=== PATIENT | male | born 1960 | race Caucasian/White ===

== ENCOUNTER 2018-07-06 06:25 | Day surgery (SDC) | payer OTHER ==
--- NOTE | 2018-07-04 09:01 | RAD REPORT ---
EXAM DESCRIPTION: RAD - Chest Pa And Lat (2 Views) - 07/04/2018 8:46 am CLINICAL HISTORY: Preop chest, pending cardiac catheterization COMPARISON: May 2014 TECHNIQUE: PA and lateral views of the chest were obtained. FINDINGS: The lungs are clear of a focal process. Interstitial pattern is prominent but stable. Ster notomy wires are in place. Heart size is normal and central vasculature is within normal limits. N o pleural effusion or pneumothorax seen. No acute bony finding noted. No aortic abnormality. IMPRESSION: No acute cardiopulmonary process. Prominent interstitial pattern matches 2015.
[2018-07-04 09:08] LABS: Absolute Lymphocytes (CBC) 2.3 K/uL (0.7-4.9); Basophils % 0.3 % (0-1.3); Eosinophils % 3.2 % (0-4.4); Lymphocytes % 23.2 % (15.3-44.8); MPV 9.5 fL (7.6-11.3); Monocytes % 10.5 % (3.3-12.3); RBC Red Blood Cell Count 5.48 M/uL (4.33-5.43)
[2018-07-04 09:12] LABS: Protime INR 1.11
[2018-07-04 09:20] LABS: Potassium 4.7 mmol/L (3.5-5.1)
[2018-07-06] MEDS ORDERED: LIDOCAINE 1% MPF 30 ML VIAL ONE (06:53)
[2018-07-06] MEDS ORDERED: HEPA 1000U/500MLS 1,000 UNIT/500 ML BAG IV ONE ×2 (06:53→06:59)
[2018-07-06] MEDS ORDERED: NA CHLORIDE 0.9% 500 ML ONE (06:54)
[2018-07-06] MEDS ORDERED: MIDAZOLAM HCL 2 MG/2 ML INJ ONE (07:40)
[2018-07-06] MEDS ORDERED: FENTANYL CITR 100 MCG/2 ML ONE (07:40)
[2018-07-06] MEDS ORDERED: HEPARIN 5000 UNIT/ML 1 ML VIAL ONE (08:03)
[2018-07-06] MEDS ORDERED: ACETYLCYST 20% 4 ML VIAL IH ONE (08:37)
[2018-07-06] MEDS ORDERED: CLOPIDOGREL 75 MG TABLET ONE (08:45)
[2018-07-06 11:36] VITALS: TEMP 97.8; O2SAT 97
[2018-07-06 12:39] VITALS: BP 142/82
--- NOTE | 2018-07-07 01:30 | OP ---
Date of Procedure: 07/06/2018 Surgeon: Garfield Adam MD Schedule Planning Manager: Rei Rutledge and Ms. Martinez. The patient received 300 mg of Plavix after the procedure. He will have a 4-hour bedrest and go home today. He will see me in the office in 2 weeks. No change in his medical regimen. He will be give n Mucomyst because of renal insufficiency with a creatinine 1.4. He was told to hold his metformin f or 48 hours after he goes home. Procedure: Abdominal angiogram with runoff with an angioplasty and stent of the proximal left superf icial femoral artery. Indications: Peripheral arterial disease and claudication. The patient is a 57-year-old white male with history of CAD, CHF, recent claudication documented, art erial Doppler that was positive bilaterally, admitted to the labeling specialist as an outpatient on 07/06/2018. Description Of Procedure: The patient was prepped and draped in the routine sterile fashion, given 4 mg of Versed for sedation. A 6-Yakut sheath introduced in the right common femoral artery. A pigt ail catheter was used to do the abdominal angiography. This was advanced above the renals. Abdomina l angiogram with runoff revealed normal aorta, normal iliacs, normal renals, had multiple stenoses on the right SFA of 50% to 70% with diffuse disease [id number]. On the left side, he had a complet madhuri occluded left SFA proximally with diffuse disease [id number] as well. A 6-Yakut up-and-over sheath was used and exchanged to the first short 6-Yakut sheath. A Glidewire was used to cross the lesion successfully. This was done using a PARNELL catheter. An Damascus balloon was used, 6 x 40, to p re-dilated the lesion successfully. Following that, a Protege stent 6 x 80 was used with 0% residual and excellent flow distally. Complications: There were no complications. Blood Loss: 5 cc. Total Conscious Sedation: 45 minutes. Final Diagnoses: Peripheral arterial disease, status post successful angioplasty and stent of the le ft superficial femoral artery. His right leg does not bother him and, if he starts having claudicati on, they will bring him back to do the right superficial femoral artery. CRISTINA/LUISA Voice ID: [id number] Report ID: [id number]
== END 2018-07-06 12:41 | disposition home or self-care (01) ==
LOC: CCL 06:25
DX: I70.213 Atherosclerosis of native arteries of extremities with intermittent claudication, bilateral legs (principal); I70.92 Chronic total occlusion of artery of the extremities; I25.10 Atherosclerotic heart disease of native coronary artery without angina pectoris; I25.5 Ischemic cardiomyopathy; I10 Essential (primary) hypertension; E78.6 Lipoprotein deficiency; G47.30 Sleep apnea, unspecified; E11.9 Type 2 diabetes mellitus without complications; Z95.1 Presence of aortocoronary bypass graft; Z87.891 Personal history of nicotine dependence; Z88.1 Allergy status to other antibiotic agents; Z82.49 Family history of ischemic heart disease and other diseases of the circulatory system
CPT/HCPCS: 85025; 80048; 36415; 85610; 82962 ×3; 85730; 71046; 75630; 37226; C1893; C1760; C1887; C1769; C1725; J1644; J2250; J3010; 36200

== ENCOUNTER 2020-04-18 17:47 | Emergency (ER) | payer OTHER ==
--- OUTSIDE RECORDS SUMMARY | 2020-04-18 17:49 | XMS REPORT | Continuity of Care Document ---
:1960 Author Organization [facility] t Address [address] [place] [address] [address] [place] [address] Care Team Providers Name Role Phone Provider, Urgent Care Attending Clinician Unavailable Problems This patient has no known problems. Allergies, Adverse Reactions, Alerts This patient has no known allergies or adverse reactions. Medications This patient has no known medications. Procedures This patient has no known procedures. Encounters Start End Encounter Admission Attending Care Care Encounter Source Date/Time Date/Time Type Type Clinicians Facility Department ID 2020-03-06 2020-03-06 Urgent Provider, [facility] [id number] 12:59:17 13:19:17 [facility] [id number] [facility] [id number] [place] [phone] [address] Results This patient has no known results.
[2020-04-18 20:05] LABS: Absolute Lymphocytes (CBC) 3.6 K/uL (0.7-4.9); Basophils % 0.9 % (0-1.3); Hematocrit 42.3 % (39.6-49.0); Lymphocytes % 26.2 % (15.3-44.8); MPV 8.9 fL (7.6-11.3); RBC Red Blood Cell Count 5.37 M/uL (4.33-5.43)
[2020-04-18 20:16] LABS: Protime INR 1.33
--- NOTE | 2020-04-18 20:21 | RAD REPORT ---
EXAM DESCRIPTION: Yaniv Single View04/18/2020 8:08 pm CLINICAL HISTORY: Chest pain COMPARISON: 2019 FINDINGS: The lungs appear clear of acute infiltrate. The heart is mildly enlarged. Postsurgical changes involve the chest. IMPRESSION: No acute abnormalities displayed
[2020-04-18 20:22] LABS: Potassium 3.8 mmol/L (3.5-5.1)
[2020-04-18] MEDS ORDERED: FUROSEMIDE 100 MG/10 ML VIAL IV ONE (20:46)
[2020-04-18 21:35] LABS: Urine Bacteria 20-50 /HPF (NONE SEEN); Urine RBC <5 /HPF (NONE SEEN)
[2020-04-18 21:52] LABS: Urine Blood NEGATIVE (NEG); Urine Glucose NEGATIVE (NEG); Urine Protein 2+ (NEG); Urine Specific Gravity 1.025 (1.005-1.030); Urine pH 6.5 (5.0-7.0)
[2020-04-18] MEDS ORDERED: CIPROFLOXACIN HCL 500 MG TAB ONE (22:12)
--- NOTE | 2020-04-18 22:38 | ER ---
Nurse's Notes [facility] Name: Enma Ribeiro Age: 59 yrs Sex: Male : 1960 Arrival Date: 04/18/2020 Time: 17:52 Bed 5 Private MD: Diagnosis: Unspecified atrial fibrillation;Unspecified combined systolic (congestive) and diastolic (congestive) heart failure;Urinary tract infection, site not specified Presentation: 04/18 18:04 Chief complaint: Chief complaint: Patient states: congestion, chest pain, SOB, and HR aa5 around 105bpm at home for the past 2-3 days ago. Pt currently denies any complaints. Coronavirus screen: congestion. Ebola Screen: Patient negative for fever greater than or equal to 101.5 degrees Fahrenheit, and additional compatible Ebola Virus Disease symptoms. Initial Sepsis Screen: Does the patient meet any 2 criteria? HR > 90 bpm. Does the patient have a suspected source of infection? No. Patient's initial sepsis screen is negative. Risk Assessment: Do you want to hurt yourself or someone else? Unable to obtain. Onset of symptoms was April 2020. 18:04 Acuity: SIERRA 3 aa5 18:04 Method Of Arrival: Ambulatory aa5 Historical: - Allergies: 18:04 Keflex; aa5 - PMHx: 18:04 Diabetes - IDDM; CVA; Hypertension; aa5 18:04 Aphasia; aa5 - PSHx: 18:04 heart bypass; Hernia repair; aa5 - Immunization history:: Adult Immunizations unknown. - Social history:: Smoking status: Patient denies any tobacco usage or history of. - Family history:: not pertinent. - Hospitalizations: : No recent hospitalization is reported. Screenin:56 Abuse screen: Denies threats or abuse. Denies injuries from another. Nutritional rr5 screening: No deficits noted. Tuberculosis screening: No symptoms or risk factors identified. Fall Risk IV access (20 points). Total Mcfarlane Fall Scale indicates No Risk (0-24 pts). Assessment: 19:56 General: Appears in no apparent distress. comfortable, Behavior is calm, cooperative, rr5 appropriate for age. Pain: Denies pain. Neuro: Level of Consciousness is awake, alert, obeys commands, Oriented to person, place, time. Cardiovascular: Reports palpitations, Capillary refill < 3 seconds Patient's skin is warm and dry. Respiratory: Reports shortness of breath congestion Airway is patent Respiratory effort is even, unlabored, Respiratory pattern is regular, symmetrical. GI: No signs and/or symptoms were reported involving the gastrointestinal system. : No signs and/or symptoms were reported regarding the genitourinary system. EENT: No signs and/or symptoms were reported regarding the EENT system. Derm: Skin is intact, is healthy with good turgor, Skin temperature is warm. Musculoskeletal: Circulation, motion, and sensation intact. Capillary refill < 3 seconds. 21:15 Reassessment: Patient appears in no apparent distress at this time. Patient is alert, rr5 oriented x 3, equal unlabored respirations, skin warm/dry/pink. 22:45 Reassessment: Patient and/or family updated on plan of care and expected duration. Pain ea level reassessed. Patient is alert, oriented x 3, equal unlabored respirations, skin warm/dry/pink. Discharge instruction given to patient, verbalized the understanding of instruction. Pt left ED ambulatory accompanied by Patient states feeling better. Vital Signs: 18:05 BP 129 / 88; Pulse 105; Resp 18 S; Temp 98.0(O); Pulse Ox 96% on R/A; Weight 99.79 kg aa5 (R); Height 6 ft. 0 in. (182.88 cm) (R); Pain 0/10; 19:59 BP 126 / 81; Pulse 100; Resp 20; Pulse Ox 95% ; ea 21:30 BP 109 / 76; Pulse 98; Resp 19; Pulse Ox 98% ; rr5 22:33 BP 129 / 82; Pulse 92; Resp 20; Pulse Ox 95% ; ea 18:05 Body Mass Index 29.84 (99.79 kg, 182.88 cm) aa5 ED Course: 17:52 Patient arrived in ED. mr 18:04 Arm band placed on. aa5 18:06 Triage completed. aa5 19:39 Kushal Jolly MD is Attending Physician. rn 19:50 Yonas Gilbert, COLE is Primary Nurse. rr5 19:56 Inserted saline lock: 20 gauge in left forearm, using aseptic technique. ,using aseptic rr5 technique. inserted by betsy GALVAN Blood collected. 19:57 Patient has correct armband on for positive identification. Placed in gown. Bed in low rr5 position. Call light in reach. monitor and storage bin tender on. Pulse ox on. NIBP on. 20:18 XRAY Chest (1 view) In Process Unspecified. EDMS 22:37 Garfield Adam MD is Referral Physician. rn 22:44 IV discontinued, intact, bleeding controlled, No redness/swelling at site. Pressure ea dressing applied. 22:46 No provider procedures requiring assistance completed. ea Administered Medications: 20:34 Drug: Lasix 60 mg Route: IVP; Site: left antecubital; ea 21:00 Follow up: Response: No adverse reaction ea 22:01 Drug: Cipro (ciprofloxacin) 500 mg Route: PO; rr5 22:47 Follow up: Response: No adverse reaction ea Outcome: 22:37 Discharge ordered by MD. rn 22:46 Discharged to home ambulatory, with family. ea 22:46 Condition: stable 22:46 Discharge instructions given to patient, Instructed on discharge instructions, follow up and referral plans. medication usage, Demonstrated understanding of instructions, follow-up care, medications, Prescriptions given X 1. 22:47 Patient left the ED. ea Signatures: Dispatcher [employer] [facility] Jazmine TerrazasKushal MD MD rn Calderon, Audri RN RN aa5 Betsy Wiggins RN Yonas Alvarenga ea, RN RN rr5 Corrections: (The following items were deleted from the chart) 19:58 19:56 Respiratory: Reports congestion Airway is patent Respiratory effort is even, rr5 unlabored, Respiratory pattern is regular, symmetrical, rr5
--- NOTE | 2020-04-18 22:38 | EDPHYS ---
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 19:52 The patient has shortness of breath with light activity. rn 19:53 Onset: The symptoms/episode began/occurred 3 day(s) ago. Duration: The symptoms are rn intermittent. The patient's shortness of breath is aggravated by light activity, is alleviated by rest. Associated signs and symptoms: Pertinent positives: non-productive cough, Pertinent negatives: fever, hemoptysis, vomiting. Severity of symptoms: At their worst the symptoms were mild in the emergency department the symptoms are unchanged. The patient has experienced a previous episode. The patient has not recently seen a physician. Reports 2-3 days of sob, with exertion, better with rest, no fever, + non-productive cough. Denies blood in stool, reports urine a bit darker recently. No chest pain/abd pain. No hx of kidney stones. . Historical: - Allergies: 18:04 Keflex; aa5 - PMHx: 18:04 Diabetes - IDDM; CVA; Hypertension; aa5 18:04 Aphasia; aa5 - PSHx: 18:04 heart bypass; Hernia repair; aa5 - Immunization history:: Adult Immunizations unknown. - Social history:: Smoking status: Patient denies any tobacco usage or history of. - Family history:: not pertinent. - Hospitalizations: : No recent hospitalization is reported. ROS: 19:53 Constitutional: Negative for fever, chills, and weight loss, Eyes: Negative for injury, rn pain, redness, and discharge, ENT: Negative for injury, pain, and discharge, Neck: Negative for injury, pain, and swelling, Cardiovascular: Negative for chest pain, palpitations Respiratory: Negative for wheezing, and pleuritic chest pain, Abdomen/GI: Negative for abdominal pain, nausea, vomiting, diarrhea, and constipation, Back: Negative for injury and pain, : Negative for injury, discharge, and swelling, MS/Extremity: Negative for injury and deformity, Skin: Negative for injury, rash, and discoloration, Neuro: Negative for headache, weakness, numbness, tingling, and seizure. 19:53 All other systems are negative. Exam: 19:53 Constitutional: This is a well developed, well nourished patient who is awake, alert, rn and in no acute distress. Head/Face: Normocephalic, atraumatic. Eyes: Conjunctiva and sclera are non-icteric and not injected. Cardiovascular: Tachycardic, irregular Respiratory: Dysphasia, No increased work of breathing, no retractions or nasal flaring. Abdomen/GI: soft, non-tender Skin: Warm, dry MS/ Extremity: Pulses equal, no cyanosis. + 1+ pitting edema bilateral lower ext, R>L circumference (states baseline since bypass grafts taken) Neuro: Awake and alert, GCS 15 20:55 ECG was reviewed by the Attending Physician. rn Vital Signs: 18:05 BP 129 / 88; Pulse 105; Resp 18 S; Temp 98.0(O); Pulse Ox 96% on R/A; Weight 99.79 kg aa5 (R); Height 6 ft. 0 in. (182.88 cm) (R); Pain 0/10; 19:59 BP 126 / 81; Pulse 100; Resp 20; Pulse Ox 95% ; ea 21:30 BP 109 / 76; Pulse 98; Resp 19; Pulse Ox 98% ; rr5 22:33 BP 129 / 82; Pulse 92; Resp 20; Pulse Ox 95% ; ea 18:05 Body Mass Index 29.84 (99.79 kg, 182.88 cm) aa5 MDM: 19:39 Patient medically screened. rn 22:33 Differential diagnosis: Anemia CHF exacerbation, pneumonia, Pneumothorax pulmonary rn edema. Data reviewed: vital signs, nurses notes, lab test result(s), EKG, radiologic studies, plain films, and as a result, I will discharge patient. Counseling: I had a detailed discussion with the patient and/or guardian regarding: the historical points, exam findings, and any diagnostic results supporting the discharge/admit diagnosis, lab results, radiology results, the need for outpatient follow up, to return to the emergency department if symptoms worsen or persist or if there are any questions or concerns that arise at home. Response to treatment: the patient's symptoms have markedly improved after treatment, and as a result, I will discharge patient. Special discussion: I discussed with the patient/guardian in detail that at this point there is no indication for admission to the hospital. It is understood, however, that if the symptoms persist or worsen the patient needs to return immediately for re-evaluation. Based on the history and exam findings, there is no indication for further emergent testing or inpatient evaluation. I discussed with the patient/guardian the need to see the assistive technology specialist for further evaluation of the symptoms. ED course: Pt improved, ambulates without hypoxia, HR down to 90, stable vitals, ecg shows afib, pt already on eliquis. CXR clear, BNP 1500, given orthopnea edema, likely chf exacerbation. Spoke about options of admit vs dc home, patient prefers dc home, told him to double his lasix for 3 days and f/u with Dr. Adam. Pt feels better. . 04/18 19:51 Order name: CBC with Diff 04/18 19:51 Order name: Basic Metabolic Panel; Complete Time: 20:24 04/18 19:51 Order name: Protime (+inr) 04/18 19:51 Order name: Ptt, Activated 04/18 19:51 Order name: BNP; Complete Time: 20:24 04/18 19:51 Order name: Urine Culture 04/18 19:51 Order name: XRAY Chest (1 view); Complete Time: 20:24 04/18 19:51 Order name: Urine Microscopic Only; Complete Time: 21:41 04/18 20:14 Order name: CBC with Automated Diff; Complete Time: 20:24 EDAL 04/18 20:18 Order name: Protime (+INR) [facility] 04/18 20:18 Order name: PTT, Activated Partial Thromb [facility] 04/18 21:02 Order name: Urine Dipstick--Ancillary (enter results); Complete Time: 22:06 mw2 04/18 19:51 Order name: IV Start; Complete Time: 19:56 rn 04/18 19:51 Order name: Urine Dipstick-Ancillary (obtain specimen); Complete Time: 21:31 rn 04/18 19:51 Order name: EKG; Complete Time: 19:52 rn 04/18 19:51 Order name: EKG - Nurse/Tech; Complete Time: 19:55 rn EC:55 Rate is 101 beats/min. Rhythm is irregularly irregular. QRS [place] is Normal. NC interval rn is normal. QRS interval is normal. QT interval is normal. No Q waves. T waves are Normal. No ST changes noted. Clinical impression: Atrial Fibrillation. Interpreted by me. Reviewed by me. Administered Medications: 20:34 Drug: Lasix 60 mg Route: IVP; Site: left antecubital; ea 21:00 Follow up: Response: No adverse reaction ea 22:01 Drug: Cipro (ciprofloxacin) 500 mg Route: PO; rr5 22:47 Follow up: Response: No adverse reaction ea Disposition: 04/18/20 22:37 Discharged to Home. Impression: Unspecified atrial fibrillation, Unspecified combined systolic (congestive) and diastolic (congestive) heart failure, Urinary tract infection, site not specified. - Condition is Stable. - Discharge Instructions: Atrial Fibrillation, Heart Failure, Urinary Tract Infection, Adult. - Prescriptions for Cipro 500 mg Oral Tablet - take 1 tablet by ORAL route every 12 hours for 10 days; 20 tablet. - Medication Reconciliation Form, Thank You Letter, Antibiotic Education, Prescription Opioid Use form. - Follow up: Garfield Adam MD; When: 2 - 3 days; Reason: Recheck today's complaints, Re-evaluation by your physician. - Problem is an acute exacerbation. - Symptoms have improved. Signatures: Dispatcher [employer] EDMS Kushal Jolly MD MD rn Calderon, Audri, RN RN aa5 Betsy Wiggins RN RN Yonas Priest RN RN rr5 Corrections: (The following items were deleted from the chart) 20:55 19:53 Constitutional: This is a well developed, well nourished patient who is awake, rn alert, and in no acute distress. Head/Face: Normocephalic, atraumatic. Eyes: Conjunctiva and sclera are non-icteric and not injected. Cardiovascular: Tachycardic, regular Respiratory: Dysphasia, No increased work of breathing, no retractions or nasal flaring. Abdomen/GI: soft, non-tender Skin: Warm, dry MS/ Extremity: Pulses equal, no cyanosis. + 1+ pitting edema bilateral lower ext, R>L circumference (states baseline since bypass grafts taken) Neuro: Awake and alert, GCS 15 rn 22:47 22:37 04/18/2020 22:37 Discharged to Home. Impression: Unspecified atrial fibrillation; ea Unspecified combined systolic (congestive) and diastolic (congestive) heart failure; Urinary tract infection, site not specified. Condition is Stable. Forms are Medication Reconciliation Form, Thank You Letter, Antibiotic Education, Prescription Opioid Use. Follow up: Garfield Adam; When: 2 - 3 days; Reason: Recheck today's complaints, Re-evaluation by your physician. Problem is an acute exacerbation. Symptoms have improved. rn
[2020-04-18 22:56] VITALS: TEMP 98
[2020-04-18 23:01] VITALS: BP 129/82; O2SAT 95
--- NOTE | 2020-04-19 08:30 | EKG ---
Test Date: 2020-04-18 Test Time: 18:08:49 Inspector Barrel: SHEELA MEASUREMENT RESULTS: Intervals: Rate: 101 VT: QRSD: 96 QT: 372 QTc: 482 [place]: P: VT: QRS: 70 T: 125 INTERPRETIVE STATEMENTS: Atrial fibrillation with rapid ventricular response Nonspecific ST abnormality Abnormal ECG Compared to ECG 05/17/2014 10:11:16 ST (T wave) deviation now present Sinus rhythm no longer present T-wave abnormality no longer present Prolonged QT interval no longer present Electronically Signed On 04-19-20 08:28:52 GRADUATE STUDENT INSTRUCTOR by Garfield Adam
== END 2020-04-18 22:47 | disposition home or self-care (01) ==
LOC: ER 17:47
DX: I11.0 Hypertensive heart disease with heart failure (principal); I50.40 Unspecified combined systolic (congestive) and diastolic (congestive) heart failure; I48.91 Unspecified atrial fibrillation; N39.0 Urinary tract infection, site not specified; E11.9 Type 2 diabetes mellitus without complications; Z79.4 Long term (current) use of insulin; I69.320 Aphasia following cerebral infarction; Z95.1 Presence of aortocoronary bypass graft
CPT/HCPCS: 36415; 71045; 80048; 81003; 81015; 83880; 85025; 85610; 85730; 87086; 87088; 93005; 96374; 99284

== ENCOUNTER 2020-05-07 08:04 | Day surgery (SDC) | payer OTHER ==
[2020-05-06 13:18] VITALS: BMI 4218.0
[2020-05-06 14:09] LABS: Absolute Lymphocytes (CBC) 2.8 K/uL (0.7-4.9); Basophils % 0.6 % (0-1.3); Hematocrit 43.5 % (39.6-49.0); MPV 9.8 fL (7.6-11.3); RBC Red Blood Cell Count 5.59 M/uL (4.33-5.43)
[2020-05-06 14:11] LABS: Protime INR 1.34
[2020-05-06 14:22] LABS: Potassium 4.3 mmol/L (3.5-5.1)
[2020-05-07] MEDS ORDERED: NA CHLORIDE 0.9% 500 ML ONE (08:54)
[2020-05-07] MEDS ORDERED: MIDAZOLAM HCL 10 ML ONE (09:27)
[2020-05-07] MEDS ORDERED: ATROPINE SULF 1 MG/10 ML SYR IV ONE (09:27)
[2020-05-07] MEDS ORDERED: FLUMAZENIL 0.1 MG/ML (5 mL VIAL) IV ONE (09:27)
[2020-05-07] MEDS ORDERED: MIDAZOLAM HCL 2 MG/2 ML INJ ONE (10:04)
[2020-05-07 11:11] VITALS: TEMP 96.7
[2020-05-07 11:51] VITALS: BP 127/75; O2SAT 97
--- NOTE | 2020-05-07 13:05 | OP ---
Date of Procedure: 05/07/2020 Surgeon: Garfield Adam MD Procedure: Direct current cardioversion. Indication: Atrial fibrillation. Procedure In Detail: Mr. Ribeiro is a 59-year-old male who has a history of pacemaker, coronary arter y disease status post CABG, congestive heart failure. New onset atrial fibrillation with symptoms. Has been taking beta-blockers and Xarelto for a few weeks, brought to the lab manager today as an outpat ient. He received a total of 30 mg of Versed IV push for total sedation, 1 shock of 100 joules conve rted him from atrial fibrillation to sinus rhythm. There were no complications. There was no blood loss Final Diagnosis: Atrial fibrillation, status post successful cardioversion to sinus rhythm. He will continue his beta tomas and Xarelto. He can go home when he wakes up. I will see him in the offi ce in next 2 weeks. If he goes back into atrial fibrillation, we will consider amiodarone or an abla tion. CRISTINA/LUISA Voice ID: [id number] Report ID: [id number]
--- NOTE | 2020-05-07 17:00 | EKG ---
Test Date: 2020-05-07 Test Time: 09:01:15 Application Programmer Analyst: UMER MEASUREMENT RESULTS: Intervals: Rate: 85 KS: 172 QRSD: 90 QT: 418 QTc: 497 [place]: P: 87 [place]: 172 QRS: 60 T: 119 INTERPRETIVE STATEMENTS: Normal sinus rhythm T wave abnormality, consider lateral ischemia Prolonged QT Abnormal ECG Compared to ECG 04/18/2020 18:08:49 T-wave abnormality now present Possible ischemia now present Prolonged QT interval now present Atrial fibrillation no longer present ST (T wave) deviation no longer present Electronically Signed On 05-07-20 17:00:26 CDT by Garfield Adam
== END 2020-05-07 12:27 | disposition home or self-care (01) ==
LOC: CCL 08:04
DX: I48.0 Paroxysmal atrial fibrillation (principal); I25.10 Atherosclerotic heart disease of native coronary artery without angina pectoris; I65.23 Occlusion and stenosis of bilateral carotid arteries; I11.0 Hypertensive heart disease with heart failure; I50.9 Heart failure, unspecified; I25.5 Ischemic cardiomyopathy; I70.213 Atherosclerosis of native arteries of extremities with intermittent claudication, bilateral legs; E78.2 Mixed hyperlipidemia; E11.9 Type 2 diabetes mellitus without complications; G47.33 Obstructive sleep apnea (adult) (pediatric); Z95.1 Presence of aortocoronary bypass graft; Z95.0 Presence of cardiac pacemaker; Z79.01 Long term (current) use of anticoagulants; Z88.1 Allergy status to other antibiotic agents; Z87.891 Personal history of nicotine dependence; Z82.49 Family history of ischemic heart disease and other diseases of the circulatory system
CPT/HCPCS: 93005; 85025; 80048; 36415; 85610; 82947 ×2; 85730; 92960; U0003; J2250 ×2; J7040

== ENCOUNTER 2021-01-29 09:18 | Emergency (ER) | payer OTHER ==
--- OUTSIDE RECORDS SUMMARY | 2021-01-29 09:23 | XMS REPORT | Continuity of Care Document ---
:1960 Author Organization [facility] t Address [address] [place] [address] Care Team Providers Name Role Phone Tor Primary Care Physician SHA JOHNSON Attending Clinician Unavailable Leslie LIU Attending Clinician Unavailable Dyan GALVAN Attending Clinician Unavailable RASHEEDA, Manuel Attending Clinician Unavailable Nurse, Urgent Care Attending Clinician Unavailable Rasheeda MARK, J Attending Clinician Mateo [employer] Attending Clinician Provider, Urgent Care Attending Clinician Unavailable Unknown Attending Clinician Unavailable Radha Tipton Attending Clinician Radha AYALA Attending Clinician Unavailable Payers Payer Name Policy Type Policy Number Effective Date Expiration Date S oursummer MEDICARE PART A [id number] 2016 AND B 00:00:00 MEDICARE PART A [id number] 2016 \\T\\ B 00:00:00 [employer] INDEMNITY [id number] 2016 00:00:00 Problems Condition Condition Condition Status Onset Resolution Last Treating Co mments Source Name Details Category Date Date Treatment Clinician Date Type 2 Type 2 Disease Active 2020- [facility] diabetes diabetes 3-29 Health mellitus mellitus 00:00: with with 00 hypoglycem hypoglycem ia ia Diabetes Diabetes Disease Active 2019-02 UT type 2, type 2, 02-23 Health uncontroll uncontroll 00:00: ed ed 00 Essential Essential Disease Active 2019-02 UT hypertensi hypertensi 02-23 He alth on on 00:00: 00 Hyperlipid Hyperlipid Disease Active 2019-02 U T emia emia 02-23 Health 00:00: 00 Obesity Obesity Disease Active 2019-02 UT 117 Health 00:00: 00 GARRETT GARRETT Disease Active 2019-02 UT (obstructi (obstructi 02-23 He alth ve sleep ve sleep 00:00: apnea) apnea) 00 Uncontroll Uncontroll Disease Active U T ed ed 8-21 Health diabetes diabetes 00:00: mellitus mellitus 00 Cardioembo Cardioembo Disease Active U T lic stroke lic stroke 2-01 He alth 00:00: 00 Cerebral Cerebral Disease Active UT embolism embolism 6-15 Health with with 00:00: cerebral cerebral 00 infarction infarction Vitamin D Vitamin D Disease Active UT insufficie insufficie 9-06 He alth ncy ncy 00:00: 00 Acute Acute Disease Active UT ischemic ischemic 3-10 Health stroke stroke 00:00: 00 Coronary Coronary Disease Active UT artery artery 6-16 Health disease disease 00:00: 00 Palpitatio Palpitatio Disease Active U T n n 6-12 Health 00:00: 00 No known No known Disease Unive rs active active ity of problems problems [facility] Allergies, Adverse Reactions, Alerts Allergy Allergy Status Severity Reaction(s) Onset Inactive Treating Comm ents Source Name Type Date Date Clinician Cephalex Allergy Active [facility] in to 723 Health substanc 00:00: e 00 CEPHALEX DRUG Active Hives Univers IN INGREDI 03-06 ity of 00:00: [place] 00 [facility] Branch Cephalex Propensi Active Hives Univer s in ty to 03-06 ity of adverse 00:00: [place] reaction 00 Medical s Branch NO KNOWN Drug Active Univers ALLERGIE Class ity of S [facility] Social History Social Habit Start Date Stop Date Quantity Comments Source History [facility] Health Alcohol Frequency History [facility] Alcohol Std Drinks History [facility] Alcohol Binge Exposure to Not sure [facility] SARS-CoV-2 (event) Alcohol Comment 2020-09-01 2020-09-01 [facility]ional [facility] 00:00:00 00:00:00 Drinker. Tobacco use and 2020-04-18 2020-04-18 Never used Universit y of exposure 00:00:00 00:00:00 [facility] Alcohol intake 2020-04-182020-04-18 Lifetime University of 00:00:00 00:00:00 non-drinker [facility] (finding) Branch Sex [birth year] At [birth year] Universit y of 00:00:00 00:00:00 [facility] Smoking Status Start Date Stop Date Source Unknown if ever smoked [facility] Never smoker [facility] Medications Ordered Filled Start Stop Current Ordering Indication Dosage Frequency Signature Comments Components Source Medication Medication Date Date Medication? Clinician (SIG) Name Name Dulaglutide 2020-02- Yes [id number] 3mg Inject 3 UT (Trulicity) 0-18 01-17 mg under Hea lth 3 MG/0.5ML 00:00: 05:59 the skin 1 solution 00 :00 (one) time pen-injecto per week. r Dulaglutide 2020-02- Yes [id number] 3mg Inject 3 UT (Trulicity) 0-18 01-17 mg under Hea lth 3 MG/0.5ML 00:00: 05:59 the skin 1 solution 00 :00 (one) time pen-injecto per week. r Dulaglutide 2020-02- No [id number] 3mg Inject 3 UT (Trulicity) 0-18 10-18 mg under Hea lth 3 MG/0.5ML 00:00: 00:00 the skin 1 solution 00 :00 (one) time pen-injecto per week. r Dulaglutide 2020-02- No [id number] 3mg Inject 3 UT (Trulicity) 0-18 10-18 mg under Hea lth 3 MG/0.5ML 00:00: 00:00 the skin 1 solution 00 :00 (one) time pen-injecto per week. r metFORMIN Yes [id number] TAKE 2 UT XR 9-13 9109 TABLETS BY Health (Glucophage 00:00: MOUTH -XR) 500 MG 00 TWICE A 24 hr DAY tablet metFORMIN Yes [id number] TAKE 2 UT XR 9-13 9109 TABLETS BY Health (Glucophage 00:00: MOUTH -XR) 500 MG 00 TWICE A 24 hr DAY tablet metFORMIN Yes [id number] TAKE 2 UT XR 9-13 9109 TABLETS BY Health (Glucophage 00:00: MOUTH -XR) 500 MG 00 TWICE A 24 hr DAY tablet metFORMIN Yes [id number] TAKE 2 UT XR 9-13 9109 TABLETS BY Health (Glucophage 00:00: MOUTH -XR) 500 MG 00 TWICE A 24 hr DAY tablet metFORMIN Yes [id number] TAKE 2 UT XR 9-13 9109 TABLETS BY Health (Glucophage 00:00: MOUTH -XR) 500 MG 00 TWICE A 24 hr DAY tablet BD Pen 2020- No [id number] USE 5 UT Needle Ashley 8-26 11-25 TIMES Health U/F 32G X 4 00:00: 05:59 DAILY WITH MM misc 00 :00 LEVEMIR AND NOVOLOG BD Pen 2020- No [id number] USE 5 UT Needle [place] 8-26 11-25 TIMES Health U/F 32G X 4 00:00: 05:59 DAILY WITH MM misc 00 :00 LEVEMIR AND NOVOLOG BD Pen 2020- No [id number] USE 5 UT Needle [place] 8-26 11-25 TIMES Health U/F 32G X 4 00:00: 05:59 DAILY WITH MM misc 00 :00 LEVEMIR AND NOVOLOG BD Pen 2020- No [id number] USE 5 UT Needle [place] 8-26 11-25 TIMES Health U/F 32G X 4 00:00: 05:59 DAILY WITH MM misc 00 :00 LEVEMIR AND NOVOLOG BD Pen 2020- No [id number] USE 5 UT Needle [place] 8-26 11-25 TIMES Health U/F 32G X 4 00:00: 05:59 DAILY WITH MM misc 00 :00 LEVEMIR AND NOVOLOG BD Pen 2020- No [id number] USE 5 UT Needle [place] 8-26 11-25 TIMES Health U/F 32G X 4 00:00: 05:59 DAILY WITH MM misc 00 :00 LEVEMIR AND NOVOLOG BD Pen 2020- No [id number] USE 5 UT Needle [place] 8-26 11-25 TIMES Health U/F 32G X 4 00:00: 05:59 DAILY WITH MM misc 00 :00 LEVEMIR AND NOVOLOG BD Pen 2020- No [id number] USE 5 UT Needle [place] 8-26 11-25 TIMES Health U/F 32G X 4 00:00: 05:59 DAILY WITH MM misc 00 :00 LEVEMIR AND NOVOLOG spironolact 2021-0 Yes 25mg QD Take 25 mg UT one 7-21 by mouth 1 Health (Aldactone) 00:00: (one) time 25 MG 00 each day. tablet spironolact 2021-0 Yes 25mg QD Take 25 mg UT one 7-21 by mouth 1 Health (Aldactone) 00:00: (one) time 25 MG 00 each day. tablet spironolact 2021-0 Yes 25mg QD Take 25 mg UT one 7-21 by mouth 1 Health (Aldactone) 00:00: (one) time 25 MG 00 each day. tablet spironolact 2021-0 Yes 25mg QD Take 25 mg UT one 7-21 by mouth 1 Health (Aldactone) 00:00: (one) time 25 MG 00 each day. tablet spironolact 2021-0 Yes 25mg QD Take 25 mg UT one 7-21 by mouth 1 Health (Aldactone) 00:00: (one) time 25 MG 00 each day. tablet spironolact 2021-0 Yes 25mg QD Take 25 mg UT one 7-21 by mouth 1 Health (Aldactone) 00:00: (one) time 25 MG 00 each day. tablet spironolact 2021-0 Yes 25mg QD Take 25 mg UT one 7-21 by mouth 1 Health (Aldactone) 00:00: (one) time 25 MG 00 each day. tablet spironolact 2021-0 Yes 25mg QD Take 25 mg UT one 7-21 by mouth 1 Health (Aldactone) 00:00: (one) time 25 MG 00 each day. tablet spironolact 2021-0 Yes 25mg QD Take 25 mg UT one 7-21 by mouth 1 Health (Aldactone) 00:00: (one) time 25 MG 00 each day. tablet Trulicity 2021-0 Yes [id number] INJECT UT 1.5 7-19 9109 UNDER THE Health MG/0.5ML 00:00: SKIN 1.5MG solution 00 ONCE A pen-injecto WEEK r Trulicity 2021-0 Yes [id number] INJECT UT 1.5 7-19 9109 UNDER THE Health MG/0.5ML 00:00: SKIN 1.5MG solution 00 ONCE A pen-injecto WEEK r Trulicity Yes [id number] INJECT UT 1.5 7-19 9109 UNDER THE Health MG/0.5ML 00:00: SKIN 1.5MG solution 00 ONCE A pen-injecto WEEK r Trulicity Yes [id number] INJECT UT 1.5 7-19 9109 UNDER THE Health MG/0.5ML 00:00: SKIN 1.5MG solution 00 ONCE A pen-injecto WEEK r Trulicity Yes [id number] INJECT UT 1.5 7-19 9109 UNDER THE Health MG/0.5ML 00:00: SKIN 1.5MG solution 00 ONCE A pen-injecto WEEK r Trulicity Yes [id number] INJECT UT 1.5 7-19 9109 UNDER THE Health MG/0.5ML 00:00: SKIN 1.5MG solution 00 ONCE A pen-injecto WEEK r Trulicity Yes [id number] INJECT UT 1.5 7-19 9109 UNDER THE Health MG/0.5ML 00:00: SKIN 1.5MG solution 00 ONCE A pen-injecto WEEK r Trulicity Yes [id number] INJECT UT 1.5 7-19 9109 UNDER THE Health MG/0.5ML 00:00: SKIN 1.5MG solution 00 ONCE A pen-injecto WEEK r Trulicity Yes [id number] INJECT UT 1.5 7-19 9109 UNDER THE Health MG/0.5ML 00:00: SKIN 1.5MG solution 00 ONCE A pen-injecto WEEK r Trulicity Yes [id number] INJECT UT 1.5 7-19 9109 UNDER THE Health MG/0.5ML 00:00: SKIN 1.5MG solution 00 ONCE A pen-injecto WEEK r amiodarone Yes 200mg Q.5D Take 200 UT (Pacerone) 7-06 mg by Health 200 MG 00:00: mouth 2 tablet 00 (two) times a day. amiodarone Yes 200mg Q.5D Take 200 UT (Pacerone) 7-06 mg by Health 200 MG 00:00: mouth 2 tablet 00 (two) times a day. amiodarone 2020-0 Yes 200mg Q.5D Take 200 UT (Pacerone) 7-06 mg by Health 200 MG 00:00: mouth 2 tablet 00 (two) times a day. amiodarone 2020-0 Yes 200mg Q.5D Take 200 UT (Pacerone) 7-06 mg by Health 200 MG 00:00: mouth 2 tablet 00 (two) times a day. amiodarone 2020-0 Yes 200mg Q.5D Take 200 UT (Pacerone) 7-06 mg by Health 200 MG 00:00: mouth 2 tablet 00 (two) times a day. amiodarone 2020-0 Yes 200mg Q.5D Take 200 UT (Pacerone) 7-06 mg by Health 200 MG 00:00: mouth 2 tablet 00 (two) times a day. amiodarone 2020-0 Yes 200mg Q.5D Take 200 UT (Pacerone) 7-06 mg by Health 200 MG 00:00: mouth 2 tablet 00 (two) times a day. amiodarone 2020-0 Yes 200mg Q.5D Take 200 UT (Pacerone) 7-06 mg by Health 200 MG 00:00: mouth 2 tablet 00 (two) times a day. amiodarone 2020-0 Yes 200mg Q.5D Take 200 UT (Pacerone) 7-06 mg by Health 200 MG 00:00: mouth 2 tablet 00 (two) times a day. Eliquis 5 2020-0 Yes UT MG tablet 6-30 Health 00:00: 00 Eliquis 5 2020-0 Yes UT MG tablet 6-30 Health 00:00: 00 Eliquis 5 2020-0 Yes UT MG tablet 6-30 Health 00:00: 00 Eliquis 5 2020-0 Yes UT MG tablet 6-30 Health 00:00: 00 Eliquis 5 2020-0 Yes UT MG tablet 6-30 Health 00:00: 00 Eliquis 5 2020-0 Yes UT MG tablet 6-30 Health 00:00: 00 Eliquis 5 2020-0 Yes UT MG tablet 6-30 Health 00:00: 00 Eliquis 5 2020-0 Yes UT MG tablet 6-30 Health 00:00: 00 Eliquis 5 2021-0 Yes UT MG tablet 6-30 Health 00:00: 00 furosemide 2021-0 Yes 80mg Q.5D Take 80 mg U T (Lasix) 40 6-27 by mouth 2 Hea lth MG tablet 00:00: (two) 00 times a day. furosemide 2021-0 Yes 80mg Q.5D Take 80 mg U T (Lasix) 40 6-27 by mouth 2 Hea lth MG tablet 00:00: (two) 00 times a day. furosemide 2021-0 Yes 80mg Q.5D Take 80 mg U T (Lasix) 40 6-27 by mouth 2 Hea lth MG tablet 00:00: (two) 00 times a day. furosemide 2021-0 Yes 80mg Q.5D Take 80 mg U T (Lasix) 40 6-27 by mouth 2 Hea lth MG tablet 00:00: (two) 00 times a day. furosemide 2021-0 Yes 80mg Q.5D Take 80 mg U T (Lasix) 40 6-27 by mouth 2 Hea lth MG tablet 00:00: (two) 00 times a day. furosemide 2021-0 Yes 80mg Q.5D Take 80 mg U T (Lasix) 40 6-27 by mouth 2 Hea lth MG tablet 00:00: (two) 00 times a day. furosemide 2021-0 Yes 80mg Q.5D Take 80 mg U T (Lasix) 40 6-27 by mouth 2 Hea lth MG tablet 00:00: (two) 00 times a day. furosemide 2021-0 Yes 80mg Q.5D Take 80 mg U T (Lasix) 40 6-27 by mouth 2 Hea lth MG tablet 00:00: (two) 00 times a day. furosemide 2021-0 Yes 80mg Q.5D Take 80 mg U T (Lasix) 40 6-27 by mouth 2 Hea lth MG tablet 00:00: (two) 00 times a day. metFORMIN 2021-0 Yes [id number] TAKE 2 UT XR 6-18 9109 TABLETS BY Health (Glucophage 00:00: MOUTH -XR) 500 MG 00 TWICE A 24 hr DAY tablet NovoLOG 2021-0 Yes INJECT UT FLEXPEN 100 6-18 UNDER THE Hea lth UNIT/ML 00:00: SKIN 10 injection 00 UNITS BEFORE BREAKFAST, 12 UNITS BEFORE LUNCH, & 14 UNITS BEFORE DINNER metFORMIN 2020-0 Yes [id number] TAKE 2 UT XR 6-18 9109 TABLETS BY Health (Glucophage 00:00: MOUTH -XR) 500 MG 00 TWICE A 24 hr DAY tablet NovoLOG 0 Yes INJECT UT FLEXPEN 100 6-18 UNDER THE Hea lth UNIT/ML 00:00: SKIN 10 injection 00 UNITS BEFORE BREAKFAST, 12 UNITS BEFORE LUNCH, & 14 UNITS BEFORE DINNER NovoLOG 0 Yes INJECT UT FLEXPEN 100 6-18 UNDER THE Hea lth UNIT/ML 00:00: SKIN 10 injection 00 UNITS BEFORE BREAKFAST, 12 UNITS BEFORE LUNCH, & 14 UNITS BEFORE DINNER NovoLOG 0 Yes INJECT UT FLEXPEN 100 6-18 UNDER THE Hea lth UNIT/ML 00:00: SKIN 10 injection 00 UNITS BEFORE BREAKFAST, 12 UNITS BEFORE LUNCH, & 14 UNITS BEFORE DINNER NovoLOG 0 Yes INJECT UT FLEXPEN 100 6-18 UNDER THE Hea lth UNIT/ML 00:00: SKIN 10 injection 00 UNITS BEFORE BREAKFAST, 12 UNITS BEFORE LUNCH, & 14 UNITS BEFORE DINNER NovoLOG 0 Yes INJECT UT FLEXPEN 100 6-18 UNDER THE Hea lth UNIT/ML 00:00: SKIN 10 injection 00 UNITS BEFORE BREAKFAST, 12 UNITS BEFORE LUNCH, & 14 UNITS BEFORE DINNER metFORMIN 2020-0 Yes [id number] TAKE 2 UT XR 6-18 9109 TABLETS BY [employer] (Glucophage 00:00: MOUTH -XR) 500 MG 00 TWICE A 24 hr DAY tablet NovoLOG Yes INJECT UT FLEXPEN 100 6-18 UNDER THE Hea lth UNIT/ML 00:00: SKIN 10 injection 00 UNITS BEFORE BREAKFAST, 12 UNITS BEFORE LUNCH, & 14 UNITS BEFORE DINNER NovoLOG 2020-0 Yes INJECT UT FLEXPEN 100 6-18 UNDER THE Hea lth UNIT/ML 00:00: SKIN 10 injection 00 UNITS BEFORE BREAKFAST, 12 UNITS BEFORE LUNCH, & 14 UNITS BEFORE DINNER metFORMIN 2020-0 Yes [id number] TAKE 2 UT XR 6-18 9109 TABLETS BY [employer] [facility] (Glucophage 00:00: MOUTH -XR) 500 MG 00 TWICE A 24 hr DAY tablet metFORMIN 2020-0 Yes [id number] TAKE 2 UT XR 6-18 9109 TABLETS BY [employer] (Glucophage 00:00: MOUTH -XR) 500 MG 00 TWICE A 24 hr DAY tablet metFORMIN 2020-0 Yes [id number] TAKE 2 UT XR 07-25 9109 TABLETS BY Health (Glucophage 00:00: MOUTH -XR) 500 MG 00 TWICE A 24 hr DAY tablet NovoLOG 2020-0 Yes INJECT UT FLEXPEN 100 18 UNDER THE Hea lth UNIT/ML 00:00: SKIN 10 injection 00 UNITS BEFORE BREAKFAST, 12 UNITS BEFORE LUNCH, & 14 UNITS BEFORE DINNER metFORMIN 2020-0 1- No [id number] TAKE 2 UT XR 07-25 9109 TABLETS BY Health (Glucophage 00:00: 00:00 MOUTH -XR) 500 MG 00 :00 TWICE A 24 hr DAY tablet metFORMIN 2020-0 2020- No [id number] TAKE 2 UT XR 07-25 9109 TABLETS BY Health (Glucophage 00:00: 00:00 MOUTH -XR) 500 MG 00 :00 TWICE A 24 hr DAY tablet fenofibrate 2020-0 Yes UT (Tricor) 508 Health 145 MG 00:00: tablet 00 lisinopril 1-0 Yes UT 5 MG tablet 08 Health 00:00: 00 fenofibrate 2021-0 Yes UT (Tricor) 508 Health 145 MG 00:00: tablet 00 lisinopril 1-0 Yes UT 5 MG tablet 508 Health 00:00: 00 fenofibrate 2021-0 Yes UT (Tricor) 5-08 Health 145 MG 00:00: tablet 00 lisinopril 2021-0 Yes UT 5 MG tablet 508 Health 00:00: 00 fenofibrate 2021-0 Yes UT (Tricor) 5-08 Health 145 MG 00:00: tablet 00 lisinopril 2021-0 Yes UT 5 MG tablet 508 Health 00:00: 00 fenofibrate 2021-0 Yes UT (Tricor) 5-08 Health 145 MG 00:00: tablet 00 lisinopril 2021-0 Yes UT 5 MG tablet 508 Health 00:00: 00 fenofibrate 2021-0 Yes UT (Tricor) 5-08 Health 145 MG 00:00: tablet 00 lisinopril 2021-0 Yes UT 5 MG tablet 508 Health 00:00: 00 fenofibrate 2021-0 Yes UT (Tricor) 5-08 Health 145 MG 00:00: tablet 00 lisinopril 2020-0 Yes UT 5 MG tablet -08 Health 00:00: 00 fenofibrate 2020-0 Yes UT (Tricor) 5-08 Health 145 MG 00:00: tablet 00 lisinopril 2020-0 Yes UT 5 MG tablet 08 Health 00:00: 00 fenofibrate 2020-0 Yes UT (Tricor) 5-08 Health 145 MG 00:00: tablet 00 lisinopril 2020-0 Yes UT 5 MG tablet 08 Health 00:00: 00 carvedilol 2020-0 Yes UT (Coreg) 2-25 Health 12.5 MG 00:00: tablet 00 carvedilol 2020-0 Yes UT (Coreg) 2-25 Health 12.5 MG 00:00: tablet 00 carvedilol 2020-0 Yes UT (Coreg) 2-25 Health 12.5 MG 00:00: tablet 00 carvedilol 2020-0 Yes UT (Coreg) 2-25 Health 12.5 MG 00:00: tablet 00 carvedilol 2020-0 Yes UT (Coreg) 2-25 Health 12.5 MG 00:00: tablet 00 carvedilol 2020-0 Yes UT (Coreg) 2-25 Health 12.5 MG 00:00: tablet 00 carvedilol 2020-0 Yes UT (Coreg) 2-25 Health 12.5 MG 00:00: tablet 00 carvedilol 2020-0 Yes UT (Coreg) 2-25 Health 12.5 MG 00:00: tablet 00 carvedilol 2020-0 Yes UT (Coreg) 2-25 Health 12.5 MG 00:00: tablet 00 atorvastati 2020-0 Yes UT n (Lipitor) 2-04 Health 40 MG 00:00: tablet 00 atorvastati 2020-0 Yes UT n (Lipitor) 2-04 Health 40 MG 00:00: tablet 00 atorvastati 2020-0 Yes UT n (Lipitor) 2-04 Health 40 MG 00:00: tablet 00 atorvastati 2020-0 Yes UT n (Lipitor) 2-04 Health 40 MG 00:00: tablet 00 atorvastati 2020-0 Yes UT n (Lipitor) 2-04 Health 40 MG 00:00: tablet 00 atorvastati 0 Yes UT n (Lipitor) 2-04 Health 40 MG 00:00: tablet 00 atorvastati 2020-0 Yes UT n (Lipitor) 2-04 Health 40 MG 00:00: tablet 00 atorvastati 2020-0 Yes UT n (Lipitor) 2-04 Health 40 MG 00:00: tablet 00 atorvastati 2020-0 Yes UT n (Lipitor) 2-04 Health 40 MG 00:00: tablet 00 benzonatate 2020-0 Yes [id number] 100mg Take 1 Univers (TESSALON 1-28 capsule by itjohn of [employer]oSnap) 100 00:00: mouth 3 Ameya as mg capsule 00 (three) Medica l times Branch daily. benzonatate 0 Yes [id number] 100mg Take 1 Univers (TESSALON 1-28 capsule by itjohn of YAN) 100 00:00: mouth 3 Ameya as mg capsule 00 (three) Medica l times Branch daily. benzonatate 0 Yes [id number] 100mg Take 1 Univers (TESSALON 1-28 capsule by itjohn of YAN) 100 00:00: mouth 3 Ameya as mg capsule 00 (three) Medica l times Branch daily. lisinopriL Yes Univers 5 mg tablet 1-20 ity of 00:00: [facility] lisinopriL 0 Yes Univers 5 mg tablet 1-20 ity of 00:00: [facility] lisinopriL 0 Yes Univers 5 mg tablet 1-20 ity of 00:00: [facility] ASHLEY PEN 2020-0 Yes Univers NEEDLE 32 1-06 ity of gauge x 00:00: " [facility] ASHLEY PEN 2020-0 Yes Univers NEEDLE 32 1-06 ity of gauge x 00:00: " [facility] ASHLEY PEN 2020-0 Yes Univers NEEDLE 32 1-06 ity of gauge x 00:00: " [facility] furosemide 2019-02 Yes Univers 40 mg 2-21 ity of tablet 00:00: [facility] furosemide 2019-02 Yes Univers 40 mg 2-21 ity of tablet 00:00: [facility] furosemide 2019-02 Yes Univers 40 mg 2-21 ity of tablet 00:00: [address] gabapentin 2020- Yes UT (Neurontin) 2-15 Health 300 MG 00:00: capsule 00 pantoprazol 2020- Yes UT e 2-15 Health (ProtoNix) 00:00: 40 MG EC 00 tablet gabapentin 2020- Yes UT (Neurontin) 2-15 Health 300 MG 00:00: capsule 00 pantoprazol 2019- Yes UT e 2-15 Health (ProtoNix) 00:00: 40 MG EC 00 tablet gabapentin 2020- Yes UT (Neurontin) 2-15 Health 300 MG 00:00: capsule 00 pantoprazol 2019- Yes UT e 2-15 Health (ProtoNix) 00:00: 40 MG EC 00 tablet gabapentin 2020- Yes UT (Neurontin) 2-15 Health 300 MG 00:00: capsule 00 pantoprazol 2019- Yes UT e 2-15 Health (ProtoNix) 00:00: 40 MG EC 00 tablet gabapentin 2020- Yes UT (Neurontin) 2-15 Health 300 MG 00:00: capsule 00 pantoprazol 2020- Yes UT e 2-15 Health (ProtoNix) 00:00: 40 MG EC 00 tablet gabapentin 2020- Yes UT (Neurontin) 2-15 Health 300 MG 00:00: capsule 00 pantoprazol 2020- Yes UT e 2-15 Health (ProtoNix) 00:00: 40 MG EC 00 tablet gabapentin 2020-1 Yes UT (Neurontin) 2-15 Health 300 MG 00:00: capsule 00 pantoprazol 2020- Yes UT e 2-15 Health (ProtoNix) 00:00: 40 MG EC 00 tablet gabapentin 2020- Yes UT (Neurontin) 2-15 Health 300 MG 00:00: capsule 00 pantoprazol 2020- Yes UT e 2-15 Health (ProtoNix) 00:00: 40 MG EC 00 tablet gabapentin 2020-1 Yes UT (Neurontin) 2-15 Health 300 MG 00:00: capsule 00 pantoprazol 2020- Yes UT e 2-15 Health (ProtoNix) 00:00: 40 MG EC 00 tablet carvediloL 2019- Yes Univers 12.5 mg 2-15 ity of tablet 00:00: [address] NOVOLOG 2019- Yes INJECT Univers FLEXPEN 2-15 UNDER THE ity of U-100 00:00: SKIN 14 [place] INSULIN 100 00 UNITS Medical unit/mL (3 BEFORE Branch mL) BREAKFAST, injection 16 UNITS BEFORE LUNCH, & 18 UNITS BEFORE DINNER TRESIBA 2019-02 Yes INJECT 90 Unive rs FLEXTOUCH 2-15 UNITS ity of U-200 200 00:00: [place]ANEO [place] unit/mL (3 00 USLY DAILY Med ical mL) InPn Branch metformin 2019-02 Yes 1000mg Take 1,000 Univers ER 500 mg 2-15 mg by ity of 24 hr 00:00: mouth 2 [place] tablet 00 (two) Medical times Branch daily. pantoprazol 2019-02 Yes Univer s e 40 mg EC 2-15 ity of tablet 00:00: Medical Branch gabapentin 2019-02 Yes Univers 300 mg 2-15 ity of capsule 00:00: Medical Branch carvediloL 2019-02 Yes Univers 12.5 mg 2-15 ity of tablet 00:00: Medical Branch NOVOLOG 2019-02 Yes INJECT Univers FLEXPEN 2-15 UNDER THE ity of U-100 00:00: SKIN 14 [place] INSULIN 100 00 UNITS Medical unit/mL (3 BEFORE Branch mL) BREAKFAST, injection 16 UNITS BEFORE LUNCH, & 18 UNITS BEFORE DINNER TRESIBA 2019-02 Yes INJECT 90 Unive rs FLEXTOUCH 2-15 UNITS ity of U-200 200 00:00: [place]ANEO [place] unit/mL (3 00 USLY DAILY Med ical mL) InPn Branch metformin 2019-02 Yes 1000mg Take 1,000 Univers ER 500 mg 2-15 mg by ity of 24 hr 00:00: mouth 2 [place] tablet 00 (two) Medical times Branch daily. pantoprazol 2019-02 Yes Univer s e 40 mg EC 2-15 ity of tablet 00:00: Medical Branch gabapentin 2019-02 Yes Univers 300 mg 2-15 ity of capsule 00:00: [facility] Branch carvediloL 2019-02 Yes Univers 12.5 mg 2-15 ity of tablet 00:00: Medical Branch NOVOLOG 2019-02 Yes INJECT Univers FLEXPEN 2-15 UNDER THE ity of U-100 00:00: SKIN 14 [place] INSULIN 100 00 UNITS Medical unit/mL (3 BEFORE Branch mL) BREAKFAST, injection 16 UNITS BEFORE LUNCH, & 18 UNITS BEFORE DINNER TRESIBA 2019-02 Yes INJECT 90 Unive rs FLEXTOUCH 2-15 UNITS ity of U-200 200 00:00: [place]O [place] unit/mL (3 00 USLY DAILY Med ical mL) InPn Branch metformin 2019-02 Yes 1000mg Take 1,000 Univers ER 500 mg 2-15 mg by ity of 24 hr 00:00: mouth 2 [place] tablet 00 (two) Medical times Branch daily. pantoprazol 2019-02 Yes Univer s e 40 mg EC 2-15 ity of tablet 00:00: Medical Branch gabapentin 2019-02 Yes Univers 300 mg 2-15 ity of capsule 00:00: [place] [facility] atorvastati 2019-02 Yes Univer s n 40 mg 1-24 ity of tablet 00:00: [place] [facility] atorvastati 2019-02 Yes Univer s n 40 mg 1-24 ity of tablet 00:00: [place] [facility] atorvastati 2019-02 Yes Univer s n 40 mg 1-24 ity of tablet 00:00: Medical Branch TRULICITY 2019-02 Yes INJECT Univer s 1.5 mg/0.5 1-10 UNDER THE ity of mL PnIj 00:00: SKIN 1.5MG [place] 00 ONCE A Medical WEEK Branch TRULICITY 2019-02 Yes INJECT Univer s 1.5 mg/0.5 1-10 UNDER THE ity of mL PnIj 00:00: SKIN 1.5MG [place] 00 ONCE A Medical WEEK Branch TRULICITY 2019-02 Yes INJECT Univer s 1.5 mg/0.5 1-10 UNDER THE ity of mL PnIj 00:00: SKIN 1.5MG [place] 00 ONCE A Medical WEEK Branch fenofibrate 2019-02 Yes Univer s 145 mg 1-09 ity of tablet 00:00: Medical Branch fenofibrate 2019-02 Yes Univer s 145 mg 1-09 ity of tablet 00:00: Medical Branch fenofibrate 2019-02 Yes Univer s 145 mg 1-09 ity of tablet 00:00: [place] [facility] ELIQUIS 5 2019-02 Yes Univers mg tablet 1-03 ity of 00:00: Medical Branch ELIQUIS 5 2019-02 Yes Univers mg tablet 1-03 ity of 00:00: [place] 00 Medical Branch ELIQUIS 5 2020-1 Yes Univers mg tablet 1-03 ity of 00:00: [place] [facility] Branch insulin 2020-0 Yes INJECT 70 UT degludec 1-31 UNITS Health (Tresiba 00:00: SUBCUTANEO FlexTouch) 00 USLY DAILY 200 UNIT/ML injection insulin 2020-0 Yes INJECT 70 UT degludec 1-31 UNITS Health (Tresiba 00:00: SUBCUTANEO FlexTouch) 00 USLY DAILY 200 UNIT/ML injection insulin 2020-0 Yes INJECT 70 UT degludec 1-31 UNITS Health (Tresiba 00:00: SUBCUTANEO FlexTouch) 00 USLY DAILY 200 UNIT/ML injection insulin 2020-0 Yes INJECT 70 UT degludec 1-31 UNITS Health (Tresiba 00:00: SUBCUTANEO FlexTouch) 00 USLY DAILY 200 UNIT/ML injection insulin 2020-0 Yes INJECT 70 UT degludec 1-31 UNITS Health (Tresiba 00:00: SUBCUTANEO FlexTouch) 00 USLY DAILY 200 UNIT/ML injection insulin 2020-0 Yes 45U 45 Units. UT degludec 1-31 Health (Tresiba 00:00: FlexTouch) 00 200 UNIT/ML injection insulin 2020-0 Yes INJECT 70 UT degludec 1-31 UNITS Health (Tresiba 00:00: SUBCUTANEO FlexTouch) 00 USLY DAILY 200 UNIT/ML injection insulin 2020-0 Yes INJECT 70 UT degludec 1-31 UNITS Health (Tresiba 00:00: SUBCUTANEO FlexTouch) 00 USLY DAILY 200 UNIT/ML injection insulin 2020-0 Yes INJECT 70 UT degludec 1-31 UNITS Health (Tresiba 00:00: SUBCUTANEO FlexTouch) 00 USLY DAILY 200 UNIT/ML injection insulin 2020-0 Yes INJECT 70 UT degludec 1-31 UNITS Health (Tresiba 00:00: SUBCUTANEO FlexTouch) 00 USLY DAILY 200 UNIT/ML injection Immunizations Ordered Immunization Filled Immunization Date Status Commen ts Source Name Name Pneumococcal Conjugate 2020-12-08 Completed [facility] PCV 13 00:00:00 Influenza, injectable, 2020-11-26 Completed [facility] quadrivalent, 00:00:00 preservative free Vital Signs Vital Name Observation Time Observation Value Comments Source Systolic blood 2020-12-22 16:43:00 120 mm[Hg] [facility] Diastolic blood 2020-12-22 16:43:00 78 mm[Hg] [facility] Heart rate 2020-12-22 16:43:00 103 /min [facility] height 2020-12-22 16:43:00 182.9 [facility] weight 2020-12-22 16:43:00 91[facility]808 [facility] BMI 2020-12-22 16:43:00 27.45 kg[facility]m2 [facility] Systolic blood 2020-09-01 16:24:00 126 mm[Hg] [facility] Diastolic blood 2020-09-01 16:24:00 78 mm[Hg] [facility] Heart rate 2020-09-01 16:24:00 91 /min [facility] Respiratory rate 2020-09-01 16:24:00 16 /min [facility] Body height 2020-09-01 16:24:00 182.9 [facility] weight 2020-09-01 16:24:00 97.977 [facility] BMI 2020-09-01 16:24:00 29.29 kg[facility]m2 [facility] Systolic blood 2020-04-18 22:30:00 128 mm[Hg] [facility] Diastolic blood 2020-04-18 22:30:00 75 mm[Hg] Unive rsity of [facility] Heart rate 2020-04-18 22:30:00 108 /min [facility] Body temperature 2020-04-18 22:30:00 37 [facility] 2020-04-18 22:30:00 20 /[facility] Body height 2020-04-18 22:30:00 182.9 cm [facility] Body weight 2020-04-18 22:30:00 99.791 kg [facility] BMI 2020-04-18 22:30:00 29.84 [facility] 2020-04-18 22:30:00 97 /min [facility] by [place] [facility] Respiratory rate 2020-04-18 22:30:00 20 /min [facility] Body height 2020-04-18 22:30:00 182.9 cm [facility] Body weight 2020-04-18 22:30:00 99.791 kg [facility] BMI 2020-04-18 22:30:00 29.84 kg/m2 [facility] Oxygen saturation in 2020-04-18 22:30:00 97 /min [facility] [place] [facility] Systolic blood 2020-04-18 22:30:00 128 mm[Hg] Univer sity of pressure [facility] Diastolic blood 2020-04-18 22:30:00 75 mm[Hg] Unive rsity of pressure [facility] Heart rate 2020-04-18 22:30:00 108 /min [facility] Body temperature 2020-04-18 22:30:00 37 Johanna [facility] Systolic blood 2020-03-06 19:07:00 132 mm[Hg] Univer sity of [facility] Diastolic blood 2020-03-06 19:07:00 81 mm[Hg] Unive rsity of [facility] Heart rate 2020-03-06 19:07:00 78 /min [facility] Body temperature 2020-03-06 19:07:00 36.5 Johanna [facility] Body height 2020-03-06 19:07:00 182.9 cm [facility] Body weight 2020-03-06 19:07:00 97.523 kg [facility] BMI 2020-03-06 19:07:00 29.16 kg/m2 [facility] Oxygen saturation in 2020-03-06 19:07:00 96 /min [facility] [place] [facility] Systolic blood 2020-03-06 19:07:00 132 mm[Hg] Univer [facility]ity [facility] Diastolic blood 2020-03-06 19:07:00 81 mm[Hg] Unive rsity of [facility] Heart rate 2020-03-06 19:07:00 78 /min [facility] Body temperature 2020-03-06 19:07:00 36.5 Johanna [facility] Body height 2020-03-06 19:07:00 182.9 cm [facility] Body weight 2020-03-06 19:07:00 97.523 kg [facility] BMI 2020-03-06 19:07:00 29.16 kg/m2 [facility] Oxygen saturation in 2020-03-06 19:07:00 96 /min [facility] blood by [facility] Pulse oximetry Branch Procedures Procedure Date / Time Performing Clinician Source Performed POCT GLYCOSYLATED 2020-12-22 17:02:00 [facility]SE 2020-12-22 16:58:00 [facility] 2020-09-01 16:25:00 [facility] POCT GLYCOSYLATED 2020-09-01 [facility]:25[facility] (HGB A1C) POCT FLU A AND B 2020-03-06 19:33:00 Estela Ayala [facility]) [facility] POCT GRP A STREP 2020-03-06 19:27:00 Estela Ayala [facility]) [facility] Encounters Start End Encounter Admission Attending Care Care Encounter Source Date/Time Date/Time Type Type Clinicians Facility Department ID 2020-12-22 Outpatient LUNAFORMERLY [facility] [id number] [place] 11:40:54 [facility] 2020-12-22 2020-12-22 Office Lynne [facility] 6410 [id number] [id number] NE 10:30:57 11:40:58 Visit Reina HAMILTON [id number] [facility] [id number] 2020-11-24 2020-11-24 Orders Luann Nelson [facility] 6410 1.2.840.114 [id number] NE 00:00:00 00:00:[address] [id number] Health [id number] 2020-11-24 2020-11-24 Orders Luann Nelson [facility] 6410 1.2.840.114 [id number] [place] 00:00:00 00:00:[address] [id number] Health [id number] 2020-10-17 2020-10-17 Refill Udom, [facility] 1.2.840.114 [id number] UT 00:00:00 00:00:00 Reina BELLAIRE [id number] [facility] MEDICAL [id number] BUILDING [id number] 2020-10-14 2020-10-14 Telephone Bárbara Zaidi [facility] 6410 1.2.840 .114 [id number] [place] 00:00:00 00:00:[address] [id number] Health [id number] 2020-10-01 2020-10-01 Refill Udom, [facility] 6410 1.2.840.114 [id number] [place] 00:00:00 00:00:[address] [id number] Health [place] 9.2.7.2.686 [id number] 2020-09-01 2020-09-01 Office Patricia, [facility] 6410 [id number] UT 11:06:36 12:11:[address] [id number] Health [id number] [id number] 2020-08-25 2020-08-25 Refill Okjorisa, [facility]TP 1.2.840.114 [id number] [place] 00:00:00 00:00:00 Reina JDAIRE [id number] Health MEDICAL 9.2.7.2.686 BUILDING [id number] 2020-07-25 2020-07-25 JIMY Patel 1.2.840.114 [id number] NE 00:00:00 00:00:00 Reina ALDEN [id number] [facility] 9.2.7.2.686 [facility] [id number] 2020-04-18 2020-04-18 [facility] [id number] Univers 19:45:00 19:45:00 JULIANO kylie o f [facility] 2020-04-18 2020-04-18 Nurse Nurse, [facility] 1.2 .840.114 [id number] Univers 18:25:50 18:40:50 Visit Candelaria Vanessaly [facility] [id number] ity of [place] 4.2.7.2.686 Ameya as Professio [id number] [address] Office [address] One 2020-04-18 2020-04-18 Urgent Juliano Vanessa [facility] 1.2.840 .114 [id number] Univers 16:20:00 16:40:00 Care Vernell Galindo [facility] [id number] [facility]y [place] [id number] Ameya as Professio [id number] [address] Office [address] One 2020-04-18 2020-04-18 Outpatient [facility] [id number] Univers 16:20:00 16:20:00 [id number] ity of [facility] 2020-04-18 2020-04-18 Outpatient R [facility] [id number] Univers 16:20:00 16:20:00 ity [facility] 2020-03-06 2020-03-06 Urgent Provider, [facility] [id number] 12:59:17 13:19:17 Care [facility] [id number] Care [place] [id number] Professio [id number] [place] [address] Office [address] One 2020-03-06 2020-03-06 Urgent Provider, [facility] 1.2.840.114 [id number] Univers 12:59:17 13:19:17 Care [facility], [facility] [id number] Estela Silvestre [id number] [facility] [phone] Vt dical [address] Office [address] One 2020-03-06 2020-03-06 Outpatient R OSMAR [facility] [id number] Univers 13:00:00 13:00:00 ESTELA espinal [facility] Results Test Description Test Time Test Comments Results Result Comments Source POCT glycosylated hemoglobin (Hb A1C) docked device 17:02:00 Test Item Value Reference Range Interpretation Comme nts Hemoglobin A1C (test code = 4548-4) [facility] manually [id number] 16:58:00 Test Item Value Reference Range Interpretation Comments Glucose Blood, POC (test code = 118 mg/dL 70-884 [id number]) [facility] glucose manually [id number] 16:25:00 Test Item Value Reference Range Interpretation Comments Glucose Blood, POC (test code = 100 mg/dL 70-091 [id number]) [facility] glycosylated hemoglobin (Hb A1C) docked [id number] 16:25:00 Test Item Value Reference Range Interpretation Comments Hemoglobin A1C (test code = 4548-4) [facility]2020-03-06 19:33:00 Test Item Value Reference Range Interpretation Comments POCT INFLUENZA A (test code = NEG Negative - Negative 3840) POCT INFLUENZA B (test code = NEG Negative - Negative 3841) Lab Interpretation (test code = Normal 87004-8) [facility])2020-03-06 19:27:00 Test Item Value Reference Range Interpretation Comments POCT GP A STREP (test code = neg Negative - Negative 23631-7) Lab Interpretation (test code = Normal 39322-1) [facility]
[2021-01-29] MEDS ORDERED: D50W 50 ML IV ONE (09:47)
[2021-01-29 10:37] LABS: Absolute Lymphocytes (CBC) 0.7 K/uL (0.7-4.9); Basophils % 0.1 % (0-1.3); Hematocrit 42.8 % (39.6-49.0); Lymphocytes % 7.2 % (15.3-44.8); MPV 9.3 fL (7.6-11.3); RBC Red Blood Cell Count 5.14 M/uL (4.33-5.43)
[2021-01-29 10:43] LABS: Protime INR 3.57
[2021-01-29] MEDS ORDERED: FUROSEMIDE 20 MG/ 2ML VIAL ONE (10:53)
[2021-01-29 10:55] LABS: Anisocytosis 1+; Blood Morphology Comment NOTED (NOT SEEN); Platelet Estimate ADEQ
[2021-01-29 11:10] LABS: Albumin 2.8 g/dL (3.4-5.0); Alkaline Phosphatase 109 U/L (45-117); Amylase 94 U/L (25-115); BUN Blood Urea Nitrogen 49 mg/dL (7-18); Bicarbonate 23 mmol/L (21-32); Bilirubin Direct 2.6 mg/dL (0-0.2); Bilirubin Total 3.4 mg/dL (0.2-1.0); CKMB Creatine Kinase MB 2.6 ng/mL (1.0-3.6); Creatine Phosphokinase 56 U/L (39-308); Glucose Level 180 mg/dL (74-106); Lipase 409 U/L (73-393); Potassium 3.8 mmol/L (3.5-5.1); Sodium Level 137 mmol/L (136-145); Troponin (Emerg Dept Use Only) < 0.02 ng/mL (0.0-0.045)
--- NOTE | 2021-01-29 11:10 | RAD REPORT ---
EXAM DESCRIPTION: RAD - Chest Single View - 01/29/2021 11:04 am CLINICAL HISTORY: Weakness COMPARISON: Chest Single View dated 04/18/2020; Chest Pa And Lat (2 Views) dated 07/04/2018; CHEST PA AND LAT 2 VIEW dated 05/17/2014; CHEST PA AND LAT 2 VIEW dated 04/01/2014 FINDINGS: Lines: None. Lungs: Diffuse prominence of the pulmonary interstitium, left greater than right. Pleural: No significant pleural effusions or pneumothorax. Cardiac: Cardiomegaly. Bones: No acute fractures. Sternotomy. Other: IMPRESSION: Widespread pulmonary opacities likely representing pulmonary edema.
[2021-01-29 11:15] LABS: ALT/SGPT 752 U/L (12-78); AST/SGOT 693 U/L (15-37)
--- NOTE | 2021-01-29 12:38 | RAD REPORT ---
EXAM DESCRIPTION: US - Abdomen Exam Limited - 01/29/2021 12:25 pm CLINICAL HISTORY: ABD PAIN COMPARISON: MRI-ABDOMEN W/WO CONTRAST dated 04/24/2015 FINDINGS: The gallbladder wall is thickened. Sonographic Nunn sign is positive. Small stones versu s sludge noted. The common bile duct is upper limits of normal measuring 6 millimeters. IMPRESSION: Gallbladder wall thickening, positive sonographic Nunn's sign, and sludge/small stones in the gallbladder could represent acute cholecystitis in the appropriate clinical setting.
[2021-01-29 12:57] LABS: Urine Bacteria <20 /HPF (NONE SEEN); Urine RBC NONE SEEN /HPF (NONE SEEN)
--- NOTE | 2021-01-29 13:24 | RAD REPORT ---
EXAM DESCRIPTION: CT - Chest Abd Pelvis Wo Con - 01/29/2021 12:57 pm CLINICAL HISTORY: Chest and abdominal pain. Weakness. Cough COMPARISON: Abdominal ultrasound January 29, 2021 TECHNIQUE: Computed axial tomography of the chest, abdomen and pelvis was obtained. Oral contrast wa s given. IV contrast was not requested. All CT scans are performed using dose optimization technique as appropriate and may include automated exposure control or mA/KV adjustment according to patient size. FINDINGS: The evaluation of mediastinum, juli, vessels and solid organs is limited secondary to the lack of IV contrast administration Clear lungs. Cardiomegaly. Coronary arterial calcifications No mediastinal or hilar lymphadenopathy is seen. Small to moderate right and small left pleural effusions. A pericardial effusion is not seen. The liver, spleen, pancreas, adrenals and kidneys appear grossly normal There is no evidence of diverticulitis. Normal appendix Probable gallstones. IMPRESSION: Small to moderate right and small left pleural effusions Probable cholelithiasis
[2021-01-29] MEDS ORDERED: NA CHLORIDE 0.9% 1,000 ML ONE (15:54)
--- NOTE | 2021-01-29 17:12 | EDPHYS ---
Physician Documentation [facility] Name: Enma Ribeiro Age: 60 yrs Sex: Male : 1960 Arrival Date: 01/29/2021 Time: 09:20 Bed 13 Private MD: Landon Lentz ED Physician Dwight Capone HPI: 01/29 10:25 This 60 yrs old Male presents to ER via Wheelchair with complaints of Cough, Weakness, kdr Feet Swelling. 10:25 Patient presents with generalized weakness and lethargy that has been developing over kdr the last 1 to 2 weeks. states that she went out of town for a few days and when she returned her has been more or less bedbound and sleeping most of the time. He denies fever and has only minor cough that is nonproductive. His fingerstick was noted to be 50.. 10:26 As noted elsewhere, the patient's had general weakness and lethargy for the past 7 to kdr 10 days. was out of town for a few days when she returned his condition had worsened. Over the past few days since she has been home he continues to be sleeping most of the day.. Severity of symptoms: At their worst the symptoms were moderate incapacitating in the emergency department the symptoms are unchanged. The patient has not experienced similar symptoms in the past. The patient has not recently seen a physician. Historical: - Allergies: 09:40 Keflex; jl7 - Home Meds: 09:40 Novolog Sub-Q [Active]; Tresiba FlexTouch U-100 subcutaneous [Active]; Trulicity jl7 subcutaneous [Active]; Eliquis 5 mg oral tab 1 tab 2 times per day [Active]; carvedilol 12.5 mg oral tab 1 tab 2 times per day [Active]; atorvastatin 40 mg oral tab 1 tab once daily [Active]; fenofibrate oral [Active]; furosemide Oral [Active]; - PMHx: 09:40 Aphasia; CVA; Diabetes - IDDM; Hypertension; Atrial fibrillation; jl7 - Immunization history:: Client reports receiving the 2nd dose of the Covid vaccine. - Social history:: Smoking status: Patient denies any tobacco usage or history of. ROS: 10:26 Constitutional: Negative for fever, chills, and weight loss, Eyes: Negative for injury, kdr pain, redness, and discharge, Neck: Negative for injury, pain, and swelling, Respiratory: Negative for shortness of breath, cough, wheezing, and pleuritic chest pain, Abdomen/GI: Negative for abdominal pain, nausea, vomiting, diarrhea, and constipation, Back: Negative for injury and pain, : Negative for injury, bleeding, discharge, and swelling, Psych: Negative for depression, anxiety, suicide ideation, homicidal ideation, and hallucinations, Allergy/Immunology: Negative for hives, rash, and allergies, Endocrine: Negative for neck swelling, polydipsia, polyuria, polyphagia, and marked weight changes. 10:26 Cardiovascular: Positive for edema, Negative for chest pain, orthopnea, palpitations, paroxysmal nocturnal dyspnea. 10:26 Respiratory: Positive for dyspnea on exertion, Negative for hemoptysis, orthopnea. 10:26 MS/extremity: Positive for swelling, tenderness, Bilateral 4+ pitting edema up to his upper thigh. Exam: 10:26 Constitutional: This is a well developed, well nourished patient who is awake, kdr somewhat alert, and in no acute distress. Head/Face: Normocephalic, atraumatic. Eyes: Pupils equal round and reactive to light, extra-ocular motions intact. Lids and lashes normal. Conjunctiva and sclera are non-icteric and not injected. Cornea within normal limits. Periorbital areas with no swelling, redness, or edema. Neck: Trachea midline, no thyromegaly or masses palpated, and no cervical lymphadenopathy. Supple, full range of motion without nuchal rigidity, or vertebral point tenderness. No Meningismus. Chest/axilla: Normal chest wall appearance and motion. Nontender with no deformity. No lesions are appreciated. Respiratory: Lungs have equal breath sounds bilaterally, clear to auscultation and percussion. No rales, rhonchi or wheezes noted. No increased work of breathing, no retractions or nasal flaring. Abdomen/GI: Soft, non-tender, with normal bowel sounds. No distension or tympany. No guarding or rebound. No evidence of tenderness throughout. Back: No spinal tenderness. No costovertebral tenderness. Full range of motion. 10:26 Cardiovascular: Heart sounds: murmur, systolic, grade 2 over 6, Edema: 4+ edema to level of left lower thigh, left knee, left midcalf, left ankle, left foot, left toes, right lower thigh, right knee, right midcalf, right ankle, right foot and right toes, pedal edema, that is moderate, ankle edema, that is marked. 12:38 ECG was reviewed by the Attending Physician. kdr Vital Signs: 09:37 BP 134 / 89; Pulse 99; Resp 19; Temp 97.2; Pulse Ox 99% on R/A; Weight 95.25 kg; Height jl7 6 ft. (182.88 cm); 10:15 BP 127 / 89; Pulse 98; Resp 22; Pulse Ox 99% ; eo2 10:30 BP 132 / 88; Pulse 98; Resp 19; Pulse Ox 99% ; eo2 11:00 BP 137 / 93; Pulse 95; Resp 22; Pulse Ox 100% ; Pain 0/10; eo2 12:00 BP 123 / 89; Pulse 99; Resp 21; Pulse Ox 100% ; Pain 0/10; eo2 13:00 BP 136 / 97; Pulse 97; Resp 21; Pulse Ox 100% ; Pain 0/10; eo2 13:30 BP 114 / 84; Pulse 98; Resp 21; Pulse Ox 100% ; Pain 0/10; eo2 14:00 BP 121 / 84; Pulse 97; Resp 22; Weight 45.36 kg; eo2 14:30 BP 124 / 93; Pulse 97; Resp 24; Temp 97.1; Pulse Ox 100% ; Pain 0/10; eo2 15:00 BP 135 / 97; Pulse 98; Resp 24; Pulse Ox 99% ; Pain 0/10; eo2 16:00 BP 113 / 99; Pulse 104; Resp 22; Pulse Ox 97% ; Pain 0/10; eo2 17:00 BP 124 / 86; Pulse 100; Resp 20; Pulse Ox 97% ; Pain 0/10; eo2 17:15 BP 119 / 92; Pulse 101; Resp 19; Pulse Ox 96% ; Pain 0/10; eo2 14:00 Body Mass Index 13.56 (45.36 kg, 182.88 cm) eo2 MDM: 10:26 Data reviewed: vital signs, nurses notes, lab test result(s), EKG, radiologic studies. kdr Counseling: I had a detailed discussion with the patient and/or guardian regarding: the historical points, exam findings, and any diagnostic results supporting the discharge/admit diagnosis, lab results, radiology results. 17:11 Patient medically screened. kdr 17:11 ED course: Sepsis bolus was not given due to concurrent CHF exacerbation. kdr 01/29 09:54 Order name: Glucose, Ancillary Testing; Complete Time: 10:53 EDMS 01/29 10:21 Order name: Amylase, Serum; Complete Time: 12:30 kdr 01/29 10:21 Order name: Basic Metabolic Panel; Complete Time: 12:30 kdr 01/29 10:21 Order name: Blood Culture Adult (2) kdr 01/29 10:21 Order name: CBC with Diff; Complete Time: 12:30 kdr 01/29 10:21 Order name: CPK; Complete Time: 12:30 kdr 01/29 10:21 Order name: Ckmb; Complete Time: 12:30 kdr 01/29 10:21 Order name: LFT's; Complete Time: 12:30 kdr 01/29 10:21 Order name: Lactate; Complete Time: 12:30 kdr 01/29 10:21 Order name: Lipase; Complete Time: 12:30 kdr 01/29 10:21 Order name: Procalcitonin; Complete Time: 12:30 kdr 01/29 10:21 Order name: Protime (+inr); Complete Time: 10:53 kdr 01/29 10:21 Order name: Ptt, Activated; Complete Time: 10:53 kdr 01/29 10:21 Order name: Troponin (emerg Dept Use Only); Complete Time: 12:30 kdr 01/29 10:21 Order name: Urine Microscopic Only; Complete Time: 14:24 kdr 01/29 10:21 Order name: Chest Single View XRAY; Complete Time: 12:30 kdr 01/29 10:21 Order name: Accucheck; Complete Time: 10:27 kdr 01/29 10:34 Order name: Glucose, Ancillary Testing; Complete Time: 10:53 EDMS 01/29 10:41 Order name: SARS-COV-2 RT PCR; Complete Time: 12:30 EDMS 01/29 10:54 Order name: Manual Differential; Complete Time: 12:30 EDMS 01/29 11:43 Order name: US Abdomen Limited; Complete Time: 14:24 kdr 01/29 12:34 Order name: CT Chest Abdomen Pelvis W/O Contrast; Complete Time: 14:24 kdr 01/29 13:45 Order name: Glucose, Ancillary Testing; Complete Time: 14:24 EDMS 01/29 14:44 Order name: Lactate Sepsis 2 HR Follow-up; Complete Time: 14:54 EDMS 01/29 15:52 Order name: BNP; Complete Time: 16:19 eo2 01/29 10:21 Order name: Cardiac monitoring; Complete Time: 10:27 kdr 01/29 10:21 Order name: EKG - Nurse/Tech; Complete Time: 12:30 kdr 01/29 10:21 Order name: IV Saline Lock - Large Bore; Complete Time: 10:47 kdr 01/29 10:21 Order name: Labs collected and sent; Complete Time: 10:47 kdr 01/29 10:21 Order name: O2 Per Protocol; Complete Time: 10:47 kdr 01/29 10:21 Order name: O2 Sat Monitoring; Complete Time: 10:47 kdr 01/29 10:21 Order name: Urine Dipstick-Ancillary (obtain specimen); Complete Time: 13:10 kdr 01/29 13:26 Order name: Glucose Level; Complete Time: 14:33 eo2 01/29 17:32 Order name: Glucose Level; Complete Time: 17:39 eo2 EC:38 Rate is 101 beats/min. Rhythm is irregularly irregular, A fib with No ectopy. QRS [place] kdr is Normal. MS interval is normal. QRS interval is normal. QT interval is normal. Clinical impression: Atrial Fibrillation. Administered Medications: 10:00 Drug: D50W 50 ml Route: IVP; Site: right hand; eo2 10:28 Follow up: Response: No adverse reaction eo2 10:57 Drug: Lasix (furosemide) 60 mg Route: IVP; Site: right wrist; eo2 11:29 Follow up: Response: No adverse reaction eo2 15:58 Drug: NS 0.9% 500 ml {Note: per Dr. Capone, admin 500ml NS at this time then start eo2 maintenance fluids.} Route: IV; Rate: 1 bolus; Site: right wrist; 16:53 Follow up: IV Status: Completed infusion; IV Intake: 500ml eo2 16:53 Drug: NS 0.9% 1000 ml Route: IV; Rate: 125 ml/hr; Site: right wrist; eo2 17:44 Follow up: IV Status: Infusion continued upon transfer eo2 Point of Care Testing: Blood Glucose: 09:40 Blood Glucose: 50 mg/dL; jl7 Ranges: Critical Glucose Levels:Adult <50 mg/dl or >400 mg/dl <40 mg/dl or >180 mg/dl Disposition Summary: 01/29/21 17:11 Transfer Ordered Transfer Location: [facility] kdr Reason: Higher level of care kdr Condition: Fair kdr Problem: new kdr Symptoms: have improved kdr Accepting Physician: Radha Carmona(01/29/21 17:45) eo2 Diagnosis - Acute cholecystitis kdr - Other cholelithiasis with obstruction kdr - Other specified sepsis kdr Forms: - Medication Reconciliation Form kdr - SBAR form kdr Signatures: Dispatcher [employer] EDMS Dwight Capone MD MD kdr Oneyda Cruz RN RN jl7 Courtney Jiménez RN RN eo2 Corrections: (The following items were deleted from the chart) 10:40 10:22 CORONAVIRUS+MR.LAB.BRZ ordered. EDWA EDWA 17:45 17:11 Radha Carmona kdr eo2
--- NOTE | 2021-01-29 17:12 | ER ---
Nurse's Notes [facility] Name: Enma Ribeiro Age: 60 yrs Sex: Male : 1960 Arrival Date: 01/29/2021 Time: 09:20 Bed 13 Private MD: Landon Lentz Diagnosis: Acute cholecystitis;Other cholelithiasis with obstruction;Other specified sepsis Presentation: 01/29 09:37 Chief complaint: Spouse and/or significant other states: Cough, weak and lethargic x jl7 1-2 weeks. Coronavirus screen: Vaccine status: Patient reports receiving the 2nd dose of the covid vaccine. cough unrelated to allergies, Client presents with at least one sign or symptom that may indicate coronavirus-19. Standard/surgical mask placed on the client. Provider contacted for isolation considerations. Ebola Screen: No symptoms or risks identified at this time. Initial Sepsis Screen: Does the patient meet any 2 criteria? No. Patient's initial sepsis screen is negative. Does the patient have a suspected source of infection? No. Patient's initial sepsis screen is negative. Risk Assessment: Do you want to hurt yourself or someone else? Patient reports no desire to harm self or others. Onset of symptoms is unknown. 09:37 Method Of Arrival: Wheelchair jl7 09:37 Acuity: SIERRA 3 jl7 Triage Assessment: 09:43 General: Appears in no apparent distress. uncomfortable, Behavior is calm, cooperative, jl7 appropriate for age. Pain: Denies pain. Neuro: Level of Consciousness is awake, alert, obeys commands, Oriented to person, place, time, situation. Cardiovascular: Patient's skin is warm and dry. Respiratory: Airway is patent Respiratory effort is even, unlabored, Respiratory pattern is regular, symmetrical. Derm: Skin is pink, warm \T\ dry. Historical: - Allergies: 09:40 Keflex; jl7 - Home Meds: 09:40 Novolog Sub-Q [Active]; Tresiba FlexTouch U-100 subcutaneous [Active]; Trulicity jl7 subcutaneous [Active]; Eliquis 5 mg oral tab 1 tab 2 times per day [Active]; carvedilol 12.5 mg oral tab 1 tab 2 times per day [Active]; atorvastatin 40 mg oral tab 1 tab once daily [Active]; fenofibrate oral [Active]; furosemide Oral [Active]; - PMHx: 09:40 Aphasia; CVA; Diabetes - IDDM; Hypertension; Atrial fibrillation; jl7 - Immunization history:: Client reports receiving the 2nd dose of the Covid vaccine. - Social history:: Smoking status: Patient denies any tobacco usage or history of. Screenin:36 Abuse screen: Denies threats or abuse. Nutritional screening: No deficits noted. eo2 Tuberculosis screening: No symptoms or risk factors identified. Fall Risk No fall in past 12 months (0 pts). Mental Status- Oriented to own ability (0 pts). Assessment: 10:36 General: Appears in no apparent distress. comfortable, Behavior is calm, cooperative. eo2 Neuro: Level of Consciousness is awake, alert, Oriented to person, place, time, situation, Reports weakness in generalized, also hx of CVA, moves all extremities, residual right sided weakness Denies dizziness, headache. Cardiovascular: Reports shortness of breath, Denies chest pain, Respiratory: Reports shortness of breath on exertion Airway is patent clear with mild crackles noted b/l. GI: Patient currently denies diarrhea, nausea, vomiting, Parent/caregiver reports the patient having decreased appetite, that pt hasn't been eating or drinking as he usually would. Derm: Wound noted open wound noted to right mya. Musculoskeletal: Swelling present in b/l LE with+3 pitting edema. 10:36 EENT: Reports cough x 1 week. eo2 13:27 Reassessment: Per Dr. Capone, repeat BG level, pt may have juice. eo2 14:00 Reassessment: Pt provided 8oz juice and iced water as requested per . Tolerated in eo2 NAD. 14:44 Reassessment: Iv lines flushing with sluggish blood return, lab came to draw 2nd eo2 lactate due. 15:52 Reassessment: Per Dr. Capone, admin 500ml NS then start maintenance, add on BNP blood eo2 work. 16:21 Reassessment: Point of Contact () [phone]. Vital Signs: 09:37 BP 134 / 89; Pulse 99; Resp 19; Temp 97.2; Pulse Ox 99% on R/A; Weight 95.25 kg; Height jl7 6 ft. (182.88 cm); 10:15 BP 127 / 89; Pulse 98; Resp 22; Pulse Ox 99% ; eo2 10:30 BP 132 / 88; Pulse 98; Resp 19; Pulse Ox 99% ; eo2 11:00 BP 137 / 93; Pulse 95; Resp 22; Pulse Ox 100% ; Pain 0/10; eo2 12:00 BP 123 / 89; Pulse 99; Resp 21; Pulse Ox 100% ; Pain 0/10; eo2 13:00 BP 136 / 97; Pulse 97; Resp 21; Pulse Ox 100% ; Pain 0/10; eo2 13:30 BP 114 / 84; Pulse 98; Resp 21; Pulse Ox 100% ; Pain 0/10; eo2 14:00 BP 121 / 84; Pulse 97; Resp 22; Weight 45.36 kg; eo2 14:30 BP 124 / 93; Pulse 97; Resp 24; Temp 97.1; Pulse Ox 100% ; Pain 0/10; eo2 15:00 BP 135 / 97; Pulse 98; Resp 24; Pulse Ox 99% ; Pain 0/10; eo2 16:00 BP 113 / 99; Pulse 104; Resp 22; Pulse Ox 97% ; Pain 0/10; eo2 17:00 BP 124 / 86; Pulse 100; Resp 20; Pulse Ox 97% ; Pain 0/10; eo2 17:15 BP 119 / 92; Pulse 101; Resp 19; Pulse Ox 96% ; Pain 0/10; eo2 14:00 Body Mass Index 13.56 (45.36 kg, 182.88 cm) eo2 Vitals: 16:00 Cardiac Rhythm Assessment Atrial fibrillation. eo2 ED Course: 09:20 Patient arrived in ED. mr 09:21 Landon Lentz MD is Private Physician. mr 09:40 Triage completed. jl7 09:43 Arm band placed on right wrist. jl7 09:47 Dwight Capone MD is Attending Physician. kdr 09:51 Courtney Jiménez RN is Primary Nurse. eo2 10:00 Missed attempt(s): 20 gauge in left forearm. Bleeding controlled, band aid applied, jl7 catheter tip intact. 10:00 Inserted saline lock: 22 gauge in right hand, using aseptic technique. eo2 10:05 Inserted saline lock: 22 gauge in left forearm, using aseptic technique. jl7 10:20 Awaiting lab results. eo2 10:20 Inserted saline lock: 20 gauge in right wrist, using aseptic technique. Blood collected.eo2 10:36 Patient has correct armband on for positive identification. Placed in gown. Bed in low eo2 position. Call light in reach. Adult w/ patient. senior manufacturing engineer on. Pulse ox on. NIBP on. Door closed. Noise minimized. Warm blanket given. 10:36 No provider procedures requiring assistance completed. eo2 10:48 First set of blood cultures drawn Second set of blood cultures drawn by me. kj1 10:53 Blood Sugar was 119 \T\1015, RN notified. kv1 11:04 Chest Single View XRAY In Process Unspecified. EDMS 12:21 Urine collected: clean catch specimen, dexter colored. kv1 12:25 US Abdomen Limited In Process Unspecified. EDMS 12:57 CT Chest Abdomen Pelvis W/O Contrast In Process Unspecified. EDMS 13:00 Warm blanket given. eo2 15:00 initiated a transfer with Arlette from the [facility]. eb 15:15 patient request to transfer to [facility] or the [place] system.. eb 15:23 initiated a transfer with Dustin from the [facility] transfer center. eb 15:27 per Dustin from the [facility] Transfer Center/ they are denying the patient in transfer eb due to being at capacity. 15:38 initiated a transfer with Fany from the [facility] Transfer [place]. eb 15:49 per Fany from the [facility] Transfer [place] they will have to deny the patient eb in transfer for being at capacity. 15:51 reinitiated a transfer with Minda from the [facility]. eb 16:43 administrative approval given by Arlette Li Rn/ patient has been accepted to [facility] 15 tower bed 1515/ Dr. Jodee Carmona has accepted the patient in transfer/ report to be called to [phone]. 17:20 Report given to Miguel GALVAN. eo2 17:40 Patient transferred, IV remains in place. intact, Continued NS\T\125ml/hr. eo2 Administered Medications: 10:00 Drug: D50W 50 ml Route: IVP; Site: right hand; eo2 10:28 Follow up: Response: No adverse reaction eo2 10:57 Drug: Lasix (furosemide) 60 mg Route: IVP; Site: right wrist; eo2 11:29 Follow up: Response: No adverse reaction eo2 15:58 Drug: NS 0.9% 500 ml {Note: per Dr. Capone, admin 500ml NS at this time then start eo2 maintenance fluids.} Route: IV; Rate: 1 bolus; Site: right wrist; 16:53 Follow up: IV Status: Completed infusion; IV Intake: 500ml eo2 16:53 Drug: NS 0.9% 1000 ml Route: IV; Rate: 125 ml/hr; Site: right wrist; eo2 17:44 Follow up: IV Status: Infusion continued upon transfer eo2 Point of Care Testing: Blood Glucose: 09:40 Blood Glucose: 50 mg/dL; jl7 Ranges: Intake: 16:53 IV: 500ml; Total: 500ml. eo2 Output: 14:30 Urine: 425ml (Voided); Total: 425ml. eo2 Outcome: 17:11 ER care complete, transfer ordered by . kdr 17:40 Transferred by ground EMS to [facility]. eo2 17:40 Condition: stable 17:40 Instructed on the need for transfer, Demonstrated understanding of instructions. 17:45 Patient left the ED. eo2 Signatures: Dispatcher [employer] EDMS Dwight Capone MD MD kdr Rivera, Jazmine mr Amalia Harding, RN RN Oneyda Cohen RN RN jl7 Mara Greene Kandis kj1 Jefferson Young Eunice, RN RN eo2 Corrections: (The following items were deleted from the chart) 13:01 11:30 Response: No adverse reaction eo2 eo2 15:49 15:38 initiated a transfer with Dustin from the [facility] transfer center. eb eb
[2021-01-29 18:06] VITALS: TEMP 97.1
[2021-01-29 18:12] VITALS: BP 119/92; O2SAT 96
[2021-02-03 13:36] LABS: Urine Blood Negative (Negative); Urine Glucose Trace (Negative); Urine Protein Trace (Negative); Urine Specific Gravity 1.025 (1.005-1.030)
== END 2021-01-29 17:45 | disposition short-term general hospital (02) ==
LOC: ER 09:18
DX: K80.00 Calculus of gallbladder with acute cholecystitis without obstruction (principal); A41.89 Other specified sepsis; I48.91 Unspecified atrial fibrillation; I10 Essential (primary) hypertension; E11.9 Type 2 diabetes mellitus without complications; Z79.01 Long term (current) use of anticoagulants; Z79.4 Long term (current) use of insulin; Z88.8 Allergy status to other drugs, medicaments and biological substances; Z20.822 Contact with and (suspected) exposure to COVID-19
CPT/HCPCS: 93005; 87040 ×2; 85025; 80048; 36415; 82150; 82550; 87205 ×2; 85610; 82947 ×4; 80076; 83605 ×2; 85730; 81015; 84484; 82553; 83690; 84145; 83880; 71250; 74176; 71045; 76705; 99285; U0003; J1940; J7030; 81003

== ENCOUNTER 2021-08-24 07:30 | Day surgery (SDC) | payer OTHER ==
--- NOTE | 2021-08-20 13:07 | EKG ---
Test Date: 2021-08-20 Test Time: 12:56:44 Railroad Crane Operator: GILMA MEASUREMENT RESULTS: Intervals: Rate: 53 IA: 196 QRSD: 108 QT: 568 QTc: 532 Lorida: P: 82 IA: 196 QRS: 76 T: 103 INTERPRETIVE STATEMENTS: Sinus bradycardia ST abnormality, possible digitalis effect Prolonged QT Abnormal ECG Compared to ECG 01/29/2021 11:36:14 Prolonged QT interval now present Atrial fibrillation no longer present Right-axis deviation no longer present Intraventricular conduction delay no longer present ST (T wave) deviation still present Electronically Signed On 08-20-21 13:05:43 CDT by Natanael Valiente
[2021-08-20 13:28] LABS: Potassium 4.4 mmol/L (3.5-5.1)
--- NOTE | 2021-08-20 13:33 | RAD REPORT ---
EXAM DESCRIPTION: RAD - Chest Pa And Lat (2 Views) - 08/20/2021 1:22 pm CLINICAL HISTORY: Pre op pending abdominal angiogram Chest pain. COMPARISON: Chest Single View dated 01/29/2021; Chest Single View dated 04/18/2020; Chest Pa And Lat (2 Views) dated 07/04/2018; CHEST PA AND LAT 2 VIEW dated 05/17/2014 FINDINGS: Minimal interstitial pulmonary edema. The heart is moderately enlarged with sternotomy wir es present. Small hiatal hernia. IMPRESSION: Mild CHF.
[2021-08-20 13:37] LABS: SARS-CoV-2 Antigen Rapid Res Negative (Negative)
[2021-08-20 13:43] LABS: Hematocrit 37.1 % (39.6-49.0); Lymphocytes % 9.4 % (15.3-44.8); MCV 82.5 fL (80-100); RBC Red Blood Cell Count 4.49 M/uL (4.33-5.43)
[2021-08-20 13:46] LABS: Protime INR 1.39
[~2021-08-24 07:30] MED LIST: ATROPINE SULF 1 MG/10 ML SYR IV ONE; FENTANYL CITR 100 MCG/2 ML ONE; HEPA 1000U/500MLS 2,000 UNIT/1,000 ML BAG IV ONE; LIDOCAINE 1% 20 ML MDV ONE; MIDAZOLAM HCL 2 MG/2 ML INJ ONE; NA CHLORIDE 0.9% 0 ML IV ONE; NA CHLORIDE 0.9% 500 ML ONE; NITROGLYCERIN 100 MCG/ML SYR (for cath lab use only) IV ONE; NITROGLYCERIN/D5W 25 MG/250 ML BTL IV ONE
[2021-08-24] MEDS ORDERED: ACETYLCYST 20% 4 ML VIAL IH ONE (09:08)
[2021-08-24 10:46] VITALS: O2SAT 98
[2021-08-24 11:08] VITALS: BP 105/43; TEMP 97.6
--- NOTE | 2021-08-24 12:00 | OP ---
Surgeon: Garfield Adam MD Senior Cobol Developer: Ms. Nica Pollard. Admitted as an outpatient on 08/24/2021, underwent an abdominal angiogram with runoff. Indication: Peripheral arterial disease. Mr. Ribeiro is 61. History of CHF, diabetes, PAD, status p ost left SFA stent before with new onset claudication and nonhealing wound in the left leg. Procedure In Detail: Brought to the laborer salvage today, prepped and draped in routine sterile fashion. Given Versed and fentanyl for sedation. A 6-Mongolian sheath introduced in the right common femoral art gregory successfully using the Seldinger technique and 10 cc of Xylocaine. A pigtail catheter was advanc ed above the renals. Abdominal angiogram with runoff was done showing a completely occluded left SFA from the ostium all the way to the popliteal with a completely occluded stent in the SFA. There wer e good distal vessels below the knee bilaterally. The SFA on the right had diffuse 60% to 70% stenos is, but the aorta, iliacs and renals were normal. There were no complications or blood loss. The pa tient tolerated the procedure well. Postoperative Diagnosis: Peripheral arterial disease. Plan: Plan is for bilateral SFA stent versus femoral-popliteal. I will send Mr. Ribeiro to Dr. Hayes in [place] for consultation. I do not want to intervene today because of his creatinine of 2.6. He received Mucomyst before and after the procedure. CRISTINA/LUISA Voice ID: [id number] Report ID: [id number]
== END 2021-08-24 11:32 | disposition home or self-care (01) ==
LOC: CCL 07:30
DX: I70.213 Atherosclerosis of native arteries of extremities with intermittent claudication, bilateral legs (principal); I70.92 Chronic total occlusion of artery of the extremities; I25.10 Atherosclerotic heart disease of native coronary artery without angina pectoris; I13.0 Hypertensive heart and chronic kidney disease with heart failure and stage 1 through stage 4 chronic kidney disease, or unspecified chronic kidney disease; E11.22 Type 2 diabetes mellitus with diabetic chronic kidney disease; N18.9 Chronic kidney disease, unspecified; I50.22 Chronic systolic (congestive) heart failure; I65.23 Occlusion and stenosis of bilateral carotid arteries; S81.802A Unspecified open wound, left lower leg, initial encounter; G47.33 Obstructive sleep apnea (adult) (pediatric); I48.0 Paroxysmal atrial fibrillation; E78.2 Mixed hyperlipidemia; I25.5 Ischemic cardiomyopathy; Z20.822 Contact with and (suspected) exposure to COVID-19; Z95.1 Presence of aortocoronary bypass graft; Z95.5 Presence of coronary angioplasty implant and graft; Z95.820 Peripheral vascular angioplasty status with implants and grafts; Z87.891 Personal history of nicotine dependence; Z79.01 Long term (current) use of anticoagulants; Z79.4 Long term (current) use of insulin; Z79.899 Other long term (current) drug therapy; Z88.1 Allergy status to other antibiotic agents; Z82.49 Family history of ischemic heart disease and other diseases of the circulatory system
CPT/HCPCS: 93005; 85025; 80048; 36415; 85610; 82947 ×2; 85730; 71046; 36200; 75630; 87811; C1893; C1887; C1769; J2250; J3010; J7040; J1644; J0583

== ENCOUNTER 2021-10-10 05:28 | Emergency (ER) | payer OTHER ==
--- OUTSIDE RECORDS SUMMARY | 2021-10-10 05:39 | XMS REPORT | Continuity of Care Document ---
:1960 Author Organization [facility] t Address [address] [place] [address] Care Team Providers Name Role Phone ROSALIO BLEDSOE Primary Care Physician Unavailable TORIBIO GREGORY Attending Clinician Unavailable REINA JOHNSON Attending Clinician Unavailable TORIBIO GREGORY Attending Clinician Unavailable J Luis Rodas MD Attending Clinician [phone] Luann Nelson LVN Attending Clinician Unavailable Jodee Carmona MD Attending Clinician Fidelina Culver MD Attending Clinician Lilly Cotton MD Attending Clinician J LUIS RODAS Attending Clinician Unavailable Shanelle Carreon MD Attending Clinician JODEE CARMONA Attending Clinician Unavailable Bárbara Zaidi RN Attending Clinician Unavailable JENNIFER VANESSA Attending Clinician Unavailable [facility] Attending Clinician Unavailable Jennifer Riggins Attending Clinician Vernell Syed Attending Clinician ProviderPaulo [facility] Attending Clinician Unavailable Unknown, Attending Attending Clinician Unavailable Estela Tipton Attending Clinician ESTELA PRASAD Attending Clinician Unavailable TORIBIO GREGORY Admitting Clinician Unavailable FIDELINA CULVER Admitting Clinician Unavailable Payers Payer Name Policy Type Policy Number Effective Date Expiration Date S [facility] MEDICARE A B [id number] 2016 00:00:00 [employer] INDEMNITY [id number] 2016 NON CONTR 00:00:00 MEDICARE PART A [id number] 2016 AND B 00:00:00 MEDICARE PART A [id number] 2016 \\T\\ B - MEDICARE 00:00:00 HMO/QPOS/SELECT - [id number] 2016 2021 [employer] 00:00:00 00:00:00 MEDICARE PART A [id number] 2016 \\T\\ B 00:00:00 [employer] INDEMNITY [id number] 2016 00:00:00 Problems Condition Condition Condition Status Onset Resolution Last Treating Co mments Source Name Details Category Date Date Treatment Clinician Date Congestive Congestive Disease Active 2020-[address] heart heart 2-23 [facility] failure failure 00:00: Medical (CHF) (CHF) 00 Center Elevated Elevated Disease [facility] 2020[facility] liver [facility] enzymes enzymes 00:00: Medical 00 Center SUSANA (acute SUSANA (acute Disease Active 2020-[address] kidney kidney 2-23 [facility] injury) injury) 00:00: Medical 00 Center Type 2 Type 2 Disease Active [facility] diabetes diabetes 3-29 Health mellitus mellitus 00:00: with with 00 hypoglycem hypoglycem ia ia Obesity Obesity Disease Active 2019-02 [facility] 1-17 [facility] 00:00: 00 Diabetes Diabetes Disease Active 2019-02 [facility] type 2, type 2, 1-17 [facility] uncontroll uncontroll 00:00: Me dical ed ed 00 Center Essential Essential Disease Active 2019-[address] [facility] hypertensi hypertensi 1-17 [facility] on on 00:00: Medical 00 Center Hyperlipid Hyperlipid Disease Active 2019-[address] emia emia 1-17 [facility] 00:[facility]: Medical 00 Center GARRETT GARRETT Disease Active 2019-[address] [facility] (obstructi (obstructi 1-17 [place] [facility] ve sleep ve sleep 00:00: Medica l apnea) apnea) 00 Center Uncontroll Uncontroll Disease Active U T ed [...] ncy 00:00: 00 Acute Acute Disease Active [facility] ischemic ischemic 3-10 [facility] stroke stroke 00:00: Medical 00 [place] Coronary Coronary Disease Active [facility] artery artery 6-16 [facility] disease disease 00:00: Medical 00 [place] Palpitatio Palpitatio Disease Active U T n n 6-12 Health 00:00: 00 No known No known Disease Unive rs active active ity of problems problems [facility] Allergies, Adverse Reactions, Alerts Allergy Allergy Status Severity Reaction(s) Onset Inactive Treating Comm ents Source Name Type Date Date Clinician CEPHALEX Allergy Active Low Rash 2020-[address] [facility] [facility] IN 2-23 [facility] 00:00: Medical 00 Center Cephalex Propensi Active Rash 2020-[address] [facility] in ty to 2-23 [facility] adverse 00:00: Medical reaction 00 Center s Cephalex Allergy Active [facility] in to 7-23 Health substanc 00:00: e 00 CEPHALEX DRUG Active Hives Univers IN INGREDI 1- ity of 00:00: [place] 00 Medical Branch Cephalex Propensi Active Hives Univer s in ty to -28 ity of adverse 00:00: [place] reaction 00 [facility] s Branch NO KNOWN Drug Active Univers ALLERGIE Class ity of S [facility] Family History Family Member Diagnosis Comments Start Date Stop Date Source Natural mother Heart disease [facility] Social History Social Habit Start Date Stop Date Quantity Comments Source Exposure to Not sure [facility] SARS-CoV-2 (event) History SDOH [facility] Alcohol Frequency [facility] Center History SDOH [facility] Alcohol Std Drinks Medica Center History SDOH [facility] Alcohol Binge Medical [address] Alcohol intake 2021-02-05 2021-02-05 [facility]er [facility] alcohol [facility] Center (finding) Tobacco use and 2021-01-29 2021-01-[address] [facility] [address] [place] [facility] exposure 00:00:00 00:00:00 Medical Center History SDOH 2021-01-29 2021-01-29 socially DIMITRY [place] Alcohol Comment 00:00:00 00:00:00 Medical C enter Sex [birth year] At [birth year] DIMITRY [place] 00:00:00 00:00:00 Medical Center Smoking Status Start Date Stop Date Source Never smoker DIMITRY [facility] Unknown if ever smoked [facility] Medications Ordered Filled Start Stop Current Ordering Indication Dosage Frequency Signature Comments Components Source Medication Medication Date Date Medication? Clinician (SIG) Name Name insulin Yes [id number] 26U Inject 26 U T detemir 4-05 Units Health (Levemir) 00:00: under the 100 UNIT/ML 00 skin every injection night. NovoLOG Yes [id number] INJECT U T FLEXPEN 100 3-30 9109 UNDER THE Hea lth UNIT/ML 00:00: SKIN 14 injection 00 UNITS BEFORE BREAKFAST, 16 UNITS BEFORE LUNCH, & 18 UNITS BEFORE DINNER Entresto Yes 1{tbl} Q.5D Take 1 UT 24-26 MG 1-28 tablet by Health tablet 00:00: mouth 00 every 12 (twelve) hours. Entresto Yes 1{tbl} Q.5D Take 1 UT 24-26 MG 1-28 tablet by Health tablet 00:00: mouth 00 every 12 (twelve) hours. fenofibrate Yes 48mg QD Take 48 mg UT (Tricor) 48 1-27 by mouth 1 He alth MG tablet 00:00: (one) time 00 each day. fenofibrate Yes 48mg QD Take 48 mg UT (Tricor) 48 1-27 by mouth 1 He alth MG tablet 00:00: (one) time 00 each day. Trulicity Yes [id number] INJECT UT 1.5 1-24 9109 UNDER THE Health MG/0.5ML 00:00: SKIN 1.5MG solution 00 ONCE A pen-injecto WEEK r Trulicity Yes [id number] INJECT UT 1.5 1-24 9109 UNDER THE Health MG/0.5ML 00:00: SKIN 1.5MG solution 00 ONCE A pen-injecto WEEK r Trulicity Yes [id number] INJECT UT 1.5 03-02 UNDER THE Health MG/0.5ML 00:00: SKIN 1.5MG solution 00 ONCE A pen-injecto WEEK r bumetanide Yes UT (Bumex) 2 1-20 Health MG tablet 00:00: 00 bumetanide Yes UT (Bumex) 2 1-20 Health MG tablet 00:00: 00 apixaban Yes 5mg Q.5D Take [address] (ELIQUIS) 5 02 by mouth 2 [place] [facility] mg Tab 16:16: (two) Medical tablet 01 times Center daily. insulin Yes Inject [facility] aspart 02-08 subcutaneo [facility] U-100 16:16: usly 3 Medical (NovoLOG) 00 (three) Center 100 unit/mL times (3 mL) InPn daily before meals Novolog flex pen breakfast 3 unit for BS >120 no insulin below 80,, lunch 8 unitsDinne r 8 units . amiodarone Yes 200mg Q.5D Take [address] (PACERONE) 1-02 mg by [facility] 200 MG 16:16: mouth 2 Medical tablet 00 (two) Center times daily. brimonidine Yes 1[drp] Q.5D Place [address] (ALPHAGAN -02 drop into [facility] P) 0.1 % 16:16: both eyes Medi last Drop 00 2 (two) Center times daily. pantoprazol Yes 40mg QD Take [address] [facility] e -02 by mouth [facility] (PROTONIX) 16:16: daily. Medic al 40 MG 00 Center tablet bumetanide 2022- No 2mg Q.5D Take [address] (BUMEX) 2 02-07 tablet (2 Luke s MG tablet 00:00: 23:59 mg total) Me dical 00 :00 by mouth 2 Center (two) times daily. carvediloL 2022- No 3.125mg Take [address] (COREG) 02-07 tablet [facility] 3.125 MG 00:00: 23:59 (3.125 mg Med ical tablet 00 :00 total) by Center mouth 2 (two) times daily with breakfast and dinner. fenofibrate 2022- No 48mg QD Take [address] (TRICOR) 48 02-07- tablet (48 L ukes MG tablet 00:00: 23:59 mg total) Me dical 00 :00 by mouth Center daily. atorvastati 2020-02 Yes [id number] TAKE 1 UT n (Lipitor) 2-09 TABLET AT Hea lth 40 MG 00:00: BEDTIME tablet 00 atorvastati 2020-02 Yes [id number] TAKE 1 UT n (Lipitor) 2-09 TABLET AT Hea lth 40 MG 00:00: BEDTIME tablet 00 atorvastati 2020-02 Yes [id number] TAKE 1 UT n (Lipitor) 2-09 TABLET AT Hea lth 40 MG 00:00: BEDTIME tablet 00 atorvastati 2020-02 Yes 1{tbl} QD Take [address] n (LIPITOR) 2-09 tablet by [place] 40 MG 00:00: mouth Medical tablet 00 nightly . [place] Alphagan P 2020-02 Yes UT 0.1 % 2-07 Health ophthalmic 00:00: solution 00 Alphagan P 2020-02 Yes UT 0.1 % 2-07 Health ophthalmic 00:00: solution 00 Dulaglutide 2020-02- No [id number] 3mg Inject 3 UT (Trulicity) 0-18 01-17 mg under Hea lth 3 MG/0.5ML 00:00: 05:59 the skin 1 solution 00 :00 (one) time pen-injecto per week. r Dulaglutide 2020-02- No [id number] 3mg Inject 3 UT (Trulicity) 0-18 01-17 mg under Hea lth 3 MG/0.5ML 00:00: 05:59 the skin 1 solution 00 :00 (one) time pen-injecto per week. r dulaglutide 2020-02- No 3mg Inject [address] (Trulicity) 0-18 01-16 mg [facility] 3 mg/0.5 mL 00:00: 23:59 subcutaneo Medical PnIj 00 :00 usly. [place] Dulaglutide 2020-02- No [id number] 3mg Inject 3 UT (Trulicity) 0-18 10-18 mg under Hea lth 3 MG/0.5ML 00:00: 00:00 the skin 1 solution 00 :00 (one) time pen-injecto per week. r Dulaglutide 2020-02- No [id number] 3mg Inject 3 UT (Trulicity) 0-18 10-18 mg under Hea lth 3 MG/0.5ML 00:00: 00:00 the skin 1 solution 00 :00 (one) time pen-injecto per week. r metFORMIN Yes [id number] TAKE 2 UT XR 9-13 9109 TABLETS BY Health (Glucophage 00:00: MOUTH -XR) 500 MG 00 TWICE A 24 hr DAY tablet metFORMIN Yes [id number] TAKE 2 UT XR 9-13 9109 TABLETS BY Health (Glucophage 00:00: MOUTH -XR) 500 MG 00 TWICE A 24 hr DAY tablet metFORMIN Yes [id number] TAKE 2 UT XR 9-13 9109 TABLETS BY Health (Glucophage 00:00: MOUTH -XR) 500 MG 00 TWICE A 24 hr DAY tablet metFORMIN Yes [id number] TAKE 2 UT XR 9-13 9109 TABLETS BY Health (Glucophage 00:00: MOUTH -XR) 500 MG 00 TWICE A 24 hr DAY tablet metFORMIN Yes [id number] TAKE 2 UT XR 9-13 9109 TABLETS BY Health (Glucophage 00:00: MOUTH -XR) 500 MG 00 TWICE A 24 hr DAY tablet metFORMIN Yes [id number] TAKE 2 UT XR 9-13 9109 TABLETS BY Health (Glucophage 00:00: MOUTH -XR) 500 MG 00 TWICE A 24 hr DAY tablet metFORMIN Yes [id number] TAKE 2 UT XR 9-13 9109 TABLETS BY Health (Glucophage 00:00: MOUTH -XR) 500 MG 00 TWICE A 24 hr DAY tablet metFORMIN Yes [id number] TAKE 2 UT XR 9-13 9109 TABLETS BY Health (Glucophage 00:00: MOUTH -XR) 500 MG 00 TWICE A 24 hr DAY tablet BD Pen 2020- No [id number] USE 5 UT Needle Nadira 8-26 11-25 TIMES Health U/F 32G X 4 00:00: 05:59 DAILY WITH MM misc 00 :00 LEVEMIR AND NOVOLOG BD Pen 2020- No [id number] USE 5 UT Needle Nadira 8-26 11-25 TIMES Health U/F 32G X 4 00:00: 05:59 DAILY WITH MM misc 00 :00 LEVEMIR AND NOVOLOG BD Pen 2020- No [id number] USE 5 UT Needle Nadira 8-26 11-25 TIMES Health U/F 32G X 4 00:00: 05:59 DAILY WITH MM misc 00 :00 LEVEMIR AND NOVOLOG BD Pen 2020- No [id number] USE 5 UT Needle Nadira 8-26 11-25 TIMES Health U/F 32G X 4 00:00: 05:59 DAILY WITH MM misc 00 :00 LEVEMIR AND NOVOLOG BD Pen 2020- No [id number] USE 5 UT Needle Nadira 8-26 11-25 TIMES Health U/F 32G X 4 00:00: 05:59 DAILY WITH MM misc 00 :00 LEVEMIR AND NOVOLOG BD Pen 2020- No [id number] USE 5 UT Needle [place]ira 8-26 11-25 TIMES Health U/F 32G X 4 00:00: 05:59 DAILY WITH MM misc 00 :00 LEVEMIR AND NOVOLOG BD Pen 2020- No [id number] USE 5 UT Needle [place]ira 8-26 11-25 TIMES Health U/F 32G X 4 00:00: 05:59 DAILY WITH MM misc 00 :00 LEVEMIR AND NOVOLOG BD Pen 2020- No [id number] USE 5 UT Needle [place]ira 8-26 11-25 TIMES Health U/F 32G X 4 00:00: 05:59 DAILY WITH MM misc 00 :00 LEVEMIR AND NOVOLOG spironolact 2020-0 Yes 25mg QD Take 25 mg UT one 7-21 by mouth 1 Health (Aldactone) 00:00: (one) time 25 MG 00 each day. tablet spironolact 2020-0 Yes 25mg QD Take 25 mg UT [...] MG 00 each day. tablet spironolact 2021-0 2022- No 25mg QD Take 25 mg UT one 7-21 -27 by mouth 1 Health (Aldactone) 00:00: 00:00 (one) time 25 MG 00 :00 each day. tablet Trulicity 2020-0 Yes [id number] INJECT UT 1.5 7-19 9109 UNDER THE Health MG/0.5ML 00:00: SKIN 1.5MG solution 00 ONCE A pen-injecto WEEK r Trulicity 2020-0 Yes [id number] INJECT UT 1.5 7-19 9109 UNDER THE Health MG/0.5ML 00:00: SKIN 1.5MG solution 00 ONCE A pen-injecto WEEK r Trulicity 2020-0 Yes [id number] INJECT UT 1.5 7-19 9109 UNDER THE Health MG/0.5ML 00:00: SKIN 1.5MG solution 00 ONCE A pen-injecto WEEK r Trulicity 2021-0 Yes [id number] INJECT UT 1.5 7-19 9109 UNDER THE Health MG/0.5ML 00:00: SKIN 1.5MG solution 00 ONCE A pen-injecto WEEK r Trulicity Yes [id number] INJECT UT 1.5 7-19 9109 UNDER THE Health MG/0.5ML 00:00: SKIN 1.5MG solution 00 ONCE A pen-injecto WEEK r Trulicity Yes [id number] INJECT UT 1.5 7-19 9109 UNDER THE Health MG/0.5ML 00:00: SKIN 1.5MG solution 00 ONCE A pen-injecto WEEK r Trulicity Yes [id number] INJECT UT 1.5 7-19 9109 UNDER THE Health MG/0.5ML 00:00: SKIN 1.5MG solution 00 ONCE A pen-injecto WEEK r Trulicity Yes [id number] INJECT UT 1.5 7-19 9109 UNDER THE Health MG/0.5ML 00:00: SKIN 1.5MG solution 00 ONCE A pen-injecto WEEK r Trulicity Yes [id number] INJECT UT 1.5 7-19 9109 UNDER THE Health MG/0.5ML 00:00: SKIN 1.5MG solution 00 ONCE A pen-injecto WEEK r Trulicity Yes [id number] INJECT UT 1.5 7-19 9109 UNDER THE [...] tablet 00 (two) times a day. amiodarone 1-0 Yes 200mg Q.5D Take 200 UT (Pacerone) 7-06 mg by Health 200 MG 00:00: mouth 2 tablet 00 (two) times a day. amiodarone 1-0 Yes 200mg Q.5D Take 200 UT (Pacerone) 7-06 mg by Health 200 MG 00:00: mouth 2 tablet 00 (two) times a day. amiodarone 1-0 Yes 200mg Q.5D Take 200 UT (Pacerone) 7-06 mg by Health 200 MG 00:00: mouth 2 tablet 00 (two) times a day. amiodarone 1-0 Yes 200mg Q.5D Take 200 UT (Pacerone) [...] Eliquis 5 2020-0 Yes UT MG tablet 08-06 Health 00:00: 00 Eliquis 5 2020-0 Yes UT MG tablet 08-06 Health 00:00: 00 Eliquis 5 2020-0 Yes UT MG tablet 08-06 Health 00:00: 00 Eliquis 5 2020-0 Yes UT MG tablet 08-06 Health 00:00: 00 Eliquis 5 2020-0 Yes UT MG tablet 08-06 Health 00:00: 00 Eliquis 5 2020-0 Yes UT MG tablet 08-06 Health 00:00: 00 apixaban 2020-0 2021- [facility] (Eliquis) 5 08-06 12-24 [facility] mg Tab 00:00: 00:00 Medical tablet 00 :00 Center furosemide 2020-0 Yes 80mg Q.5D Take 80 mg U T (Lasix) 40 6-27 by mouth 2 Hea lth MG tablet 00:00: (two) 00 times a day. furosemide 2020-0 Yes 80mg Q.5D Take 80 mg U T (Lasix) 40 6-27 by mouth 2 Hea lth MG tablet 00:00: (two) 00 times a day. furosemide 2020-0 Yes 80mg Q.5D Take 80 mg U T (Lasix) 40 6-27 by mouth 2 Hea lth MG tablet 00:00: (two) 00 times a day. furosemide 2020-0 Yes 80mg Q.5D Take 80 mg U T (Lasix) 40 6-27 by mouth 2 Hea lth MG tablet 00:00: (two) 00 times a day. furosemide 2020-0 Yes 80mg Q.5D Take 80 mg U T (Lasix) 40 6-27 by mouth 2 Hea lth MG tablet 00:00: (two) 00 times a day. furosemide 1-0 Yes 80mg Q.5D Take 80 mg U T (Lasix) 40 6-27 by mouth 2 Hea lth MG tablet 00:00: (two) 00 times a day. furosemide 1-0 Yes 80mg Q.5D Take 80 mg U T (Lasix) 40 6-27 by mouth 2 Hea lth MG tablet 00:00: (two) 00 times a day. furosemide 2021-0 Yes 80mg Q.5D Take 80 mg U T (Lasix) 40 6-27 by mouth 2 Hea lth MG tablet 00:00: (two) 00 times a day. furosemide 2020-0 Yes 80mg Q.5D Take 80 mg U T (Lasix) 40 6-27 by mouth 2 Hea lth MG tablet 00:00: (two) 00 times a day. furosemide 2020-0 2- No 80mg Q.5D Take 80 mg UT (Lasix) 40 6-27 -27 by mouth 2 He alth MG tablet 00:00: 00:00 (two) 00 :00 times a day. metFORMIN 2020-0 Yes [id number] TAKE 2 UT XR 6-18 9109 TABLETS BY Sapheneia (Glucophage 00:00: MOUTH -XR) 500 MG 00 TWICE A 24 hr DAY tablet NovoLOG 0 Yes INJECT UT FLEXPEN 100 6-18 UNDER THE Hea lth UNIT/ML 00:00: SKIN 10 injection 00 UNITS BEFORE BREAKFAST, 12 UNITS BEFORE LUNCH, & 14 UNITS BEFORE DINNER metFORMIN 2020-0 Yes [id number] TAKE 2 UT XR 6-18 9109 TABLETS BY S[facility] (Glucophage 00:00: MOUTH -XR) 500 MG 00 [...] 14 UNITS BEFORE DINNER metFORMIN 2020-0 Yes [id number] TAKE 2 UT XR 6-18 9109 TABLETS [...] 14 UNITS BEFORE DINNER metFORMIN 2020-0 Yes [id number] TAKE 2 UT XR 6-18 9109 TABLETS BY Health (Glucophage 00:00: MOUTH -XR) 500 MG 00 TWICE A 24 hr DAY tablet metFORMIN 2020-0 Yes [id number] TAKE 2 UT XR 6-18 9109 TABLETS BY Health (Glucophage 00:00: MOUTH -XR) 500 MG 00 TWICE A 24 hr DAY tablet metFORMIN 2020-0 Yes [id number] TAKE 2 UT XR 6-18 9109 TABLETS BY Health (Glucophage 00:00: MOUTH -XR) 500 MG 00 TWICE A 24 hr DAY tablet NovoLOG 2020-0 Yes INJECT UT FLEXPEN 100 6-18 UNDER THE Hea lth UNIT/ML 00:00: SKIN 10 injection 00 UNITS BEFORE BREAKFAST, 12 UNITS BEFORE LUNCH, & 14 UNITS BEFORE DINNER metFORMIN 2020-0 202- No [id number] TAKE 2 UT XR 6-18 - 9109 TABLETS BY Health (Glucophage 00:00: 00:00 MOUTH -XR) 500 MG 00 :00 TWICE A 24 hr DAY tablet metFORMIN 2020-0 2021- No [id number] TAKE 2 UT XR 6-18 - 9109 TABLETS BY Health (Glucophage 00:00: 00:00 MOUTH -XR) 500 MG 00 :00 TWICE A 24 hr DAY tablet fenofibrate 1-0 Yes UT (Tricor) 508 Health 145 MG 00:00: tablet 00 lisinopril 2021-0 Yes UT 5 MG tablet 08 Health 00:00: 00 fenofibrate 2021-0 Yes UT (Tricor) 508 Health 145 MG 00:00: tablet 00 lisinopril 1-0 Yes UT 5 MG tablet 06-14 Health 00:00: 00 fenofibrate 2021-0 Yes UT (Tricor) 508 Health 145 MG 00:00: tablet 00 lisinopril 1-0 Yes UT 5 MG tablet 06-14 Health 00:00: 00 fenofibrate 1-0 Yes UT (Tricor) 508 Health 145 MG 00:00: tablet 00 lisinopril 2021-0 Yes UT 5 MG tablet 06-14 Health 00:00: 00 fenofibrate 2021-0 Yes UT (Tricor) 508 Health 145 MG 00:00: tablet 00 lisinopril 1-0 Yes UT 5 MG tablet 06-14 Health 00:00: 00 fenofibrate 2021-0 Yes UT (Tricor) 508 Health 145 MG 00:00: tablet 00 lisinopril 1-0 Yes UT 5 MG tablet 06-14 Health 00:00: 00 fenofibrate 2021-0 Yes UT (Tricor) 508 Health 145 MG 00:00: tablet 00 fenofibrate 2021-0 Yes UT (Tricor) 508 Health 145 MG 00:00: tablet 00 fenofibrate 1-0 Yes UT (Tricor) 508 Health 145 MG 00:00: tablet 00 fenofibrate 2021-0 Yes UT (Tricor) 508 Health 145 MG 00:00: tablet 00 lisinopril 2021-0 Yes UT 5 MG tablet 06-14 Health 00:00: 00 fenofibrate 2021-0 Yes UT (Tricor) 508 Health 145 MG 00:00: tablet 00 lisinopril 2021-0 Yes UT 5 MG tablet 08 Health 00:00: 00 fenofibrate 2021-0 Yes UT (Tricor) 508 Health 145 MG 00:00: tablet 00 lisinopril 2021-0 Yes UT 5 MG tablet 06-14 Health 00:00: 00 lisinopril 0 2021- No UT 5 MG tablet 06-14 Health 00:00: 00:00 00 :00 fenofibrate 2020-0 2021- No [facility]14 [facility] 145 MG 00:00: 00:00 Medical tablet 00 :00 Center carvedilol 0 Yes UT (Coreg) 2-25 Health 12.5 MG [...] Health 40 MG 00:00: tablet 00 atorvastati 2021-0 Yes UT n (Lipitor) 2-04 Health 40 [...] Health 40 MG 00:00: tablet 00 benzonatate Yes [id number] 100mg Take 1 Univers (TESSALON 1-28 capsule by itjohn of YAN) 100 00:00: mouth 3 Ameya as mg capsule 00 (three) Medica l times Branch daily. benzonatate Yes [id number] 100mg Take 1 Univers (TESSALON 1-28 capsule by itjohn of YAN) 100 00:00: mouth 3 Ameya as mg capsule 00 (three) Medica l times Branch daily. benzonatate 0 Yes [id number] 100mg Take 1 Univers (TESSALON 1-28 capsule by itjohn of YAN) 100 00:00: mouth 3 Ameya as mg capsule 00 (three) Medica l times Branch daily. benzonatate Yes 100mg Take [address] (TESSALON) 1-28 mg by [facility] 100 MG 00:00: mouth. Medical capsule 00 Center lisinopriL Yes Univers 5 mg tablet 1-20 ity of 00:00: [facility] Branch lisinopriL 0 Yes Univers 5 mg tablet 1-20 ity of 00:00: [facility] lisinopriL 0 Yes Univers 5 mg tablet 1-20 ity of 00:00: [facility] NADIRA PEN 0 Yes Univers NEEDLE 32 1-06 ity of gauge x 00:00: " [place] [facility] NADIRA PEN 2020-0 Yes Univers NEEDLE 32 1-06 ity of gauge x 00:00: " [place] [facility] NADIRA PEN 2021-0 Yes Univers NEEDLE 32 1-06 ity of gauge x 00:00: [place] 532" [place] 00 Medical Branch furosemide 2019-02 Yes Univers 40 mg 2-21 ity of tablet 00:00: [facility] furosemide 2019-02 Yes Univers 40 mg 2-21 ity of tablet 00:00: [place] [facility] furosemide 2019-02 Yes Univers 40 mg 2-21 ity of tablet 00:00: [place] [facility] furosemide 2019-02- No 80mg Take [address] [facility] [address] (LASIX) 40 2-21 02-07 by mouth. [place] MG tablet 00:00: 00:00 Medical 00 :00 Center carvediloL 2019-02 Yes Univers 12.5 mg 2-15 ity of tablet 00:00: [place] [facility] NOVOLOG 2019-02 Yes INJECT Univers FLEXPEN 2-15 UNDER THE ity of U-100 00:00: SKIN 14 [place] INSULIN 100 00 UNITS Medical unit/mL (3 [...] mg EC 2-15 ity of tablet 00:00: [facility] gabapentin 2019-02 Yes Univers 300 mg 2-15 ity of capsule 00:00: [place] [facility] carvediloL 2019-02 Yes Univers 12.5 mg 2-15 ity of tablet 00:00: [place] [facility] NOVOLOG 2019-02 Yes INJECT Univers FLEXPEN [...] (3 00 USLY DAILY Med ical mL) In Branch metformin 2019-02 Yes 1000mg Take 1,000 Univers ER 500 mg 2-15 mg by ity of 24 hr 00:00: mouth 2 [place] tablet 00 (two) Medical times [place] daily. pantoprazol 2019-02 Yes Univer s e 40 mg EC 2-15 ity of tablet 00:00: [place] [facility] gabapentin 2019-02 Yes Univers 300 mg 2-15 ity of capsule 00:00: [place] [facility] carvediloL 2019-02 Yes Univers 12.5 mg 2-15 ity of tablet 00:00: [address] Branch NOVOLOG 2019-02 Yes INJECT Univers FLEXPEN 2-15 UNDER THE ity of U-100 00:00: SKIN 14 [place] INSULIN 100 00 UNITS Medical unit/mL (3 BEFORE Branch mL) BREAKFAST, injection 16 UNITS BEFORE LUNCH, & 18 UNITS BEFORE DINNER TRESIBA 2019-02 Yes INJECT 90 Unive rs FLEXTOUCH 2-15 UNITS ity of U-200 200 00:00: SUBCUTANEO [place] unit/mL (3 00 USLY DAILY Med ical mL) In Branch metformin 2019-02 Yes 1000mg Take 1,000 Univers ER 500 mg 2-15 mg by ity of 24 hr 00:00: mouth 2 [place] tablet 00 (two) Medical times [place] daily. pantoprazol 2019-02 Yes Univer s e 40 mg EC 2-15 ity of tablet 00:00: [address] Branch gabapentin 2019-02 Yes Univers 300 mg 2-15 ity of capsule 00:00: [address] Branch gabapentin 2019-02 Yes [facility] (Neurontin) 2-15 Health 300 MG 00:00: capsule 00 pantoprazol 2019-02 Yes UT e 2-15 Health (ProtoNix) 00:00: 40 MG EC 00 tablet gabapentin 2019-02 Yes UT (Neurontin) 2-15 Health 300 MG 00:00: capsule 00 pantoprazol 2019-02 Yes UT e 2-15 Health (ProtoNix) 00:00: 40 MG EC 00 tablet gabapentin 2019-02 Yes UT (Neurontin) 2-15 Health 300 MG 00:00: capsule 00 pantoprazol 2019-02 Yes UT e 2-15 Health (ProtoNix) 00:00: 40 MG EC 00 tablet gabapentin 2019-02 Yes UT (Neurontin) 2-15 Health 300 MG 00:00: capsule 00 pantoprazol 2019- Yes UT e 2-15 Health (ProtoNix) 00:00: 40 MG EC 00 tablet gabapentin 2020- Yes UT (Neurontin) 2-15 Health 300 MG 00:00: capsule 00 pantoprazol 2019- Yes UT e 2-15 Health (ProtoNix) 00:00: 40 MG EC 00 tablet gabapentin 2019- Yes UT (Neurontin) 2-15 Health 300 MG 00:00: capsule 00 pantoprazol 2019- Yes UT e 2-15 Health (ProtoNix) 00:00: 40 MG EC 00 tablet pantoprazol 2019- Yes UT e 2-15 Health (ProtoNix) 00:00: 40 MG EC 00 tablet pantoprazol 2020- Yes UT e 2-15 Health (ProtoNix) 00:00: 40 MG EC 00 tablet pantoprazol 2019- Yes UT e 2-15 Health (ProtoNix) 00:00: 40 MG EC 00 tablet gabapentin 2019- Yes UT (Neurontin) 2-15 Health 300 MG 00:00: capsule 00 pantoprazol 2019-02 Yes UT e 2-15 Health (ProtoNix) 00:00: 40 MG EC 00 tablet gabapentin 2019- Yes UT (Neurontin) 2-15 Health 300 MG 00:00: capsule 00 pantoprazol 2019- Yes UT e 2-15 Health (ProtoNix) 00:00: 40 MG EC 00 tablet gabapentin 2019- Yes UT (Neurontin) 2-15 Health 300 MG 00:00: capsule 00 pantoprazol 2019- Yes UT e 2-15 Health (ProtoNix) 00:00: 40 MG EC 00 tablet gabapentin 2019-02- No UT (Neurontin) 2-15 03-05 Health 300 MG 00:00: 00:00 capsule 00 :00 carvediloL 2019-02- No [facility] (COREG) 2-15 02-07 [facility] 12.5 MG 00:00: 00:00 Medical tablet 00 :00 Center atorvastati 2019-02 Yes Univer s n 40 mg 1-24 ity of tablet 00:00: [place] 00 [facility] Branch atorvastati 2019-02 Yes Univer s n 40 mg 1-24 ity of tablet 00:00: [address] Branch atorvastati 2019-02 Yes Univer s n 40 mg 1-24 ity of tablet 00:00: [place] 00 Medical Branch TRULICITY 2020-1 Yes INJECT Univer s 1.5 mg/0.5 1-10 UNDER THE ity of mL PnIj 00:00[place] 1[place]MG [place] ON[place] A Medical WEEK Branch TRULICITY 2020-1 Yes INJECT Univer s 1.5 mg/0.5 1-10 UNDER THE ity of mL PnIj 00:00: [place]IN 1.5MG [place] ONCE A Medical WEEK Branch TRULICITY 2020-1 Yes INJECT Univer s 1.5 mg/0.5 1-10 UNDER THE ity of mL PnIj 00:00[place] 1.[place]MG [place] ONCE A Medical WEEK Branch fenofibrate 2020-1 Yes Univer s 145 mg 1-09 ity of tablet 00:00: [place] 00 Medical Branch fenofibrate 2020-1 Yes Univer s 145 mg 1-09 ity of tablet 00:00: [place] [id number] Medical Branch fenofibrate 2020-1 Yes Univer s 145 mg 1-09 ity of tablet 00:00: [place] 00 Medical Branch ELIQUIS 5 2020-1 Yes Univers mg tablet 1-03 ity of 00:00: [place] 00 Medical Branch ELIQUIS 5 2020-1 Yes Univers mg tablet 1-03 ity of 00:00: [place] 00 Medical Branch ELIQUIS 5 2020-1 Yes Univers mg tablet 1-03 ity of 00:00: [place] 00 Medical Branch insulin 2020-0 Yes INJECT 70 UT [...] 2020-0 Yes 45U 45 Units. [facility] degludec 03-09 Health ([facility] 00:00: FlexTouch) 00 200 UNIT/ML injection insulin 2020-0 Yes 45U 45 Units. UT degludec 03-09 Health ([place] 00:00: FlexTouch) 00 200 UNIT/ML injection insulin 2020-0 Yes 45U 45 Units. UT degludec 03-09 Health ([facility] 00:00: FlexTouch) 00 200 UNIT/ML injection insulin 2020-0 Yes INJECT 70 UT degludec - UNITS Health ([facility] 00:00: SUBCUTANEO FlexTouch) 00 USLY DAILY 200 UNIT/ML injection insulin 2020-0 Yes 45U 45 Units. UT degludec 03-09 Health ([facility] 00:00: FlexTouch) 00 200 UNIT/ML injection insulin 2020-0 Yes INJECT 70 UT degludec 03-09 UNITS Health ([facility] 00:00: SUBCUTANEO FlexTouch) 00 USLY DAILY 200 UNIT/ML injection insulin 2020-0 Yes INJECT 70 UT degludec 03-09 UNITS Health ([facility] 00:00: SUBCUTANEO FlexTouch) 00 USLY DAILY 200 UNIT/ML injection insulin 2020-0 Yes INJECT 70 UT degludec 03-09 UNITS Health ([facility] 00:00: SUBCUTANEO FlexTouch) 00 USLY DAILY 200 UNIT/ML injection Immunizations Ordered Immunization Filled Immunization Date Status Commen ts Source Name Name Pneumococcal Conjugate 2020-12-08 Completed [facility] PCV 13 00:00:00 Pneumococcal Conjugate 2020-12-08 Completed [facility] PCV 13 00:00:00 Pneumococcal Conjugate 2020-12-08 Completed [facility] PCV 13 00:00:00 Pneumococcal Conjugate 2020-12-08 Completed [facility] PCV 13 00:00:00 Influenza, injectable, 2020-11-26 Completed [facility] quadrivalent, 00:00:00 preservative free Influenza, injectable, 2020-11-26 Completed [facility] quadrivalent, 00:00:00 preservative free Influenza, injectable, 2020-11-26 Completed [facility] quadrivalent, 00:00:00 preservative free Influenza, injectable, 2020-11-26 Completed [facility] quadrivalent, 00:00:00 preservative free (afluria, fluarix, flulaval, fluzone) Vital Signs Vital Name Observation Time Observation Value Comments Source Systolic blood 2021-06-26 15:07:00 104 mm[Hg] [facility] Diastolic blood 2021-06-26 15:07:00 63 mm[Hg] [facility] Heart rate 2021-06-26 15:07:00 44 /min [facility] Respiratory rate 2021-06-26 15:07:00 16 /min [facility] Body height 2021-06-26 15:07:00 182.9 cm [facility] Body weight 2021-06-26 15:07:00 97.523 [facility] BMI 2021-06-26 15:07:00 29.16 kg/m2 [facility] Systolic blood 2021-03-25 16:19:00 104 mm[Hg] [facility] Diastolic blood 2021-03-25 16:19:00 65 mm[Hg] [facility] Heart rate 2021-03-25 16:19:00 77 /min [facility] Respiratory rate 2021-03-25 16:19:00 16 /min [facility] Body height 2021-03-25 16:19:00 182.9 cm [facility] Body weight 2021-03-25 16:19:00 94.348 [facility] BMI 2021-03-25 16:19:00 28.21 kg/m2 [facility] WEIGHT 2021-02-07 06:00:00 84.55 kg WEIGHT 2021-02-05 06:00:00 82.645 kg WEIGHT 2021-02-03 04:00:00 83.1 kg WEIGHT 2021-02-02 03:00:00 86.5 kg WEIGHT 2021-02-01 03:00:00 92.3 kg WEIGHT 2021-01-31 03:00:00 93.3 kg HEIGHT 2021-01-30 17:45:00 182.9 cm WEIGHT 2021-01-30 17:45:00 97.977 kg WEIGHT 2021-01-30 12:34:00 97.841 kg WEIGHT 2021-02-07 06:00:00 84.55 kg WEIGHT 2021-02-05 06:00:00 82.645 kg WEIGHT 2021-02-03 04:00:00 83.1 kg WEIGHT 2021-02-02 03:00:00 86.5 kg WEIGHT 2021-02-01 03:00:00 92.3 kg WEIGHT 2021-01-31 03:00:00 93.3 kg HEIGHT 2021-01-30 17:45:00 182.9 cm WEIGHT 2021-01-30 17:45:00 97.977 kg WEIGHT 2021-01-30 12:34:00 97.841 kg WEIGHT 2021-02-07 06:00:00 84.55 kg WEIGHT 2021-02-05 06:00:00 82.645 kg WEIGHT 2021-02-03 04:00:00 83.1 kg WEIGHT 2021-02-02 03:00:00 86.5 kg WEIGHT 2021-02-01 03:00:00 92.3 kg WEIGHT 2021-01-31 03:00:00 93.3 kg HEIGHT 2021-01-30 17:45:00 182.9 cm WEIGHT 2021-01-30 17:45:00 97.977 kg WEIGHT 2021-01-30 12:34:00 97.841 kg Systolic blood 2020-12-22 16:43:00 120 mm[Hg] UT [...] 22:30:00 128 mm[Hg] Univer sity of pressure [place] [facility] Diastolic blood 2020-04-18 22:30:00 75 mm[Hg] Unive rsity of pressure [place] [facility] Heart rate 2020-04-18 22:30:00 108 /min [facility] [place] [facility] Body temperature 2020-04-18 22:30:00 37 Johanna [facility] ers[facility] [place] [facility] Respiratory rate 2020-04-18 22:30:00 20 /min [facility] [place] [facility] Body height 2020-04-18 22:30:00 182.9 cm [facility] [place] [facility] Body weight 2020-04-18 22:30:00 99.791 kg [facility] [place] [facility] BMI 2020-04-18 22:30:00 29.84 kg/m2 [facility] [place] [facility] Oxygen saturation in 2020-04-18 22:30:00 97 /min University of Arterial blood by [facility] last Pulse oximetry Branch Body temperature 2020-04-18 22:30:00 37 Johanna [facility] [place] [facility] Respiratory rate 2020-04-18 22:30:00 20 /min [facility] [place] [facility] Body height 2020-04-18 22:30:00 182.9 cm [facility] [place] [facility] Body weight 2020-04-18 22:30:00 99.791 kg [facility] [place] [facility] BMI 2020-04-18 22:30:00 29.84 kg/m2 [facility] [place] [facility] Oxygen saturation in 2020-04-18 22:30:00 97 /min University of Arterial blood by [facility] last Pulse oximetry Branch Systolic blood 2020-04-18 22:30:00 128 mm[Hg] Univer sity of pressure [place] [facility] Diastolic blood 2020-04-18 22:30:00 75 mm[Hg] Unive rsity of pressure [place] [facility] Heart rate 2020-04-18 22:30:00 108 /min [facility] [place] [facility] Systolic blood 2020-03-06 19:07:00 132 mm[Hg] Univer sity of pressure [place] [facility] Diastolic blood 2020-03-06 19:07:00 81 mm[Hg] Unive rsity of pressure [place] [facility] Heart rate 2020-03-06 19:07:00 78 /min [facility] [place] [facility] Body temperature 2020-03-06 19:07:00 36.5 Johanna [facility] [place] [facility] Body height 2020-03-06 19:07:00 182.9 cm [facility] [place] [facility] Body weight 2020-03-06 19:07:00 97.523 kg [facility] [place] [facility] BMI 2020-03-06 19:07:00 29.16 kg/m2 [facility] [place] [facility] Oxygen saturation in 2020-03-06 19:07:00 96 /min University of Arterial blood by [employer] last Pulse oximetry Branch Systolic blood 2020-03-06 19:07:00 132 mm[Hg] Univer sity of pressure [place] [facility] Diastolic blood 2020-03-06 19:07:00 81 mm[Hg] Unive rsity of pressure [place] [facility] Heart rate 2020-03-06 19:07:00 78 /min [facility] [place] [facility] Body temperature 2020-03-06 19:07:00 36.5 Johanna [facility] [place] [facility] Body height 2020-03-06 19:07:00 182.9 cm [facility] [place] [facility] Body weight 2020-03-06 19:07:00 97.523 kg [facility] [place] [facility] BMI 2020-03-06 19:07:00 29.16 kg/m2 [facility] [place] [facility] Oxygen saturation in 2020-03-06 19:07:00 96 /min University of Arterial blood by [employer] last Pulse oximetry Branch Systolic blood 2021-02-07 15:09:00 124 mm[Hg] [facility] Diastolic blood 2021-02-07 15:09:00 72 mm[Hg] DIMITRY [facility] [place] [facility] Heart rate 2021-02-07 15:09:00 87 /min [facility] Body temperature 2021-02-07 15:09:00 36.28 Johanna [facility] Respiratory rate 2021-02-07 15:09:00 18 /min [facility] Oxygen saturation in 2021-02-07 15:09:00 95 /min [facility] Arterial blood by Medical Ce nter Pulse oximetry Body weight 2021-02-07 06:00:00 84.55 kg [facility] BMI 2021-02-07 06:00:00 25.28 kg/m2 [facility] Body height 2021-01-30 17:45:00 182.9 cm [facility] Procedures Procedure Date / Time Performing Clinician Source Performed POCT GLYCOSYLATED 2021-06-26 15:12:00 [facility]SE 2021-06-26 15:07:00 [facility] PO[facility]SE 2021-03-25 16:20:00 [facility] POCT-GLUCOSE METER 2021-02-07 10:53:00 Sar[facility]ituspolina [facility] [place] POCT-GLUCOSE METER 2021-02-07 07:27:00 [facility] [place] BASIC METABOLIC PANEL 2021-02-07 04:53:00 J Luis Rodas [facility] (7) Reshad Center MAGNESIUM 2021-02-07 04:53:00 SarbjitTituschristiano [facility] POCT-GLUCOSE METER 2021-02-06 20:28:00 [facility] POCT-GLUCOSE METER 2021-02-06 15:51:00 [facility] [place] POCT-GLUCOSE METER 2021-02-06 12:20:00 [facility] [place] POCT-GLUCOSE METER 2021-02-06 11:44:00 Sarbjit [facility] [place] POCT-GLUCOSE METER 2021-02-06 08:06:00 J Luis [facility] [place] MAGNESIUM 2021-02-06 06:45:00 [facility]ien [facility] BASIC METABOLIC PANEL 2021-02-06 06:45:00 Lucien [facility] ([address] [place] [address] POCT-GLUCOSE METER 2021-02-05 23:58:00 J Luis Rodas [facility] POCT-GLUCOSE METER 2021-02-05 17:18:00 [facility] METABOLIC PANEL 2021-02-05 16:16:00 Lucien [facility] () [facility] APTT 2021-02-05 16:16:00 [facility] POCT-GLUCOSE METER 2021-02-05 12:14:00 Titus Rodaschristiano [facility] [place] MAGNESIUM 2021-02-05 08:15:00 Lucien [facility] APTT 2021-02-05 08:15:00 [facility] POCT-GLUCOSE METER 2021-02-05 04:21:00 [facility] BASIC METABOLIC PANEL 2021-02-05 03:27:00 Mcgraw, [facility] () [facility] HEPATIC FUNCTION PANEL 2021-02-05 03:27:00 Lauri [facility] CBC W/PLT COUNT & AUTO 2021-02-05 03:27:00 Lennox Mckinney [facility] CBC W/PLT COUNT & AUTO 2021-02-05 03:27:00 Lennox Mckinney [facility] (CELLAVISION MANUAL 2021-02-05 03:27:00 Lennox Mckinney [facility] Medical DIFF) Center APTT 2021-02-05 00:25:00 [facility] SARS-COV2/RT-PCR ([facility] 2021-02-04 18:19:00 [facility] REF LABS) Center BASIC METABOLIC PANEL 2021-02-04 18:18:00 Lucien [facility] () [facility] MAGNESIUM 2021-02-04 18:18:00 [facility] POCT-GLUCOSE METER 2021-02-04 16:38:00 [facility] [place] R & L CATH / CORONARY 2021-02-04 14:40:00 [facility] Center MAGNESIUM 2021-02-04 08:58:00 [facility] POCT-GLUCOSE METER 2021-02-04 08:14:00 [facility] [place] MAGNESIUM 2021-02-04 05:39:00 Lucien [facility] BASIC METABOLIC PANEL 2021-02-04 05:39:00 [facility] () [facility] HEPATIC FUNCTION PANEL 2021-02-04 05:39:00 [facility] CBC W/PLT COUNT & AUTO 2021-02-04 05:39:00 Lennox Mckinney [facility] DIFFERENTIAL Center APTT 2021-02-04 05:39:00 Sar[facility]Lucile [facility] CBC W/PLT COUNT & AUTO 2021-02-04 05:39:00 Lennox Mckinney [facility] DIFFERENTIAL Center BASIC METABOLIC PANEL 2021-02-03 23:40:00 Lucien [facility] (7) [facility] MAGNESIUM 2021-02-03 23:40:00 Mcgraw, [facility] APTT 2021-02-03 23:40:00 Lauri [facility] POCT-GLUCOSE METER 2021-02-03 17:16:00 Titus Rodaschristiano [facility] [place] APTT 2021-02-03 14:08:00 Lauri [facility] POCT-GLUCOSE METER 2021-02-03 11:37:00 [facility] POCT-GLUCOSE METER 2021-02-03 07:02:00 Titus Rodaschristiano [facility] [place] MAGNESIUM 2021-02-03 04:25:00 [facility] BASIC METABOLIC PANEL 2021-02-03 04:25:00 [facility] ([address] [place] [address] HEPATIC FUNCTION PANEL 2021-02-03 04:25:00 Lauri [facility] CBC W/PLT COUNT & AUTO 2021-02-03 04:25:00 Lennox Mckinney [facility] APTT 2021-02-03 04:25:00 [facility] CBC W/PLT COUNT & AUTO 2021-02-03 04:25:00 Lennox Mckineny [facility] POCT-GLUCOSE METER 2021-02-02 22:36:00 J Luis [facility]as [facility] [place] MAGNESIUM 2021-02-02 18:36:00 [facility] BASIC METABOLIC PANEL 2021-02-02 18:36:00 [facility] () [facility] POCT-GLUCOSE METER 2021-02-02 16:05:00 J Luis Rodas [facility] POCT-GLUCOSE METER 2021-02-02 10:51:00 SarbjitJ Luis [facility] POCT-GLUCOSE METER 2021-02-02 07:05:00 LulaLilly [facility] MAGNESIUM 2021-02-02 03:16:00 Mcgraw, [facility] BASIC METABOLIC PANEL 2021-02-02 03:16:00 Mcgraw [facility] (7) [facility] CBC (HEMOGRAM ONLY) 2021-02-02 03:16:00 [facility] 2021-02-02 03:16:00 Lauri [facility] POCT-GLUCOSE METER 2021-02-01 20:01:00 Lula TramByronPraveena [facility] BASIC METABOLIC PANEL 2021-02-01 16:12:00 Lucien [facility] () [facility] MAGNESIUM 2021-02-01 16:12:00 Aram Marley [facility] POCT-GLUCOSE METER 2021-02-01 15:43:00 Lula HalPraveena [facility] POCT-GLUCOSE METER 2021-02-01 11:06:00 Lula TramByronPraveena [facility] APTT 2021-02-01 08:59:00 Lauri [facility] POCT-GLUCOSE METER 2021-02-01 07:19:00 Lilly Cotton [facility] BASIC METABOLIC PANEL 2021-02-01 03:12:00 [facility] ([facility] CBC (HEMOGRAM ONLY) 2021-02-01 03:12:00 Lilly Cotton [facility] HEPATIC FUNCTION PANEL 2021-02-01 03:12:00 Llily Cotton [facility] APTT 2021-02-01 03:12:00 [facility] MAGNESIUM 2021-02-01 03:12:00 Liu Pierce [facility] US RENAL COMPLETE 2021-01-31 22:53:00 KandaryRashid [facility] POCT-GLUCOSE METER 2021-01-31 20:22:00 Lilly Cotton [facility] APTT 2021-01-31 20:19:00 Lauri [facility] BASIC METABOLIC PANEL 2021-01-31 16:21:00 [facility] (7) [facility] MAGNESIUM 2021-01-31 16:21:00 [facility] POCT-GLUCOSE METER 2021-01-31 16:08:00 Lula [facility] 2D ECHO W/ DOPPLER 2021-01-31 15:01:30 [facility] (CW/PW/COLOR) [facility] APTT 2021-01-31 12:56:00 Lauri [facility] POCT-GLUCOSE METER 2021-01-31 11:32:00 Lilly Cotton [facility] POCT-GLUCOSE METER 2021-01-31 07:17:00 Lula [facility] APTT 2021-01-31 06:13:00 Lauri [facility] HC ARTERIAL(CHIQUITA W 2021-01-31 05:19:00 [facility] D[facility]ONLY Center BASIC METABOLIC PANEL 2021-01-31 03:10:00 [facility] (7) [facility] CBC (HEMOGRAM ONLY) 2021-01-31 03:10:00 Lilly Cotton [facility] HEPATIC FUNCTION PANEL 2021-01-31 03:10:00 Lilly Cotton [facility] MAGNESIUM 2021-01-31 03:10:00 Rick Parra [facility] APTT 2021-01-30 23:05:00 Lauri [facility] MAGNESIUM 2021-01-30 21:27:00 [facility] BASIC METABOLIC PANEL 2021-01-30 21:27:00 Rick Parra [facility] (7) [place] POCT-GLUCOSE METER 2021-01-30 20:37:00 Ankur CottonsatyaByronPraveena [facility] POCT-GLUCOSE METER 2021-01-30 17:53:00 Hal Cotton[facility] APTT 2021-01-30 16:28:00 [facility] SODIUM, RANDOM URINE 2021-01-30 14:37:00 [facility] PROTEIN, RANDOM URINE 2021-01-30 14:37:00 [facility] MICROALBUMIN, RANDOM 2021-01-30 14:37:00 [facility] URINE [place] CREATININE, RANDOM 2021-01-30 14:37:00 [facility] UREA NITROGEN, RANDOM 2021-01-30 14:37:00 [facility] URINE [place] URINALYSIS WITH 2021-01-30 14:37:00 [facility] MICROSCOPIC IF Center INDICATED URINALYSIS MICROSCOPIC 2021-01-30 14:37:00 [facility] BASIC METABOLIC PANEL 2021-01-30 14:29:00 Lucien [facility] () [facility] MAGNESIUM 2021-01-30 14:29:00 [facility] HEPATITIS PANEL, ACUTE 2021-01-30 14:29:00 [facility] HC LAB HIV-1 AG 2021-01-30 14:29:00 [facility] W/HIV-1&2 AB Center HEMOGLOBIN A1C 2021-01-30 14:29:00 [facility] LACTIC ACID, VENOUS 2021-01-30 14:29:00 Shanelle [facility] ECG 12-LEAD 2021-01-30 12:12:31 Lucien [facility] POCT-GLUCOSE METER 2021-01-30 11:45:00 LulaLilly [facility] POCT-GLUCOSE METER 2021-01-30 07:58:00 Lilly Cotton [facility] CBC W/PLT COUNT & AUTO 2021-01-30 04:16:00 Lucien [facility] DIFFERENTIAL [facility] BASIC METABOLIC PANEL 2021-01-30 04:16:00 Lucien [facility] (7) [facility] HEPATIC FUNCTION PANEL 2021-01-30 04:16[facility]00 [facility]/INR 2021-01-30 04:16:00 Lucien [facility] LIPID PANEL 2021-01-30 04:16:00 Lucien [facility] MAGNESIUM 2021-01-30 04:16:00 Lucien [facility] PHOSPHORUS 2021-01-30 04:16:00 Lucien [facility] CBC W/PLT COUNT & AUTO 2021-01-30 04:16:00 Lucien [facility] DIFFERENTIAL [facility] LIPASE 2021-01-30 04:16:00 Lucien [facility] B-TYPE NATRIURETIC 2021-01-30 04:16:00 [facility] FACTOR (BNP) [facility] LACTIC ACID, VENOUS 2021-01-30 04:16:00 Lucien [facility] UREA NITROGEN, RANDOM 2021-01-29 23:50:00 [facility] CREATININE, RANDOM 2021-01-29 23:50:00 Jaclyn Mcgraw [facility] URINE [facility] XR CHEST 1 VIEW 2021-01-29 22:27:00 Jaclyn Mcgraw [facility] PORTABLE / BEDSIDE [facility] POCT-GLUCOSE METER 2021-01-29 21:57:00 Les Culverlinda [facility] CARDIAC CATH REPORT - 2021-01-29 00:00:00 Provider, Default [facility] SCAN Scanning Center EKG-SCANNED 2021-01-29 00:00:00 Provider, Default [facility] Medical Scanning [place] VASCULAR DIAGRAM -SCAN 2021-01-29 00:00:00 Provider, Default [facility] POCT GLYCOSYLATED 2020-12-22 17:02:00 [facility] H[facility]GLOBIN [facility]GB A[facility]C) [facility] PO[facility] GLUCOSE 2020-12-22 16:58:00 [facility] POCT GLUCOSE 2020-09-01 16:25:00 [facility] POCT GLYCOSYLATED 2020-09-01 16:25:00 [facility] HEMOGLOBIN (HGB A1C) POCT FLU A AND B 2020-03-06 19:33:00 Estela Prasad [facility] (MOLECULAR) [facility] POCT GRP A STREP 2020-03-06 19:27:00 Estela Prasad [facility] ([facility]) [facility] Plan of Care Planned Activity Planned Date Details Comments Source Future Scheduled Test 2024-01-31 Lipid panel [facility] 00:00:00 (procedure) [code = Medical Center 23213189] Future Scheduled Test 2022-01-30 Urine screening for [facility] 00:00:00 protein (procedure) [facility] [code = 402376842] Future Scheduled Test 2021-12-08 PNEUMOCOCCAL VACCINE [facility] 00:00:00 0-64 YRS (2 - PPSV23 Medical Center or PCV20) [code = PNEUMOCOCCAL VACCINE 0-64 YRS (2 - PPSV23 or PCV20)] Future Scheduled Test 2021-10-08 INFLUENZA VACCINE (#1) [facility] 00:00:00 [code = INFLUENZA Medical Ce nter VACCINE (#1)] Future Scheduled Test [address] [facility] 00:00:00 measurement Medical Center (procedure) [code = 13994625] Future Scheduled Test 2021-02-[address] [facility] 00:00:00 (12+) [code = Medical Center DEPRESSION SCREENING (12+)] Future Scheduled Test 2017-12-[address] [facility] 00:00:00 WELLNESS (YEAR 2 or Medical Center FIRST YEAR if no IPPE) [code = MEDICARE ANNUAL WELLNESS (YEAR 2 or FIRST YEAR if no IPPE)] Future Scheduled Test 2010 SHINGLES VACCINES ([address] [facility] 00:00:00 of 2) [code = SHINGLES Medic al Center VACCINES (1 of 2)] Future Scheduled Test 1979-08-01 DTAP/TDAP/TD VACCINES [facility] 00:00:00 (1 - Tdap) [code = Medical C enter DTAP/TDAP/TD VACCINES (1 - Tdap)] Future Scheduled Test 1970 DIABETIC EYE EXAM [facility] 00:00:00 [code = DIABETIC EYE Medical Center EXAM] Future Scheduled Test 1970 Diabetic foot [facility] examination Medical Center (regime/therapy) [code = 519084284] Future Scheduled Test 1961-01-30 COVID-19 VACCINE (#1) [facility] 00:00:00 [code = COVID-[address] VACCINE (#1)] Future Scheduled Test [address] [facility] 00:00:00 (combo) [code = CT Medical C enter Colonography (combo)] Future Scheduled Test 1960 Screening for [facility] 00:[facility]:00 malignant neoplasm of Medica l Center colon (procedure) [code = 409067991] Future Scheduled Test 1960 Screening for [facility] 00:[facility]:00 malignant neoplasm of Medica l Center colon (procedure) [code = 448048651] Future Scheduled Test 1960 [facility] for [facility] 00:[facility]:00 malignant neoplasm of Medica l Center colon (procedure) [code = 617815039] Future Scheduled Test 1960 [facility] for [facility] 00:[facility]:00 malignant neoplasm of [facility] colon (procedure) [code = 268020823] Future Scheduled Test 1960 Sigmoidoscopy [code = [facility] 00:00:00 Sigmoidoscopy] Medical Cente r Future Appointment 2021-11-06 Toribio Gregory MD, [address] [facility] 07:30:[address]; [address] [facility], [place] [id number] Future Appointment 2021-10-23 Toribio Gregory MD, [address] [facility] 10:51:[address]; [address] Medica l [facility], [place] [address] Future Appointment 2021-11-06 Toribio Gregory MD, [address] [facility] 07:30:[address]; [address] Medica l [facility], [place] [address] Future Appointment 2021-10-23 Toribio Gregory MD, [address] [facility] 10:51:[address] [address] [facility], [place] [id number] Procedure 2021-11-06 ANGIOPLASTY, ARTERY, [facility] 07:30:00 [facility] Procedure 2021-10-23 ANGIOPLASTY, ARTERY, [facility] 10:51:00 [facility] Encounters Start End Encounter Admission Attending Care Care Encounter Source Date/Time Date/Time Type Type Clinicians Facility Department ID 2021-10-08 Outpatient FREDERICK LYLES Surgery [id number] [facility] 14:54:49 TORIBIO 2021-10-08 Outpatient FREDERICK LYLES Surgery [id number] [facility] 14:53:34 TORIBIO 2021-06-29 Outpatient [facility] [id number] [place] 08:25:25 [id number] [facility] 2021-06-26 Outpatient LYNNE, [facility] [id number] [place] 09:53:55 REINA [id number] [facility] 2021-10-07 2021-10-07 Outpatient UYEN GREGORY [id number] [facility] 11:11:25 11:35:52 TORIBIO [facility] 2021-09-16 2021-10-06 Outpatient UYEN QIU [id number] [facility] 08:55:36 19:42:58 [facility] 2021-06-26 2021-06-26 Office Lynne, UTP 6410 1.2.840.114 [id number] [place] 10:00:00 10:23:[address] [id number] Health [facility] 9.2.7.2.686 [id number] 2021-04-29 2021-04-29 Refandreas Rodas [facility] [id number] 00:00:00 00:00:00 [facility] 2021-03-25 2021-03-25 Office Lynne, UTP 6410 1.2.840.114 [id number] [place] 10:00:00 11:02:[address] [id number] Health [facility] 9.2.7.2.686 [id number] 3 2021-03-05 2021-03-05 Telephone Luann Nelson UTP 6410 1.2.840.1 [id number] [place] 00:00:00 00:00:[address] [id number] Health 9.2.7.2.686 [id number] 3 2021-03-01 2021-03-01 Refandreas Rodas [facility] [id number] 00:00:00 00:00:00 [facility] 2021-02-25 2021-02-25 [facility] [id number] 00:00:00 00:00:00 [facility] 2021-01-29 2021-02-07 [facility] Jodee Carmona [facility] [id number] 18:52:00 16:16:00 Encounter Fidelina Culver [facility] 2021-01-29 2021-02-07 Inpatient ER SARBJIT, [facility] Gastro [id number] [facility] 18:52:00 16:16:00 [facility] 2021-02-04 2021-02-04 Surgery [facility], [facility] [id number] 15:10:00 16:37:00 [facility] 2021-01-30 2021-01-30 Outpatient [facility] [id number] [facility] 00:00:00 23:59:00 [facility] Medicin [facility] 2021-01-29 2021-01-29 Travel [facility] [id number] [facility] 00:00:00 00:00:00 [facility] 2020-12-22 2020-12-22 Office Lynne UTP 6410 1.2.840.114 [id number] [place] 10:30:57 11:40:[address] [id number] Health [facility] 9.2.7.2.686 [id number] 2020-11-24 2020-11-24 Orders Luann Nelson UTP 6410 1.2.840.114 [id number] [place] 00:00:00 00:00:[address] 350.1.13.58 Health 9.2.7.2.686 [id number] 3 2020-11-24 2020-11-24 Orders Luann Nelson UTP 6410 1.2.840.114 [id number] [place] 00:00:00 00:00:[address] 350.1.13.58 Health 9.2.7.2.686 [id number] 3 2020-10-17 2020-10-17 Refill Lindawilfredo, UTP 1.2.840.114 [id number] [place] 00:00:00 00:00:00 Reina SWEENEYE 350.1.13.58 Health [facility] 9.2.7.2.686 [facility] [id number] 2020-10-14 2020-10-14 Telephone Bárbara Zaidi UTP 6410 1.2.840 .114 [id number] [place] 00:00:00 00:00:[address] 350.1.13.58 Health 9.2.7.2.686 [id number] 3 2020-10-01 2020-10-01 Refill Lynne, UTP 6410 1.2.840.114 [id number] [place] 00:00:00 00:00:00 Reina WIGGINS 350.1.13.58 Health Eberechi 9.2.7.2.686 [id number] 3 2020-09-01 2020-09-01 Office Patricia UTP 6410 1.2.029.473 [id number] [place] 11:06:36 12:11:09 Visit Reina WIGGINS 350.1.13.58 Health 9.2.7.2.686 [id number] 3 2020-08-25 2020-08-25 Refill JIMY Gomez 1.2.840.114 [id number] [place] 00:00:00 00:00:00 Reina RUANO 350.1.13.58 Health MEDICAL 9.2.7.2.686 BUILDING [id number] 2020-07-25 2020-07-25 Refill JIMY Gomez 1.2.840.114 [id number] [place] 00:00:00 00:00:00 Reina RUANO 350.1.13.58 Health MEDICAL 9.2.7.2.686 [facility] [id number] 2020-04-18 2020-04-18 Outpatient R MADY [facility] [id number] [facility] 19:45:00 19:45:00 JENNIFER bronson [facility] 2020-04-18 2020-04-18 Nurse Nurse, [facility] 1.2 .840.114 [id number] [facility] 18:25:50 18:40:50 Visit Jennifer Vanessa [facility] 350.1.13.10 ity of [place] 4.2.7.2.686 Ameya as Huong [id number] [address] Office [address] One 2020-04-18 2020-04-18 Urgent Jennifer Vanessa [facility] 1.2.840 .114 [id number] [facility] 16:20:00 16:40:00 Care Vernell Galindo [facility] 350.1.13.10 [place] 4.2.7.2.686 Ameya as Professio [phone] Ma dical [address] Office Building One 2020-04-18 2020-04-18 Outpatient [facility] [id number] Univers 16:20:00 16:20:00 [id number] ity [facility] 2020-04-18 2020-04-18 Outpatient R [facility] [id number] Univers 16:20:00 16:20:00 ity [facility] 2020-03-06 2020-03-06 Urgent Provider, [facility] 1.2.983.182 [id number] 12:59:17 13:19:17 Care [facility] 350.1.13.10 Care [place] 4.2.7.2.686 Professio [id number] [place] [address] [address] One 2020-03-06 2020-03-06 Urgent Provider, [facility] 1.2.840.114 [id number] Univers 12:59:17 13:19:17 Care Unknown, Attending Health 350.1.13.10 ity of [place] Prasad [place] 4.2.7.2.686 [place] Professio [phone] Ma dical [address] Office Building One 2020-03-06 2020-03-06 Outpatient R OSMAR [facility] [id number] Univers 13:00:00 13:00:00 ESTELA [facility] Results Test Description Test Time Test Comments Results Result Comments Source POCT glycosylated hemoglobin (Hb A1C) docked device 15:12:00 Test Item Value Reference Range Interpretation Comme nts Hemoglobin A1C (test code = 4548-4) 7.8 % 4.0-6.0 A Lab Interpretation (test code = 92430-2) [facility]normal [facility] [id number] 15:07:00 Test Item Value Reference Range Interpretation Comments Glucose Blood, POC (test code = 193 mg/dL 70-180 A 5808122) Lab Interpretation (test code = Abnormal 41412-4) [facility] manually [id number] 16:20:00 Test Item Value Reference Range Interpretation Comments Glucose Blood, POC (test code = 162 mg/dL 70-070 2915461) [facility]-Glucose [id number] 11:15:39 Test Item Value Reference Range Interpretation Comments POC-Glucose Meter (test 329 mg/dL 70-110 H : TE STED AT [facility] code = 1538) [address] [facility] [place], 770 30: [employer]/Techni meaghan ID = [id number] for QUEEN JAIME Lab Interpretation (test Abnormal code = 78139-2) [facility] [id number] 11:15:39 Test Item Value Reference Range Interpretation Comments POC-GLUCOSE METER 329 mg/dL 70-110 H : [facility] ([facility] (test code = [facility], 1538) [address]: [employer]/Techni meaghan ID = [id number] for QUEEN DOUGLAS POCT-GLUCOSE [id number] 07:39:47 Test Item Value Reference Range Interpretation Comments POC-GLUCOSE METER 134 mg/dL 70-110 H : [facility] ([facility] (test code = [facility], 1538) [address]23[address]: [employer]/Techni meaghan ID = [id number] for QUEEN DOUGLAS Basic Metabolic [id number] 05:20:42 Test Item Value Reference Range Interpretation Comments Sodium (test code = 130 meq/L 136-145 L 2951-2) Potassium (test code = 4.3 meq/L 3.5-5.1 Speci men slightly 2823-3) hemolyzed Chloride (test code = 99 meq/L 98-107 2075-0) CO2 (test code = 24 meq/L 22-29 2028-9) BUN (test code = 48 mg/dL 7-21 H 3094-0) Creatinine (test code 1.44 mg/dL 0.57-1.25 H Specim en slightly = 2160-0) hemolyzed Glucose (test code = 141 mg/dL 70-105 H 2345-7) Calcium (test code = 8.9 mg/dL 8.4-10.2 65917-0) EGFR (test code = 50 mL/min/1.73 [place] [address]-7) NOT ACCURATE CREATININE CLEARANCE IN PREDICTING GLOMERULAR FILTRATION RATE . ESTIMATED GFR I S NOT APPLICABLE FOR DIALYSIS PATIENTS. JEFF (test code = JEFF) [employer] ID Byron Au Lab Interpretation Abnormal (test code = 71883-0) [facility] [id number] 05:20:42 Test Item Value Reference Range Interpretation Comments SODIUM (BEAKER) 130 meq/L 136-145 L (test code = 381) POTASSIUM (BEAKER) 4.3 meq/L 3.5-5.1 Specimen slightly (test code = 379) hemolyzed CHLORIDE (BEAKER) 99 meq/L 98-107 (test code = 382) CO2 (BEAKER) (test 24 meq/L 22-29 code = 355) BLOOD UREA NITROGEN 48 mg/dL 7-21 H (BEAKER) (test code = 354) CREATININE (BEAKER) 1.44 mg/dL 0.57-1.25 H Specimen slightly (test code = 358) hemolyzed GLUCOSE RANDOM 141 mg/dL 70-105 H (BEAKER) (test code = 652) CALCIUM (BEAKER) 8.9 mg/dL 8.4-10.2 (test code = 697) EGFR (BEAKER) (test 50 mL/min/1.73 ESTIMA CHINEDU GFR IS code = 1092) sq m NOT ACCURATE CREATININE CLEARANCE IN PREDICTING GLOMERULAR FILTRATION RATE . ESTIMATED GFR I S NOT APPLICABLE FOR DIALYSIS PATIEN TS. [employer] ID Byron LEMA [id number] 05:20:41 Test Item Value Reference Range Interpretation Comments Magnesium (test code = 2.1 mg/dL 1.6-2.6 Speci men 06523-2) slightly hemolyzed JEFF (test code = JEFF) [employer] ID Byron Au Lab Interpretation Normal (test code = 90344-0) [facility]-01 05:20:41 Test Item Value Reference Range Interpretation Comments MAGNESIUM (BEAKER) 2.1 mg/dL 1.6-2.6 Specimen slightly (test code = 627) hemolyzed [employer] BC LEMA MPOCT-GLUCOSE [id number] 20:42:47 Test Item Value Reference Range Interpretation Comments POC-GLUCOSE METER 294 mg/dL 70-110 H : Notified RN/MD: (ALIYA) (test code = TESTED AT [facility] 5990 5609) [facility], [address]: [employer]/Techni meaghan ID = [id number] for HERBERTH YOU POCT-GLUCOSE [id number] 16:02:29 Test Item Value Reference Range Interpretation Comments POC-GLUCOSE METER 283 mg/dL 70-110 H : TESTED A T [facility] 6720 (BEAKER) (test code = [facility], 1538) [address]: [employer]/Techni meaghan ID = [id number] for Wh ite (contract), Kyle ert POCT-GLUCOSE [id number] 12:31:55 Test Item Value Reference Range Interpretation Comments POC-GLUCOSE METER 254 mg/dL 70-110 H : TESTED A T [facility] 6720 (BEAKER) (test code = [facility], 153) [address]: [employer]/Techni meaghan ID = [id number] for Wh ite (contract), Kyle ert POCT-GLUCOSE [id number] 11:58:01 Test Item Value Reference Range Interpretation Comments POC-GLUCOSE METER 259 mg/dL 70-110 H : TESTED A T [facility] 6720 (BEAKER) (test code = [facility], 153) [address]: [employer]/Techni meaghan ID = [id number] for HIPOLITO ISRock (V) SUEOLGA POCT-GLUCOSE [id number] 08:29:43 Test Item Value Reference Range Interpretation Comments POC-GLUCOSE METER 131 mg/dL 70-110 H : TESTED A T [facility] 6720 (BEAKER) (test code = [facility], 1538) 160[address]: [employer]/Techni meaghan ID = [id number] for Wh ite (contract), Kyle ert [id number] 07:32:32 Test Item Value Reference Range Interpretation Comments MAGNESIUM (BEAKER) 2.2 mg/dL 1.6-2.6 Specimen slightly (test code = 627) hemolyzed [employer] ID - EVERARDO LBASIC METABOLIC [id number] 07:32:32 Test Item Value Reference Range Interpretation Comments SODIUM (BEAKER) 132 meq/L 136-145 L (test code = 381) POTASSIUM (BEAKER) 4.2 meq/L 3.5-5.1 Specimen slightly (test code = 379) hemolyzed CHLORIDE (BEAKER) 97 meq/L 98-107 L (test code = 382) CO2 (BEAKER) (test 27 meq/L 22-29 code = 355) BLOOD UREA NITROGEN 45 mg/dL 7-21 H (BEAKER) (test code = 354) CREATININE (BEAKER) 1.63 mg/dL 0.57-1.25 H Specimen slightly (test code = 358) hemolyzed GLUCOSE RANDOM 139 mg/dL 70-105 H (BEAKER) (test code = 652) CALCIUM (BEAKER) 9.1 mg/dL 8.4-10.2 (test code = 697) EGFR (BEAKER) (test 43 mL/min/1.73 ESTIMA CHINEDU GFR IS code = 1092) sq m NOT ACCURATE CREATININE CLEARANCE IN PREDICTING GLOMERULAR FILTRATION RATE . ESTIMATED GFR I S NOT APPLICABLE FOR DIALYSIS PATIEN TS. [employer] ID - PIAYA LPOCT-GLUCOSE [id number] 00:11:36 Test Item Value Reference Range Interpretation Comments POC-GLUCOSE METER 183 mg/dL 70-110 H : TESTED A T [facility] 6720 (BEAKER) (test code = [facility], 153) [address]: [employer]/Techni meaghan ID = [id number] for TAMMI DOUGLAS POCT-GLUCOSE [id number] 18:12:54 Test Item Value Reference Range Interpretation Comments POC-GLUCOSE METER 215 mg/dL 70-110 H : TESTED A T [facility] 6720 (BEAKER) (test code = [facility], 153) [address]: [employer]/Techni meaghan ID = [id number] for DANGELO MARQUES BASIC METABOLIC [id number] 16:48:45 Test Item Value Reference Range Interpretation Comments SODIUM (BEAKER) 127 meq/L 136-145 L (test code = 381) POTASSIUM (BEAKER) 4.4 meq/L 3.5-5.1 Specimen slightly (test code = 379) hemolyzed CHLORIDE (BEAKER) 96 meq/L 98-107 L (test code = 382) CO2 (BEAKER) (test 24 meq/L 22-29 code = 355) BLOOD UREA NITROGEN 43 mg/dL 7-21 H (BEAKER) (test code = 354) CREATININE (BEAKER) 1.72 mg/dL 0.57-1.25 H Specimen slightly (test code = 358) hemolyzed GLUCOSE RANDOM 230 mg/dL 70-105 H (BEAKER) (test code = 652) CALCIUM (BEAKER) 8.8 mg/dL 8.4-10.2 (test code = 697) EGFR (BEAKER) (test 41 mL/min/1.73 ESTIMA CHINEDU GFR IS code = 1092) sq m NOT ACCURATE CREATININE CLEARANCE IN PREDICTING GLOMERULAR FILTRATION RATE . ESTIMATED GFR I S NOT APPLICABLE FOR DIALYSIS PATIEN TS. [employer] ID - EVERARDO [id number] 16:38:42 Test Item Value Reference Range Interpretation Comments PTT (test code = 103.3 See_Comment H [Automated message] 42465-4) The system [employer] generated this result transmitted ref erence range: 22.5 - 3 6.0 seconds. The reference range was not used to int erpret this result as normal/abnormal . Lab Interpretation (test Abnormal code = 02120-6) [place] [id number] 16:38:42 Test Item Value Reference Range Interpretation Comments PARTIAL THROMBOPLASTIN TIME 103.3 seconds 22.5-36.0 H (BEAKER) (test code = 760) POCT-GLUCOSE [id number] 12:42:10 Test Item Value Reference Range Interpretation Comments POC-GLUCOSE METER 288 mg/dL 70-110 H : TESTED A T [facility] 6720 (BEAKER) (test code = [place], 1538) [address]: [employer]/Techni meaghan ID = [id number] for DANGELO MARQUES SARS-CoV2/RT-PCR (Asymptomatic ONLY)2021-02-05 11:07:01 Test Item Value Reference Range Interpretation Comments SARS-COV2/RT-PCR (test Negative Negative code = 77324-2) JEFF (test code = JFEF) Negative result for this test determines that SARS-CoV-2 RNA was not present in the specimen above the Limit of Detection (LOD). However, Negative results do not preclude SARS-CoV-2 infection and should not be used as the sole basis for treatment or patient management decisions. Negative results must be combined with clinical observations, patient history, and epidemiological information. A false negative result may occur if a specimen is improperly collected, transported, or handled. A false negative result should be considered if patient's recent exposures or clinical presentation indicate that COVID-19 (SARS-CoV-2) is likely and diagnostic tests for other causes of illness are negative. Re-testing should be considered in cases of suspected false negatives. The limit of detection for this assay is 100 copies/mL. This SARS-CoV-2 test is a real-time RT_PCR test intended for the qualitative detection of nucleic acid from SARS-CoV-2 in a nasopharyngeal swab specimen collected from individuals suspected of COVID-19 by their healthcare provider. This test has not been Food and Drug Administration (FDA) cleared or approved. This is a modified version of an approved Emergency Use Authorization (EUA) and is in the process of review by the FDA. Once authorized by the FDA, the issued EUA will be effective until the declaration that circumstances exist justifying the authorization of the emergency use of in vitro diagnostic tests for detection and/or diagnosis of COVID-19 is terminated under Section 564(b)(2) of the Act or the EUA is revoked under Section 564(g) of the Act. Testing was performed using the [employer] SARS-CoV-2 assay. Fact Sheet for Healthcare Providers:https://www.cesar chu/ginny/RT SARS-CoV-2 HCP Fact Sheet 51-991829.pdf Fact Sheet for Healthcare Patients:https://www.jazmín [place] Youboy NetworkrubensVolly/ginny/RT SARS-CoV-2 Patient Fact Sheet EN 51-859807M0.pdf Lab Interpretation Normal (test code = 75788-6) [facility])2021-02-05 11:07:01 Test Item Value Reference Range Interpretation Comments SARS-COV2/RT-PCR (test code = Negative Negative 8346686) Negative result for this test determines that SARS-CoV-2 RNA was not present in the specimen above the Limit of Detection (LOD). However, Negative results do not preclude SARS-CoV-2 infection and should not be used as the sole basis for treatment or patient management decisions. Negative results must be combined with clinical observations, patient history, and epidemiological information. A false negative result may occur if a specimen is improperly collected, transported, or handled. A false negative result should be considered if patient's recent exposures or clinical presentation indicate that COVID-19 (SARS-CoV-2) is likely and diagnostic tests for other causes of illness are negative. Re-testing should be considered in cases of suspected false negatives.The limit of detection for this assay is 100 copies/mL.This SARS-CoV-2 test is a real-time RT_PCR test intended for the qualitative detection of nucleic acid from SARS-CoV-2 in a nasopharyngeal swab specimen collected from individuals suspected of COVID-19 by their healthcare provider.This test has not been Food and Drug Administration (FDA) cleared or approved. This is a modified version of an approved Emergency Use Authorization (EUA) and is in the process of review by the FDA. Once authorized by the FDA, the issued EUA will be effective until the declaration that circumstances exist justifying the authorization of the emergency use of in vitro diagnostic tests for detection and/or diagnosis of COVID-19 is terminated under Section 564(b)(2) of the Act or the EUA is revoked under Section 564(g) of the Act.Testing was performed using [employer] SARS-CoV-2 assay.Fact Sheet for Healthcare Providers:https://www.RealDirect.CoinHoldings/ginny/RT SARS-CoV-2 HCP Fact Sheet 51- 107716.pdfFact Sheet for Healthcare Patients:https://www.RealDirect.faulkner/ginny/RT SARS-CoV-2 Patient Fact Sheet EN 51-524408J1.yzqYKYQ2794-95-77 09:04:03 Test Item Value Reference Range Interpretation Comments PARTIAL THROMBOPLASTIN TIME 67.6 seconds 22.5-36.0 H (BEAKER) (test code = 760) [id number] 08:45:19 Test Item Value Reference Range Interpretation Comments MAGNESIUM (BEAKER) 2.2 mg/dL 1.6-2.6 Specimen slightly (test code = 627) hemolyzed [employer] ID - PIAYA LManual [id number] 07:30:32 Test Item Value Reference Range Interpretation Comments % Neutros (test code = 73 % 2815) % Lymphs (test code = 6 % 2817) % Monos (test code = 11 % 8) % Eos (test code = 8 % 9) % Bands (test code = 1 % 0-10 6) % Atypical Lymphs (test 1 % 0-0 H code = 2829) # Neutros (test code = 8.54 K/ul 1.78-5.38 H 2830) # Lymphs (test code = 0.70 K/ul 1.32-3.57 L 2831) # Monos (test code = 1.29 K/uL 0.30-0.82 H 2832) # Eos (test code = 0.94 K/uL 0.04-0.54 H 2834) # Bands (test code = 0.12 K/uL 0.00-0.80 2840) # Atypical Lymphs (test 0.12 K/uL 0.00-0.00 H code = 2858) Total Counted (test 100 code = 1351) WBC Morphology (test Normal code = 487) Platelet Morphology Normal (test code = 486) Polychromasia (test 2+ moderate code = 478) Anisocytosis (test code 1+ few = 961) Macrocytes (test code = 1+ few 964) Poikilocytes (test code 3+ many = 966) Schistocytes (test code 1+ few = 765) [place] Cells (test code = 3+ many 474) Artifact (test code = Present 3432) Helmet Cells (test code 1+ few = 3434) Platelet Conc (test Adequate code = 3438) JEFF (test code = JEFF) [employer] ID - Jodee Saravia comments: Slide comments: Lab Interpretation Abnormal (test code = 64638-3) [facility](CELLAVISION MANUAL DIFF)2021-02-05 07:30:32 Test Item Value Reference Range Interpretation Comments NEUTROPHILS - REL 73 % (CELLAVISION)(BEAKER) (test code = 2816) LYMPHOCYTES - REL 6 % (CELLAVISION)(BEAKER) (test code = 2817) MONOCYTES - REL 11 % (CELLAVISION)(BEAKER) (test code = 2818) EOSINOPHILS - REL 8 % (CELLAVISION)(BEAKER) (test code = 2819) BANDS - REL (CELLAVISION)(BEAKER) 1 % 0-10 (test code = 2826) ATYPICAL LYMPHOCYTES - REL 1 % 0-0 H (CELLAVISION)(BEAKER) (test code = 2829) NEUTROPHILS - ABS 8.54 K/ul 1.78-5.38 H (CELLAVISION)(BEAKER) (test code = 2830) LYMPHOCYTES - ABS 0.70 K/ul 1.32-3.57 L (CELLAVISION)(BEAKER) (test code = 2831) MONOCYTES - ABS 1.29 K/uL 0.30-0.82 H (CELLAVISION)(BEAKER) (test code = 2832) EOSINOPHILS - ABS 0.94 K/uL 0.04-0.54 H (CELLAVISION)(BEAKER) (test code = 2834) BANDS - ABS (CELLAVISION)(BEAKER) 0.12 K/uL 0.00-0.80 (test code = 2840) ATYPICAL LYMPHOCYTES - ABS 0.12 K/uL 0.00-0.00 H (CELLAVISION)(BEAKER) (test code = 2858) TOTAL COUNTED (BEAKER) (test code 100 = 1351) WBC MORPHOLOGY (BEAKER) (test Normal code = 487) PLT MORPHOLOGY (BEAKER) (test Normal code = 486) POLYCHROMATOPHILLIC RBCS(BEAKER) 2+ moderate (test code = 478) ANISOCYTOSIS (BEAKER) (test code 1+ few = 961) MACROCYTES (BEAKER) (test code = 1+ few 964) POIKILOCYTES (BEAKER) (test code 3+ many = 966) SCHISTOCYTES (BEAKER) (test code 1+ few = 765) MARGA CELLS (BEAKER) (test code = 3+ many 474) ARTIFACT (CELLAVISION)(BEAKER) Present (test code = 3432) HELMET CELLS 1+ few (CELLAVISION)(BEAKER) (test code = 3434) PLATELET CONCENTRATION Adequate (CELLAVISION)(BEAKER) (test code = 3438) [employer] ID - Jodee Saravia comments: Slide comments:CBC with platelet count + automated [id number] 07:30:31 Test Item Value Reference Range Interpretation Comments WBC (test code = 6690-2) 11.7 See_Comment H [A utomated message] The system [employer] generated this result transmitted ref erence range: 3.5 - 10 .5 K/L. The refe rence range was not u sed to interpret this result as normal/abnor mal. RBC (test code = 789-8) 5.22 See_Comment [Au tomated message] The system [employer] generated this result transmitted ref erence range: 4.63 - 6 .08 M/L. The refe rence range was not u sed to interpret this result as normal/abnor mal. MCHC (test code = 786-4) 30.7 See_Comment L [A utomated message] The system [employer] generated this result transmitted ref erence range: 32.3 - 3 6.5 GM/DL. The refe rence range was not u sed to interpret this result as normal/abnor mal. Hematocrit (test code = 44.3 % 40.1-51.0 4544-3) MCV (test code = 787-2) 84.9 fL 79.0-92.2 MCH (test code = 785-6) 26.1 pg 25.7-32.2 RDW (test code = 788-0) 18.8 % 11.6-14.4 H Platelets (test code = 286 See_Comment [Aut omated message] 777-3) The system [employer] generated this result transmitted ref erence range: 150 - 45 0 K/CU MM. The referen ce range was not u sed to interpret this result as normal/abnor mal. MPV (test code = 11.2 fL 9.4-12.4 38757-6) nRBC (test code = 413) 0 See_Comment [Aut omated message] The system [employer] generated this result transmitted ref erence range: 0 - 0 /1 00 WBC. The refere nce range was not u sed to interpret this result as normal/abnor mal. Lab Interpretation (test Abnormal code = 74071-3) [facility] W/PLT COUNT & AUTO [id number] 07:30:31 Test Item Value Reference Range Interpretation Comments WHITE BLOOD CELL COUNT (BEAKER) 11.7 K/ L 3.5-10.5 H (test code = 775) RED BLOOD CELL COUNT (BEAKER) 5.22 M/ L 4.63-6.08 (test code = 761) HEMOGLOBIN (BEAKER) (test code = 13.6 GM/DL 13.7-17.5 L 410) HEMATOCRIT (BEAKER) (test code = 44.3 % 40.1-51.0 411) MEAN CORPUSCULAR VOLUME (BEAKER) 84.9 fL 79.0-92.2 (test code = 753) MEAN CORPUSCULAR HEMOGLOBIN 26.1 pg 25.7-32.2 (BEAKER) (test code = 751) MEAN CORPUSCULAR HEMOGLOBIN CONC 30.7 GM/DL 32.3-36.5 L (BEAKER) (test code = 752) RED CELL DISTRIBUTION WIDTH 18.8 % 11.6-14.4 H (BEAKER) (test code = 412) PLATELET COUNT (BEAKER) (test 286 K/CU MM 150-450 code = 756) MEAN PLATELET VOLUME (BEAKER) 11.2 fL 9.4-12.4 (test code = 754) NUCLEATED RED BLOOD CELLS 0 /100 WBC 0-0 (BEAKER) (test code = 413) POCT-GLUCOSE [id number] 04:33:03 Test Item Value Reference Range Interpretation Comments POC-GLUCOSE METER 171 mg/dL 70-110 H : TESTED A T [facility] (BEAKER) (test code = [place], 1538) [address]: [employer]/Techni meaghan ID = [id number] for Ri arin, Antonio Hepatic function [id number] 04:17:08 Test Item Value Reference Range Interpretation Comments Protein, Total (test 6.7 See_Comment [Autom ated code = 2885-2) message] The system which generated this result transmitted reference range : 6.0 - 8.3 gm/dL . The reference range was not used to interpr et this result as normal/abnormal . Albumin (test code = 3.2 g/dL 3.5-5.0 L 29775-8) Total Bilirubin (test 2.3 mg/dL 0.2-1.2 H code = 1974-2) Bilirubin, Direct 1.6 mg/dL 0.1-0.5 H (test code = 1967-7) Alkaline Phosphatase 75 U/L 40-150 (test code = 6768-6) AST (test code = 58 U/L 5-34 H 1920-8) ALT (test code = 153 U/L 6-55 H 1742-6) JEFF (test code = JEFF) [employer] ID - EVERARDO Urrutian slightly icteric Lab Interpretation Abnormal (test code = 15447-0) [facility] [id number] 04:17:08 Test Item Value Reference Range Interpretation Comments SODIUM (BEAKER) 132 meq/L 136-145 L (test code = 381) POTASSIUM (BEAKER) 4.2 meq/L 3.5-5.1 (test code = 379) CHLORIDE (BEAKER) 97 meq/L 98-107 L (test code = 382) CO2 (BEAKER) (test 28 meq/L 22-29 code = 355) BLOOD UREA NITROGEN 32 mg/dL 7-21 H (BEAKER) (test code = 354) CREATININE (BEAKER) 1.85 mg/dL 0.57-1.25 H (test code = 358) GLUCOSE RANDOM 162 mg/dL 70-105 H (BEAKER) (test code = 652) CALCIUM (BEAKER) 9.1 mg/dL 8.4-10.2 (test code = 697) EGFR (BEAKER) (test 37 mL/min/1.73 ESTIMA CHINEDU GFR IS code = 1092) sq m NOT ACCURATE CREATININE CLEARANCE IN PREDICTING GLOMERULAR FILTRATION RATE . ESTIMATED GFR I S NOT APPLICABLE FOR DIALYSIS PATIEN TS. [employer] ID - EVERARDO Baker slightly ictericHEPATIC FUNCTION [id number] 04:17:08 Test Item Value Reference Range Interpretation Comments TOTAL PROTEIN (BEAKER) (test code = 6.7 gm/dL 6.0-8.3 770) ALBUMIN (BEAKER) (test code = 1145) 3.2 g/dL 3.5-5.0 L BILIRUBIN TOTAL (BEAKER) (test code 2.3 mg/dL 0.2-1.2 H = 377) BILIRUBIN DIRECT (BEAKER) (test 1.6 mg/dL 0.1-0.5 H code = 706) ALKALINE PHOSPHATASE (BEAKER) (test 75 U/L 40-150 code = 346) AST (SGOT) (BEAKER) (test code = 58 U/L 5-34 H 353) ALT (SGPT) (BEAKER) (test code = 153 U/L 6-55 H 347) [employer] ID - EVERARDO Atkinsonimen slightly [id number] 01:02:08 Test Item Value Reference Range Interpretation Comments PARTIAL THROMBOPLASTIN TIME 29.6 seconds 22.5-36.0 (BEAKER) (test code = 760) BASIC METABOLIC [id number] 18:46:26 Test Item Value Reference Range Interpretation Comments SODIUM (BEAKER) 135 meq/L 136-145 L (test code = 381) POTASSIUM (BEAKER) 4.6 meq/L 3.5-5.1 Specimen markedly (test code = 379) hemolyzed CHLORIDE (BEAKER) 101 meq/L 98-107 (test code = 382) CO2 (BEAKER) (test 27 meq/L 22-29 code = 355) BLOOD UREA NITROGEN 27 mg/dL 7-21 H (BEAKER) (test code = 354) CREATININE (BEAKER) 1.36 mg/dL 0.57-1.25 H Specimen markedly (test code = 358) hemolyzed GLUCOSE RANDOM 111 mg/dL 70-105 H (BEAKER) (test code = 652) CALCIUM (BEAKER) 8.7 mg/dL 8.4-10.2 (test code = 697) EGFR (BEAKER) (test 53 mL/min/1.73 ESTIMA CHINEDU GFR IS code = 1092) sq m NOT ACCURATE CREATININE CLEARANCE IN PREDICTING GLOMERULAR FILTRATION RATE . ESTIMATED GFR I S NOT APPLICABLE FOR DIALYSIS PATIEN TS. [employer] ID - BSSpecimen slightly [id number] 18:46:25 Test Item Value Reference Range Interpretation Comments MAGNESIUM (BEAKER) 2.1 mg/dL 1.6-2.6 Specimen markedly (test code = 627) hemolyzed [employer] ID - BSPOCT-GLUCOSE [id number] 16:49:58 Test Item Value Reference Range Interpretation Comments POC-GLUCOSE METER 108 mg/dL 70-110 : TESTED A T [facility] (BEAKER) (test code = [place], 1538) [address]: [employer]/Techni meaghan ID = [id number] for Rolando Turner [id number] 10:07:57 Test Item Value Reference Range Interpretation Comments MAGNESIUM (BEAKER) (test code = 2.1 mg/dL 1.6-2.6 627) [employer] ID - BRUNILDAAYA LPOCT-GLUCOSE [id number] 08:27:52 Test Item Value Reference Range Interpretation Comments POC-GLUCOSE METER 126 mg/dL 70-110 H : TESTED A T [facility] 6720 (BEAKER) (test code = DARIANA Hay [place], 1538) [address]: [employer]/Techni meaghan ID = [id number] for DANGELO MARQUES BASIC METABOLIC [id number] 06:40:23 Test Item Value Reference Range Interpretation Comments SODIUM (BEAKER) 132 meq/L 136-145 L (test code = 381) POTASSIUM (BEAKER) 4.0 meq/L 3.5-5.1 Specimen slightly (test code = 379) hemolyzed CHLORIDE (BEAKER) 97 meq/L 98-107 L (test code = 382) CO2 (BEAKER) (test 27 meq/L 22-29 code = 355) BLOOD UREA NITROGEN 28 mg/dL 7-21 H (BEAKER) (test code = 354) CREATININE (BEAKER) 1.38 mg/dL 0.57-1.25 H Specimen slightly (test code = 358) hemolyzed GLUCOSE RANDOM 136 mg/dL 70-105 H (BEAKER) (test code = 652) CALCIUM (BEAKER) 9.1 mg/dL 8.4-10.2 (test code = 697) EGFR (BEAKER) (test 53 mL/min/1.73 ESTIMA CHINEDU GFR IS code = 1092) sq m NOT ACCURATE CREATININE CLEARANCE IN PREDICTING GLOMERULAR FILTRATION RATE . ESTIMATED GFR I S NOT APPLICABLE FOR DIALYSIS PATIEN TS. [employer] ID - PIAYA LSpecimen slightly ictericHEPATIC FUNCTION [id number] 06:40:23 Test Item Value Reference Range Interpretation Comments TOTAL PROTEIN (BEAKER) 6.7 gm/dL 6.0-8.3 Speci men slightly (test code = 770) hemolyzed ALBUMIN (BEAKER) (test 3.2 g/dL 3.5-5.0 L Speci men slightly code = 1145) hemolyzed BILIRUBIN TOTAL 2.5 mg/dL 0.2-1.2 H Specimen sli ghtly (BEAKER) (test code = hemoly zed 377) BILIRUBIN DIRECT 1.5 mg/dL 0.1-0.5 H Specimen sl ightly (BEAKER) (test code = hemoly zed 706) ALKALINE PHOSPHATASE 83 U/L 40-150 (BEAKER) (test code = 346) AST (SGOT) (BEAKER) 82 U/L 5-34 H Specimen slightly (test code = 353) hemolyzed ALT (SGPT) (BEAKER) 218 U/L 6-55 H Specimen slightly (test code = 347) hemolyzed [employer] ID - EVERARDO LSpecimen slightly [id number] 06:40:22 Test Item Value Reference Range Interpretation Comments MAGNESIUM (BEAKER) 2.1 mg/dL 1.6-2.6 Specimen slightly (test code = 627) hemolyzed [employer] ID - EVERARDO [id number] 06:15:38 Test Item Value Reference Range Interpretation Comments PARTIAL THROMBOPLASTIN TIME 75.9 seconds 22.5-36.0 H (BEAKER) (test code = 760) CBC W/PLT COUNT & AUTO [id number] 06:13:34 Test Item Value Reference Range Interpretation Comments WHITE BLOOD CELL COUNT (BEAKER) 9.0 K/ L 3.5-10.5 (test code = 775) RED BLOOD CELL COUNT (BEAKER) 5.14 M/ L 4.63-6.08 (test code = 761) HEMOGLOBIN (BEAKER) (test code = 13.4 GM/DL 13.7-17.5 L 410) HEMATOCRIT (BEAKER) (test code = 40.7 % 40.1-51.0 411) MEAN CORPUSCULAR VOLUME (BEAKER) 79.2 fL 79.0-92.2 (test code = 753) MEAN CORPUSCULAR HEMOGLOBIN 26.1 pg 25.7-32.2 (BEAKER) (test code = 751) MEAN CORPUSCULAR HEMOGLOBIN CONC 32.9 GM/DL 32.3-36.5 (BEAKER) (test code = 752) RED CELL DISTRIBUTION WIDTH 18.7 % 11.6-14.4 H (BEAKER) (test code = 412) PLATELET COUNT (BEAKER) (test 263 K/CU MM 150-450 code = 756) MEAN PLATELET VOLUME (BEAKER) 11.3 fL 9.4-12.4 (test code = 754) NUCLEATED RED BLOOD CELLS 0 /100 WBC 0-0 (BEAKER) (test code = 413) NEUTROPHILS RELATIVE PERCENT 63 % (BEAKER) (test code = 429) LYMPHOCYTES RELATIVE PERCENT 16 % (BEAKER) (test code = 430) MONOCYTES RELATIVE PERCENT 14 % (BEAKER) (test code = 431) EOSINOPHILS RELATIVE PERCENT 6 % (BEAKER) (test code = 432) BASOPHILS RELATIVE PERCENT 0 % (BEAKER) (test code = 437) NEUTROPHILS ABSOLUTE COUNT 5.66 K/ L 1.78-5.38 H (BEAKER) (test code = 670) LYMPHOCYTES ABSOLUTE COUNT 1.46 K/ L 1.32-3.57 (BEAKER) (test code = 414) MONOCYTES ABSOLUTE COUNT (BEAKER) 1.25 K/ L 0.30-0.82 H (test code = 415) EOSINOPHILS ABSOLUTE COUNT 0.53 K/ L 0.04-0.54 (BEAKER) (test code = 416) BASOPHILS ABSOLUTE COUNT (BEAKER) 0.03 K/ L 0.01-0.08 (test code = 417) IMMATURE GRANULOCYTES-RELATIVE 1 % 0-1 PERCENT (BEAKER) (test code = 2801) BASIC METABOLIC [id number] 00:22:57 Test Item Value Reference Range Interpretation Comments SODIUM (BEAKER) 130 meq/L 136-145 L (test code = 381) POTASSIUM (BEAKER) 4.2 meq/L 3.5-5.1 Specimen slightly (test code = 379) hemolyzed CHLORIDE (BEAKER) 97 meq/L 98-107 L (test code = 382) CO2 (BEAKER) (test 25 meq/L 22-29 code = 355) BLOOD UREA NITROGEN 29 mg/dL 7-21 H (BEAKER) (test code = 354) CREATININE (BEAKER) 1.38 mg/dL 0.57-1.25 H Specimen slightly (test code = 358) hemolyzed GLUCOSE RANDOM 182 mg/dL 70-105 H (BEAKER) (test code = 652) CALCIUM (BEAKER) 8.8 mg/dL 8.4-10.2 (test code = 697) EGFR (BEAKER) (test 53 mL/min/1.73 ESTIMA CHINEDU GFR IS code = 1092) sq m NOT ACCURATE CREATININE CLEARANCE IN PREDICTING GLOMERULAR FILTRATION RATE . ESTIMATED GFR I S NOT APPLICABLE FOR DIALYSIS PATIEN TS. [employer] ID - PIAYA LSpecimen slightly [id number] 00:22:31 Test Item Value Reference Range Interpretation Comments MAGNESIUM (BEAKER) 2.0 mg/dL 1.6-2.6 Specimen slightly (test code = 627) hemolyzed [employer] ID - EVERARDO [id number] 00:00:11 Test Item Value Reference Range Interpretation Comments PARTIAL THROMBOPLASTIN TIME 60.8 seconds 22.5-36.0 H (BEAKER) (test code = 760) POCT-GLUCOSE [id number] 17:27:41 Test Item Value Reference Range Interpretation Comments POC-GLUCOSE METER 184 mg/dL 70-110 H : TESTED A T [facility] 6720 (BEAKER) (test code = [facility], 1538) [address]: [employer]/Techni meaghan ID = [id number] for QUEEN DOUGLAS [id number] 14:59:00 Test Item Value Reference Range Interpretation Comments PARTIAL THROMBOPLASTIN TIME 108.3 seconds 22.5-36.0 H (BEAKER) (test code = 760) POCT-GLUCOSE [id number] 11:48:46 Test Item Value Reference Range Interpretation Comments POC-GLUCOSE METER 136 mg/dL 70-110 H : TESTED A T [facility] 6720 (BEAKER) (test code = [facility], 1538) [address]: [employer]/Techni meaghan ID = [id number] for QUEEN DOUGLAS POCT-GLUCOSE [id number] 07:16:48 Test Item Value Reference Range Interpretation Comments POC-GLUCOSE METER 116 mg/dL 70-110 H : TESTED A T [facility] 6720 (BEAKER) (test code = [facility], 153) [address]: [employer]/Techni meaghan ID = [id number] for Liam villarreal (pca2), Sheryl HEPATIC FUNCTION [id number] 05:36:48 Test Item Value Reference Range Interpretation Comments TOTAL PROTEIN (BEAKER) 7.8 gm/dL 6.0-8.3 Speci men slightly (test code = 770) hemolyzed ALBUMIN (BEAKER) (test 3.6 g/dL 3.5-5.0 Speci men slightly code = 1145) hemolyzed BILIRUBIN TOTAL 3.0 mg/dL 0.2-1.2 H Specimen sli ghtly (BEAKER) (test code = hemoly zed 377) BILIRUBIN DIRECT 1.6 mg/dL 0.1-0.5 H Specimen sl ightly (BEAKER) (test code = hemoly zed 706) ALKALINE PHOSPHATASE 100 U/L 40-150 (BEAKER) (test code = 346) AST (SGOT) (BEAKER) 116 U/L 5-34 H Specimen slightly (test code = 353) hemolyzed ALT (SGPT) (BEAKER) 301 U/L 6-55 H Specimen slightly (test code = 347) hemolyzed [employer] ID - EVERARDO LSpecimen slightly [id number] 05:36:47 Test Item Value Reference Range Interpretation Comments MAGNESIUM (BEAKER) 2.4 mg/dL 1.6-2.6 Specimen slightly (test code = 627) hemolyzed [employer] ID - EVERARDO LBASIC METABOLIC [id number] 05:36:47 Test Item Value Reference Range Interpretation Comments SODIUM (BEAKER) 138 meq/L 136-145 (test code = 381) POTASSIUM (BEAKER) 4.2 meq/L 3.5-5.1 Specimen slightly (test code = 379) hemolyzed CHLORIDE (BEAKER) 99 meq/L 98-107 (test code = 382) CO2 (BEAKER) (test 28 meq/L 22-29 code = 355) BLOOD UREA NITROGEN 37 mg/dL 7-21 H (BEAKER) (test code = 354) CREATININE (BEAKER) 1.66 mg/dL 0.57-1.25 H Specimen slightly (test code = 358) hemolyzed GLUCOSE RANDOM 136 mg/dL 70-105 H (BEAKER) (test code = 652) CALCIUM (BEAKER) 9.4 mg/dL 8.4-10.2 (test code = 697) EGFR (BEAKER) (test 42 mL/min/1.73 ESTIMA CHINEDU GFR IS code = 1092) sq m NOT ACCURATE CREATININE CLEARANCE IN PREDICTING GLOMERULAR FILTRATION RATE . ESTIMATED GFR I S NOT APPLICABLE FOR DIALYSIS PATIEN TS. [employer] ID - EVERARDO LSpecimen slightly ictericCBC W/PLT COUNT & AUTO [id number] 05:01:53 Test Item Value Reference Range Interpretation Comments WHITE BLOOD CELL COUNT (BEAKER) 8.0 K/ L 3.5-10.5 (test code = 775) RED BLOOD CELL COUNT (BEAKER) 5.58 M/ L 4.63-6.08 (test code = 761) HEMOGLOBIN (BEAKER) (test code = 14.6 GM/DL 13.7-17.5 410) HEMATOCRIT (BEAKER) (test code = 46.5 % 40.1-51.0 411) MEAN CORPUSCULAR VOLUME (BEAKER) 83.3 fL 79.0-92.2 (test code = 753) MEAN CORPUSCULAR HEMOGLOBIN 26.2 pg 25.7-32.2 (BEAKER) (test code = 751) MEAN CORPUSCULAR HEMOGLOBIN CONC 31.4 GM/DL 32.3-36.5 L (BEAKER) (test code = 752) RED CELL DISTRIBUTION WIDTH 20.2 % 11.6-14.4 H (BEAKER) (test code = 412) PLATELET COUNT (BEAKER) (test 297 K/CU MM 150-450 code = 756) MEAN PLATELET VOLUME (BEAKER) 11.5 fL 9.4-12.4 (test code = 754) NUCLEATED RED BLOOD CELLS 0 /100 WBC 0-0 (BEAKER) (test code = 413) NEUTROPHILS RELATIVE PERCENT 60 % (BEAKER) (test code = 429) LYMPHOCYTES RELATIVE PERCENT 21 % (BEAKER) (test code = 430) MONOCYTES RELATIVE PERCENT 13 % (BEAKER) (test code = 431) EOSINOPHILS RELATIVE PERCENT 5 % (BEAKER) (test code = 432) BASOPHILS RELATIVE PERCENT 1 % (BEAKER) (test code = 437) NEUTROPHILS ABSOLUTE COUNT 4.82 K/ L 1.78-5.38 (BEAKER) (test code = 670) LYMPHOCYTES ABSOLUTE COUNT 1.65 K/ L 1.32-3.57 (BEAKER) (test code = 414) MONOCYTES ABSOLUTE COUNT (BEAKER) 1.06 K/ L 0.30-0.82 H (test code = 415) EOSINOPHILS ABSOLUTE COUNT 0.40 K/ L 0.04-0.54 (BEAKER) (test code = 416) BASOPHILS ABSOLUTE COUNT (BEAKER) 0.04 K/ L 0.01-0.08 (test code = 417) IMMATURE GRANULOCYTES-RELATIVE 0 % 0-1 PERCENT (BEAKER) (test code = 2801) [id number] 04:51:52 Test Item Value Reference Range Interpretation Comments PARTIAL THROMBOPLASTIN TIME 51.8 seconds 22.5-36.0 H (BEAKER) (test code = 760) POCT-GLUCOSE [id number] 22:48:06 Test Item Value Reference Range Interpretation Comments POC-GLUCOSE METER 178 mg/dL 70-110 H : TESTED A T [facility] 6720 (BEAKER) (test code = [facility], 1538) 160[address]: [employer]/Techni meaghan ID = [id number] for YE (V)JAMES BASIC METABOLIC [id number] 19:05:45 Test Item Value Reference Range Interpretation Comments SODIUM (BEAKER) 136 meq/L 136-145 (test code = 381) POTASSIUM (BEAKER) 4.2 meq/L 3.5-5.1 Specimen slightly (test code = 379) hemolyzed CHLORIDE (BEAKER) 98 meq/L 98-107 (test code = 382) CO2 (BEAKER) (test 26 meq/L 22-29 code = 355) BLOOD UREA NITROGEN 43 mg/dL 7-21 H (BEAKER) (test code = 354) CREATININE (BEAKER) 1.89 mg/dL 0.57-1.25 H Specimen slightly (test code = 358) hemolyzed GLUCOSE RANDOM 261 mg/dL 70-105 H (BEAKER) (test code = 652) CALCIUM (BEAKER) 8.6 mg/dL 8.4-10.2 (test code = 697) EGFR (BEAKER) (test 37 mL/min/1.73 ESTIMA CHINEDU GFR IS code = 1092) sq m NOT ACCURATE CREATININE CLEARANCE IN PREDICTING GLOMERULAR FILTRATION RATE . ESTIMATED GFR I S NOT APPLICABLE FOR DIALYSIS PATIEN TS. [employer] ID - [id number] 19:05:44 Test Item Value Reference Range Interpretation Comments MAGNESIUM (BEAKER) 2.3 mg/dL 1.6-2.6 Specimen slightly (test code = 627) hemolyzed [employer] ID - FSEPOCT-GLUCOSE [id number] 16:54:37 Test Item Value Reference Range Interpretation Comments POC-GLUCOSE METER 207 mg/dL 70-110 H : TESTED A T [facility] 6720 (BEAKER) (test code = [facility], 1538) 885[address]: [employer]/Techni meaghan ID = [id number] for BE RNABE, RENEE POCT-GLUCOSE [id number] 11:22:15 Test Item Value Reference Range Interpretation Comments POC-GLUCOSE METER 193 mg/dL 70-110 H : TESTED A T [facility] 6720 (BEAKER) (test code = [facility], 1538) 733[address]: [employer]/Techni meaghan ID = [id number] for RAY RNABE, RENEE POCT-GLUCOSE [id number] 07:38:56 Test Item Value Reference Range Interpretation Comments POC-GLUCOSE METER 114 mg/dL 70-110 H : TESTED A T [facility] 6720 (BEAKER) (test code = [facility], 1538) 256[address]: [employer]/Techni meaghan ID = [id number] for BE RNABE, RENEE [id number] 03:46:18 Test Item Value Reference Range Interpretation Comments PARTIAL THROMBOPLASTIN TIME 67.0 seconds 22.5-36.0 H (BEAKER) (test code = 760) [id number] 03:41:58 Test Item Value Reference Range Interpretation Comments MAGNESIUM (BEAKER) (test code = 2.2 mg/dL 1.6-2.6 627) [employer] ID - DBBASIC METABOLIC [id number] 03:41:58 Test Item Value Reference Range Interpretation Comments SODIUM (BEAKER) 137 meq/L 136-145 (test code = 381) POTASSIUM (BEAKER) 3.9 meq/L 3.5-5.1 (test code = 379) CHLORIDE (BEAKER) 100 meq/L 98-107 (test code = 382) CO2 (BEAKER) (test 28 meq/L 22-29 code = 355) BLOOD UREA NITROGEN 46 mg/dL 7-21 H (BEAKER) (test code = 354) CREATININE (BEAKER) 1.79 mg/dL 0.57-1.25 H (test code = 358) GLUCOSE RANDOM 114 mg/dL 70-105 H (BEAKER) (test code = 652) CALCIUM (BEAKER) 8.8 mg/dL 8.4-10.2 (test code = 697) EGFR (BEAKER) (test 39 mL/min/1.73 ESTIMA CHINEDU GFR IS code = 1092) sq m NOT ACCURATE CREATININE CLEARANCE IN PREDICTING GLOMERULAR FILTRATION RATE . ESTIMATED GFR I S NOT APPLICABLE FOR DIALYSIS PATIEN TS. [employer] ID - DBSpecimen slightly ictericCBC (Hemogram only)2021-02-02 03:33:31 Test Item Value Reference Range Interpretation Comments WBC (test code = 6690-2) 8.0 See_Comment [A utomated message] The system [employer] generated this result transmitted ref erence range: 3.5 - 10 .5 K/L. The refe rence range was not u sed to interpret this result as normal/abnor mal. RBC (test code = 789-8) 5.09 See_Comment [Au tomated message] The system [employer] generated this result transmitted ref erence range: 4.63 - 6 .08 M/L. The refe rence range was not u sed to interpret this result as normal/abnor mal. MCHC (test code = 786-4) 33.2 See_Comment L [A utomated message] The system [employer] generated this result transmitted ref erence range: 32.3 - 3 6.5 GM/DL. The refe rence range was not u sed to interpret this result as normal/abnor mal. Hematocrit (test code = 41.0 % 40.1-51.0 4544-3) MCV (test code = 787-2) 80.6 fL 79.0-92.2 MCH (test code = 785-6) 26.7 pg 25.7-32.2 RDW (test code = 788-0) 20.0 % 11.6-14.4 H Platelets (test code = 268 See_Comment [Aut omated message] 777-3) The system [employer] generated this result transmitted ref erence range: 150 - 45 0 K/CU MM. The referen ce range was not u sed to interpret this result as normal/abnor mal. MPV (test code = 11.1 fL 9.4-12.4 34307-8) nRBC (test code = 413) 0 See_Comment [Aut omated message] The system [employer] generated this result transmitted ref erence range: 0 - 0 /1 00 WBC. The refere nce range was not u sed to interpret this result as normal/abnor mal. Lab Interpretation (test Abnormal code = 28682-7) [facility] 03:33:31 Test Item Value Reference Range Interpretation Comments WHITE BLOOD CELL COUNT (BEAKER) 8.0 K/ L 3.5-10.5 (test code = 775) RED BLOOD CELL COUNT (BEAKER) 5.09 M/ L 4.63-6.08 (test code = 761) HEMOGLOBIN (BEAKER) (test code = 13.6 GM/DL 13.7-17.5 L 410) HEMATOCRIT (BEAKER) (test code = 41.0 % 40.1-51.0 411) MEAN CORPUSCULAR VOLUME (BEAKER) 80.6 fL 79.0-92.2 (test code = 753) MEAN CORPUSCULAR HEMOGLOBIN 26.7 pg 25.7-32.2 (BEAKER) (test code = 751) MEAN CORPUSCULAR HEMOGLOBIN CONC 33.2 GM/DL 32.3-36.5 (BEAKER) (test code = 752) RED CELL DISTRIBUTION WIDTH 20.0 % 11.6-14.4 H (BEAKER) (test code = 412) PLATELET COUNT (BEAKER) (test 268 K/CU MM 150-450 code = 756) MEAN PLATELET VOLUME (BEAKER) 11.1 fL 9.4-12.4 (test code = 754) NUCLEATED RED BLOOD CELLS 0 /100 WBC 0-0 (BEAKER) (test code = 413) POCT-GLUCOSE [id number] 22:01:37 Test Item Value Reference Range Interpretation Comments POC-GLUCOSE METER 171 mg/dL 70-110 H : TESTED A T [facility] 6720 (BEAKER) (test code = [place], 1538) [id number]: [employer]/Techni meaghan ID = [id number] for AL I (V), GWYN [id number] 20:05:04 Test Item Value Reference Range Interpretation Comments MAGNESIUM (BEAKER) 2.2 mg/dL 1.6-2.6 Specimen slightly (test code = 627) hemolyzed [employer] ID - DBBASIC METABOLIC [id number] 17:15:38 Test Item Value Reference Range Interpretation Comments SODIUM (BEAKER) 137 meq/L 136-145 (test code = 381) POTASSIUM (BEAKER) 3.8 meq/L 3.5-5.1 (test code = 379) CHLORIDE (BEAKER) 100 meq/L 98-107 (test code = 382) CO2 (BEAKER) (test 26 meq/L 22-29 code = 355) BLOOD UREA NITROGEN 47 mg/dL 7-21 H (BEAKER) (test code = 354) CREATININE (BEAKER) 1.90 mg/dL 0.57-1.25 H (test code = 358) GLUCOSE RANDOM 195 mg/dL 70-105 H (BEAKER) (test code = 652) CALCIUM (BEAKER) 8.2 mg/dL 8.4-10.2 L (test code = 697) EGFR (BEAKER) (test 36 mL/min/1.73 ESTIMA CHINEDU GFR IS code = 1092) sq m NOT ACCURATE CREATININE CLEARANCE IN PREDICTING GLOMERULAR FILTRATION RATE . ESTIMATED GFR I S NOT APPLICABLE FOR DIALYSIS PATIEN TS. [employer] ID - DBOperator ID - DBSpecimen slightly ictericPOCT-GLUCOSE METER 2021-02-01 16:08:58 Test Item Value Reference Range Interpretation Comments POC-GLUCOSE METER 188 mg/dL 70-110 H : TESTED A T [facility] 6720 (BEAKER) (test code = [facility], 1538) [id number]: [employer]/Techni meaghan ID = [id number] for RENEE RIOS 2D Echo W/Doppler(CW/PW/Color)2021-02-01 12:13:17Ejection FractionSLEH ECHO HEARTLAB MKCKESSON [facility] [id number] 11:26:50 Test Item Value Reference Range Interpretation Comments POC-GLUCOSE METER 166 mg/dL 70-110 H : TESTED A T [facility] 6720 (BEAKER) (test code = [facility], 1538) [id number]: [employer]/Techni meaghan ID = [id number] for MILANA MOORE [id number] 10:35:12 Test Item Value Reference Range Interpretation Comments MAGNESIUM (BEAKER) 2.2 mg/dL 1.6-2.6 Specimen slightly (test code = 627) hemolyzed [employer] ID - [id number] 09:32:41 Test Item Value Reference Range Interpretation Comments PARTIAL THROMBOPLASTIN TIME 67.8 seconds 22.5-36.0 H (BEAKER) (test code = 760) POCT-GLUCOSE [id number] 07:38:55 Test Item Value Reference Range Interpretation Comments POC-GLUCOSE METER 105 mg/dL 70-110 : TESTED A T [facility] 6720 (BEAKER) (test code = [place], 1538) [id number]: [employer]/Techni meaghan ID = [id number] for MILANA MOORE CBC (HEMOGRAM ONLY)2021-02-01 04:29:27 Test Item Value Reference Range Interpretation Comments WHITE BLOOD CELL COUNT (BEAKER) 7.3 K/ L 3.5-10.5 (test code = 775) RED BLOOD CELL COUNT (BEAKER) 4.60 M/ L 4.63-6.08 L (test code = 761) HEMOGLOBIN (BEAKER) (test code = 12.2 GM/DL 13.7-17.5 L 410) HEMATOCRIT (BEAKER) (test code = 36.6 % 40.1-51.0 L 411) MEAN CORPUSCULAR VOLUME (BEAKER) 79.6 fL 79.0-92.2 (test code = 753) MEAN CORPUSCULAR HEMOGLOBIN 26.5 pg 25.7-32.2 (BEAKER) (test code = 751) MEAN CORPUSCULAR HEMOGLOBIN CONC 33.3 GM/DL 32.3-36.5 (BEAKER) (test code = 752) RED CELL DISTRIBUTION WIDTH 19.9 % 11.6-14.4 H (BEAKER) (test code = 412) PLATELET COUNT (BEAKER) (test 220 K/CU MM 150-450 code = 756) MEAN PLATELET VOLUME (BEAKER) 11.6 fL 9.4-12.4 (test code = 754) NUCLEATED RED BLOOD CELLS 0 /100 WBC 0-0 (BEAKER) (test code = 413) BASIC METABOLIC [id number] 04:07:27 Test Item Value Reference Range Interpretation Comments SODIUM (BEAKER) 137 meq/L 136-145 (test code = 381) POTASSIUM (BEAKER) 3.6 meq/L 3.5-5.1 (test code = 379) CHLORIDE (BEAKER) 102 meq/L 98-107 (test code = 382) CO2 (BEAKER) (test 25 meq/L 22-29 code = 355) BLOOD UREA NITROGEN 53 mg/dL 7-21 H (BEAKER) (test code = 354) CREATININE (BEAKER) 1.96 mg/dL 0.57-1.25 H (test code = 358) GLUCOSE RANDOM 139 mg/dL 70-105 H (BEAKER) (test code = 652) CALCIUM (BEAKER) 7.8 mg/dL 8.4-10.2 L (test code = 697) EGFR (BEAKER) (test 35 mL/min/1.73 ESTIMA CHINEDU GFR IS code = 1092) sq m NOT ACCURATE CREATININE CLEARANCE IN PREDICTING GLOMERULAR FILTRATION RATE . ESTIMATED GFR I S NOT APPLICABLE FOR DIALYSIS PATIEN TS. [employer] ID - DBSpecimen slightly ictericHEPATIC FUNCTION [id number] 03:55:47 Test Item Value Reference Range Interpretation Comments TOTAL PROTEIN (BEAKER) (test code = 6.0 gm/dL 6.0-8.3 770) ALBUMIN (BEAKER) (test code = 1145) 3.0 g/dL 3.5-5.0 L BILIRUBIN TOTAL (BEAKER) (test code 2.5 mg/dL 0.2-1.2 H = 377) BILIRUBIN DIRECT (BEAKER) (test 1.8 mg/dL 0.1-0.5 H code = 706) ALKALINE PHOSPHATASE (BEAKER) (test 94 U/L 40-150 code = 346) AST (SGOT) (BEAKER) (test code = 211 U/L 5-34 H 353) ALT (SGPT) (BEAKER) (test code = 407 U/L 6-55 H 347) [employer] ID - DBSpecimen slightly [id number] 03:36:42 Test Item Value Reference Range Interpretation Comments PARTIAL THROMBOPLASTIN TIME 82.7 seconds 22.5-36.0 H (BEAKER) (test code = 760) U/S, RENAL, [id number] 00:32:00Reason for exam:->susana [facility] : 1960 Sex: MFINAL REPORTPATIENT ID: [id number] Ultrasound of the Kidneys Clinical History: susana Comparison: None. Discussion: Sonographic evaluation of the kidneys was performed. Right kidney: 12.5 x 5.7 x 4.2 cm, with cortical thickness of 1.7 cm. Normal cortical echogenicity. No mass. No shadowing calculus. No hydronephrosis.Left kidney: 13.2 x 7 x 5.7 cm, with cortical thickness of 2 cm. Normal cortical echogenicity. No mass. No shadowing calculus. No hydronephrosis. Limited doppler evaluation of bilateral main renal arteries and veins demonstrate patency. Bladder: Distended with a prevoid volume of 215 cc, and postvoid residual of 94 cc. Impression: Small to moderate urinary bladder postvoid residual.No hydronephrosis.Signed: Garrick Herebrt [facility]ENTEReport Verified Date/Time: 02/01/2021 00:32:09 [id number] 20:45:28 Test Item Value Reference Range Interpretation Comments PARTIAL THROMBOPLASTIN TIME 93.3 seconds 22.5-36.0 H (BEAKER) (test code = 760) POCT-GLUCOSE [id number] 20:44:08 Test Item Value Reference Range Interpretation Comments POC-GLUCOSE METER 218 mg/dL 70-110 H : TESTED A T [facility] 6720 (BEAKER) (test code = [place], 1538) [address]: [employer]/Techni meaghan ID = [id number] for AL I (V), GWYN BASIC METABOLIC [id number] 16:51:55 Test Item Value Reference Range Interpretation Comments SODIUM (BEAKER) 135 meq/L 136-145 L (test code = 381) POTASSIUM (BEAKER) 4.3 meq/L 3.5-5.1 Specimen markedly (test code = 379) hemolyzed CHLORIDE (BEAKER) 103 meq/L 98-107 (test code = 382) CO2 (BEAKER) (test 22 meq/L 22-29 code = 355) BLOOD UREA NITROGEN 55 mg/dL 7-21 H (BEAKER) (test code = 354) CREATININE (BEAKER) 2.17 mg/dL 0.57-1.25 H Specimen markedly (test code = 358) hemolyzed GLUCOSE RANDOM 132 mg/dL 70-105 H (BEAKER) (test code = 652) CALCIUM (BEAKER) 7.6 mg/dL 8.4-10.2 L (test code = 697) EGFR (BEAKER) (test 31 mL/min/1.73 ESTIMA CHINEDU GFR IS code = 1092) sq m NOT ACCURATE CREATININE CLEARANCE IN PREDICTING GLOMERULAR FILTRATION RATE . ESTIMATED GFR I S NOT APPLICABLE FOR DIALYSIS PATIEN TS. [employer] ID - DBSpecimen slightly [id number] 16:47:30 Test Item Value Reference Range Interpretation Comments MAGNESIUM (BEAKER) 2.3 mg/dL 1.6-2.6 Specimen markedly (test code = 627) hemolyzed [employer] ID - DBPOCT-GLUCOSE [id number] 16:31:01 Test Item Value Reference Range Interpretation Comments POC-GLUCOSE METER 127 mg/dL 70-110 H : TESTED A T [facility] 6720 (BEAKER) (test code = [facility] [employer] [facility], 1538) [address]: [employer]/Techni meaghan ID = [id number] for Kyler Aviles [id number] 14:17:11 Test Item Value Reference Range Interpretation Comments PARTIAL THROMBOPLASTIN TIME 90.7 seconds 22.5-36.0 H (BEAKER) (test code = 760) POCT-GLUCOSE [id number] 12:42:26 Test Item Value Reference Range Interpretation Comments POC-GLUCOSE METER 80 mg/dL 70-110 : TESTED A T [facility] 6720 (BEAKER) (test code = [facility], 1538) [address]: [employer]/Techni meaghan ID = [id number] for COGG INMARISH CHIQUITA's Only(Ankle/Brachial Index)2021-01-31 12:05:06Ejection FractionSLEH ECHO HEARTLAB MKCKESSON CPACSCHI [facility] HospitalHemoglobin [id number] 09:35:17 Test Item Value Reference Range Interpretation Comments Hemoglobin A1C (test code = 4548-4) 6.0 % 4.3-6.1 Lab Interpretation (test code = Normal 42235-4) [facility] HospitalHEMOGLOBIN [id number] 09:35:17 Test Item Value Reference Range Interpretation Comments HEMOGLOBIN A1C (BEAKER) (test code = 6.0 % 4.3-6.1 368) [id number] 07:39:09 Test Item Value Reference Range Interpretation Comments MAGNESIUM (BEAKER) 2.3 mg/dL 1.6-2.6 Specimen slightly (test code = 627) hemolyzed [employer] ID - ARACELIS WPOCT-GLUCOSE [id number] 07:38:36 Test Item Value Reference Range Interpretation Comments POC-GLUCOSE METER 66 mg/dL 70-110 L : TESTED A T [facility] 6720 (BEAKER) (test code = [place], 1538) [address]: [employer]/Techni meaghan ID = [id number] for Kyler Oviedo [id number] 07:02:42 Test Item Value Reference Range Interpretation Comments PARTIAL THROMBOPLASTIN TIME 44.8 seconds 22.5-36.0 H (BEAKER) (test code = 760) BASIC METABOLIC [id number] 04:02:27 Test Item Value Reference Range Interpretation Comments SODIUM (BEAKER) 135 meq/L 136-145 L (test code = 381) POTASSIUM (BEAKER) 3.8 meq/L 3.5-5.1 Specimen slightly (test code = 379) hemolyzed CHLORIDE (BEAKER) 102 meq/L 98-107 (test code = 382) CO2 (BEAKER) (test 22 meq/L 22-29 code = 355) BLOOD UREA NITROGEN 56 mg/dL 7-21 H (BEAKER) (test code = 354) CREATININE (BEAKER) 2.24 mg/dL 0.57-1.25 H Specimen slightly (test code = 358) hemolyzed GLUCOSE RANDOM 68 mg/dL 70-105 L (BEAKER) (test code = 652) CALCIUM (BEAKER) 7.8 mg/dL 8.4-10.2 L (test code = 697) EGFR (BEAKER) (test 30 mL/min/1.73 ESTIMA CHINEDU GFR IS code = 1092) sq m NOT ACCURATE CREATININE CLEARANCE IN PREDICTING GLOMERULAR FILTRATION RATE . ESTIMATED GFR I S NOT APPLICABLE FOR DIALYSIS PATIEN TS. [employer] BC DE LA CRUZpecanna slightly ictericHEPATIC FUNCTION [id number] 04:01:38 Test Item Value Reference Range Interpretation Comments TOTAL PROTEIN (BEAKER) 6.0 gm/dL 6.0-8.3 Speci men slightly (test code = 770) hemolyzed ALBUMIN (BEAKER) (test 2.9 g/dL 3.5-5.0 L Speci men slightly code = 1145) hemolyzed BILIRUBIN TOTAL 2.9 mg/dL 0.2-1.2 H Specimen sli ghtly (BEAKER) (test code = hemoly zed 377) BILIRUBIN DIRECT 1.7 mg/dL 0.1-0.5 H Specimen sl ightly (BEAKER) (test code = hemoly zed 706) ALKALINE PHOSPHATASE 87 U/L 40-150 (BEAKER) (test code = 346) AST (SGOT) (BEAKER) 456 U/L 5-34 H Specimen slightly (test code = 353) hemolyzed ALT (SGPT) (BEAKER) 550 U/L 6-55 H Specimen slightly (test code = 347) hemolyzed [employer] BC DE LA CRUZpecakin slightly ictericCBC (HEMOGRAM ONLY)2021-01-31 03:19:49 Test Item Value Reference Range Interpretation Comments WHITE BLOOD CELL COUNT (BEAKER) 6.9 K/ L 3.5-10.5 (test code = 775) RED BLOOD CELL COUNT (BEAKER) 4.45 M/ L 4.63-6.08 L (test code = 761) HEMOGLOBIN (BEAKER) (test code = 11.7 GM/DL 13.7-17.5 L 410) HEMATOCRIT (BEAKER) (test code = 35.3 % 40.1-51.0 L 411) MEAN CORPUSCULAR VOLUME (BEAKER) 79.3 fL 79.0-92.2 (test code = 753) MEAN CORPUSCULAR HEMOGLOBIN 26.3 pg 25.7-32.2 (BEAKER) (test code = 751) MEAN CORPUSCULAR HEMOGLOBIN CONC 33.1 GM/DL 32.3-36.5 (BEAKER) (test code = 752) RED CELL DISTRIBUTION WIDTH 19.9 % 11.6-14.4 H (BEAKER) (test code = 412) PLATELET COUNT (BEAKER) (test 209 K/CU MM 150-450 code = 756) MEAN PLATELET VOLUME (BEAKER) 11.4 fL 9.4-12.4 (test code = 754) NUCLEATED RED BLOOD CELLS 0 /100 WBC 0-0 (BEAKER) (test code = 413) [id number] 23:36:20 Test Item Value Reference Range Interpretation Comments PARTIAL THROMBOPLASTIN TIME 44.9 seconds 22.5-36.0 H (BEAKER) (test code = 760) BASIC METABOLIC [id number] 22:10:09 Test Item Value Reference Range Interpretation Comments SODIUM (BEAKER) 134 meq/L 136-145 L (test code = 381) POTASSIUM (BEAKER) 4.8 meq/L 3.5-5.1 Specimen moderately (test code = 379) hemolyzed CHLORIDE (BEAKER) 100 meq/L 98-107 (test code = 382) CO2 (BEAKER) (test 21 meq/L 22-29 L code = 355) BLOOD UREA NITROGEN 60 mg/dL 7-21 H (BEAKER) (test code = 354) CREATININE (BEAKER) 2.64 mg/dL 0.57-1.25 H Specimen moderately (test code = 358) hemolyzed GLUCOSE RANDOM 87 mg/dL 70-105 (BEAKER) (test code = 652) CALCIUM (BEAKER) 8.4 mg/dL 8.4-10.2 (test code = 697) EGFR (BEAKER) (test 25 mL/min/1.73 ESTIMA CHINEDU GFR IS code = 1092) sq m NOT ACCURATE CREATININE CLEARANCE IN PREDICTING GLOMERULAR FILTRATION RATE . ESTIMATED GFR I S NOT APPLICABLE FOR DIALYSIS PATIEN TS. [employer] ID - DBSpecimen slightly [id number] 22:01:30 Test Item Value Reference Range Interpretation Comments MAGNESIUM (BEAKER) 2.5 mg/dL 1.6-2.6 Specimen markedly (test code = 627) hemolyzed [employer] ID - DBPOCT-GLUCOSE [id number] 20:50:52 Test Item Value Reference Range Interpretation Comments POC-GLUCOSE METER 85 mg/dL 70-110 : TESTED A T [facility] 6720 (BEAKER) (test code = [place] [facility], 1538) [address]: [employer]/Techni meaghan ID = [id number] for ABDIAZIZ (V)GWYN POCT-GLUCOSE [id number] 18:05:45 Test Item Value Reference Range Interpretation Comments POC-GLUCOSE METER 97 mg/dL 70-110 : TESTED A T [facility] 6720 (BEAKER) (test [facility] = [facility] 1538) [address]: [employer]/Techni meaghan ID = [id number] for TED MILES Hepatitis panel, [id number] 17:01:33 Test Item Value Reference Range Interpretation Comments Hep A IgM (test code = Nonreactive Nonreactive 51807-4) Hep B C IgM (test code = Nonreactive Nonreactive 99917-9) Hepatitis C Ab (test code = Nonreactive Nonreactive 84258-9) Hepatitis B surface antigen Nonreactive Nonreactive (test code = 5195-3) JEFF (test code = JEFF) [employer] ID - DB Lab Interpretation (test Normal code = 20329-8) [facility] Ant[facility] HIV-[facility]/2 [id number] 17:01:33 Test Item Value Reference Range Interpretation Comments HIV-1 Antigen with HIV 1&2 Nonreactive Nonreactive Antibody (test code = 02665-7) JEFF (test code = JEFF) [employer] ID - DB Lab Interpretation (test Normal code = 88992-1) [facility] CenterHEPAT[facility]IS PANEL, [id number] 17:01:33 Test Item Value Reference Range Interpretation Comments HEPATITIS A IGM ANTIBODY (BEAKER) Nonreactive Nonreactive (test code = 498) HEPATITIS B CORE IGM ANTIBODY Nonreactive Nonreactive (BEAKER) (test code = 645) HEPATITIS C ANTIBODY (BEAKER) Nonreactive Nonreactive (test code = 367) HEPATITIS B SURFACE ANTIGEN (2) Nonreactive Nonreactive (BEAKER) (test code = 2585) [employer] ID - DBHIV-1 ANTIGEN WITH HIV-1/2 [id number] 17:01:33 Test Item Value Reference Range Interpretation Comments HIV-1 ANTIGEN WITH HIV 1\\T\\2 Nonreactive Nonreactive ANTIBODY (2) (BEAKER) (test code = 2586) [employer] ID - [id number] 16:48:11 Test Item Value Reference Range Interpretation Comments PARTIAL THROMBOPLASTIN TIME 40.9 seconds 22.5-36.0 H (BEAKER) (test code = 760) BASIC METABOLIC [id number] 16:31:12 Test Item Value Reference Range Interpretation Comments SODIUM (BEAKER) 133 meq/L 136-145 L (test code = 381) POTASSIUM (BEAKER) 5.2 meq/L 3.5-5.1 H Specimen slightly (test code = 379) hemolyzed CHLORIDE (BEAKER) 98 meq/L 98-107 (test code = 382) CO2 (BEAKER) (test 21 meq/L 22-29 L code = 355) BLOOD UREA NITROGEN 62 mg/dL 7-21 H (BEAKER) (test code = 354) CREATININE (BEAKER) 2.97 mg/dL 0.57-1.25 H Specimen slightly (test code = 358) hemolyzed GLUCOSE RANDOM 112 mg/dL 70-105 H (BEAKER) (test code = 652) CALCIUM (BEAKER) 10.1 mg/dL 8.4-10.2 (test code = 697) EGFR (BEAKER) (test 22 mL/min/1.73 ESTIMA CHINEDU GFR IS code = 1092) sq m NOT ACCURATE CREATININE CLEARANCE IN PREDICTING GLOMERULAR FILTRATION RATE . ESTIMATED GFR I S NOT APPLICABLE FOR DIALYSIS PATIEN TS. [employer] ID - DBSpecimen moderately [id number] 16:29:50 Test Item Value Reference Range Interpretation Comments MAGNESIUM (BEAKER) 2.7 mg/dL 1.6-2.6 H Specimen slightly (test code = 627) hemolyzed [employer] ID - DBSodium, random [id number] 16:25:18 Test Item Value Reference Range Interpretation Comments Sodium Urine (test <20 meq/L code = 2955-3) JEFF (test code = Reference Range: No JEFF) NormalsOperator ID - DB [facility] CenterODI[facility], RANDOM [id number] 16:25:18 Test Item Value Reference Range Interpretation Comments SODIUM URINE (BEAKER) (test code = < meq/L 243) Reference Range: No NormalsOperator ID - DBUrea Nitrogen, random [id number] 16:22:26 Test Item Value Reference Range Interpretation Comments Urea Nitrogen, Ur 491 mg/dL (test code = 3095-7) JEFF (test code = Reference Range: No JEFF) NormalsOperator ID - DB [facility] CenterMicroalbumin, random [id number] 16:22:26 Test Item Value Reference Range Interpretation Comments Microalbumin, 5.4 mg/dL Urine (test code = 05934-1) JEFF (test code = Reference Range: No JEFF) NormalsOperator ID - DB [facility] CenterUREA NITROGEN, RANDOM [id number] 16:22:26 Test Item Value Reference Range Interpretation Comments UREA NITROGEN URINE (BEAKER) (test 491 mg/dL code = 538) Reference Range: No NormalsOperator ID - DBMICROALBUMIN, RANDOM [id number] 16:22:26 Test Item Value Reference Range Interpretation Comments MICROALBUMIN URINE (BEAKER) (test 5.4 mg/dL code = 1794) Reference Range: No NormalsOperator ID - DBCreatinine, random [id number] 16:22:25 Test Item Value Reference Range Interpretation Comments Creatinine, Ur 113.1 mg/dL (test code = 2161-8) JEFF (test code = Reference Range: No JEFF) NormalsOperator ID - DB [facility] CenterProtein, random [id number] 16:22:25 Test Item Value Reference Range Interpretation Comments Protein, Urine (test code = 13 mg/dL 0-14 2888-6) JEFF (test code = JEFF) [employer] ID - DB Lab Interpretation (test Normal code = 46806-0) [facility] CenterCREATININE, RANDOM [id number] 16:22:25 Test Item Value Reference Range Interpretation Comments CREATININE URINE (BEAKER) (test 113.1 mg/dL code = 375) Reference Range: No NormalsOperator ID - DBPROTEIN, RANDOM [id number] 16:22:25 Test Item Value Reference Range Interpretation Comments PROTEIN, URINE (BEAKER) (test code = 13 mg/dL 0-14 1569) [employer] ID - DBLactic acid, [id number] 16:16:04 Test Item Value Reference Range Interpretation Comments Lactate, Venous (test 1.90 mmol/L 0.50-2.20 Specim en code = 2872) slightly hemolyzed JEFF (test code = JEFF) [employer] ID - DBSpecimen slightly icteric Lab Interpretation Normal (test code = 27389-1) [facility] CenterLACTIC ACID, [id number] 16:16:04 Test Item Value Reference Range Interpretation Comments LACTATE BLOOD VENOUS 1.90 mmol/L 0.50-2.20 Specime n slightly (2) (BEAKER) (test hemolyzed code = 2872) [employer] ID - DBSpecimen slightly ictericUrinalysis Microscopic [id number] 15:10:25 Test Item Value Reference Range Interpretation Comments RBC, UA (test code 2 See_Comment [Automat ed = 82867-9) message] The sy stem which generated this result transmitted reference range : /HPF. The refer ence range was not u sed to interpret th is result as normal/abnormal . WBC, UA (test code 1 See_Comment [Automat ed = 5821-4) message] The sy stem which generated this result transmitted reference range : /HPF. The refer ence range was not u sed to interpret th is result as normal/abnormal . Bacteria, UA (test Rare code = 64221-5) Mucus (test code = Rare 8247-9) Squam Epithel, UA <1 See_Comment [Automate d (test code = message] The sy stem 39797-6) which generated this result transmitted reference range : /HPF. The refer ence range was not u sed to interpret th is result as normal/abnormal . Hyaline Casts, UA 18 See_Comment [Automate d (test code = message] The sy stem 37616-2) which generated this result transmitted reference range : /LPF. The refer ence range was not u sed to interpret th is result as normal/abnormal . Crystals, Urine None Seen (test code = 86490-9) Amorphous Crystals Rare (test code = 10250-5) JEFF (test code = [employer] ID - JEFF) tech [facility] CenterURINALYSIS [id number] 15:10:25 Test Item Value Reference Range Interpretation Comments RBC UA (BEAKER) (test code = 519) 2 /HPF WBC UA (BEAKER) (test code = 520) 1 /HPF BACTERIA (BEAKER) (test code = 517) Rare MUCUS (BEAKER) (test code = 1574) Rare SQUAMOUS EPITHELIAL (BEAKER) (test < /HPF code = 516) HYALINE CASTS (BEAKER) (test code = 18 /LPF 514) CRYSTALS, URINE (BEAKER) (test code None Seen = 1521) AMORPHOUS CRYSTALS (BEAKER) (test Rare code = 1584) [employer] ID - techUrinalysis with Microscopic If [id number] 15:10:20 Test Item Value Reference Range Interpretation Comments Color, UA (test code = Yellow 5778-6) Clarity, UA (test code = Clear 5767-9) Specific Wirtz, UA (test 1.016 1.001-1.035 code = 5811-5) pH, UA (test code = 5.5 5.0-8.0 5803-2) Protein, UA (test code = 10 mg/dL Negative A 03434-0) Glucose, UA (test code = Negative Negative 365) Ketones, UA (test code = Negative Negative 2514-8) Bilirubin, UA (test code = Negative Negative 42951-0) Blood, UA (test code = Negative Negative 16532-7) Nitrite, UA (test code = Negative Negative 5802-4) Leukocytes, UA (test code Negative Negative = 5799-2) Urobilinogen, UA (test 4.0 mg/dL 0.2-1.0 H code = 83120-8) Specimen Source (test code = 2795) JEFF (test code = JEFF) [employer] ID - [auto][employer] ID - tech Lab Interpretation (test Abnormal code = 00667-7) [facility] CenterURINALYSIS WITH MICROSCOPIC IF [id number] 15:10:20 Test Item Value Reference Range Interpretation Comments COLOR (BEAKER) (test code = 470) Yellow CLARITY (BEAKER) (test code = 469) Clear SPECIFIC GRAVITY UA (BEAKER) (test 1.016 1.001-1.035 code = 468) PH UA (BEAKER) (test code = 467) 5.5 5.0-8.0 PROTEIN UA (BEAKER) (test code = 10 mg/dL Negative A 464) GLUCOSE UA (BEAKER) (test code = Negative Negative 365) KETONES UA (BEAKER) (test code = Negative Negative 371) BILIRUBIN UA (BEAKER) (test code = Negative Negative 462) BLOOD UA (BEAKER) (test code = 461) Negative Negative NITRITE UA (BEAKER) (test code = Negative Negative 465) LEUKOCYTE ESTERASE UA (BEAKER) Negative Negative (test code = 466) UROBILINOGEN UA (BEAKER) (test code 4.0 mg/dL 0.2-1.0 H = 463) SOURCE(BEAKER) (test code = 2795) [employer] ID - [auto][employer] ID - techPOCT-GLUCOSE [id number] 12:38:07 Test Item Value Reference Range Interpretation Comments POC-GLUCOSE METER 119 mg/dL 70-110 H : TESTED A T [facility] 6720 (BEAKER) (test code = [facility], 1538) [address]: [employer]/Techni meaghan ID = [id number] for Juan M champion [place] POCT-GLUCOSE [id number] 12:38:06 Test Item Value Reference Range Interpretation Comments POC-GLUCOSE METER 89 mg/dL 70-110 : TESTED A T [facility] 6720 (BEAKER) (test code = [facility], 1538) [address]: [employer]/Techni meaghan ID = [id number] for [facility] [place] BASIC METABOLIC [id number] 05:27:13 Test Item Value Reference Range Interpretation Comments SODIUM (BEAKER) 132 meq/L 136-145 L (test code = 381) POTASSIUM (BEAKER) 4.5 meq/L 3.5-5.1 (test code = 379) CHLORIDE (BEAKER) 102 meq/L 98-107 (test code = 382) CO2 (BEAKER) (test 19 meq/L 22-29 L code = 355) BLOOD UREA NITROGEN 55 mg/dL 7-21 H (BEAKER) (test code = 354) CREATININE (BEAKER) 2.57 mg/dL 0.57-1.25 H (test code = 358) GLUCOSE RANDOM 102 mg/dL 70-105 (BEAKER) (test code = 652) CALCIUM (BEAKER) 8.6 mg/dL 8.4-10.2 (test code = 697) EGFR (BEAKER) (test 26 mL/min/1.73 ESTIMA CHINEDU GFR IS code = 1092) sq m NOT ACCURATE CREATININE CLEARANCE IN PREDICTING GLOMERULAR FILTRATION RATE . ESTIMATED GFR I S NOT APPLICABLE FOR DIALYSIS PATIEN TS. [employer] ID - EVERARDO LSpecimen slightly [id number] 05:25:31 Test Item Value Reference Range Interpretation Comments Lipase (test code = 108 U/L 8-78 H 3040-3) JEFF (test code = JEFF) [employer] ID - EVERARDO LSpecimen slightly icteric Lab Interpretation (test Abnormal code = 45099-3) [facility] CenterLIPASE2021-12-24 05:25:31 Test Item Value Reference Range Interpretation Comments LIPASE (BEAKER) (test code = 749) 108 U/L 8-78 H [employer] ID - EVERARDO LSpecimen slightly ictericLipid [id number] 05:25:30 Test Item Value Reference Range Interpretation Comments Triglycerides (test 59 mg/dL code = 2571-8) Cholesterol (test code 107 mg/dL = 2093-3) HDL (test code = 18 mg/dL 5-9) LDL Calculated (test 77 mg/dL code = 36738-0) JEFF (test code = JEFF) Triglyceride Reference Range: Low Risk <150 Borderline 150-199 High Risk 200-499 Very High Risk >=500 Cholesterol Reference Range: Low Risk <200 Borderline 200-239 High Risk >240 HDL Cholesterol Reference Range: Low Risk >=60 High Risk <40 LDL Cholesterol Reference Range: Optimal <100 Near Optimal 100-129 Borderline 130-159 High 160-189 Very High >=190 [employer] ID - EVERARDO PRUETTpecimen slightly icteric [facility] CenterLIPID [id number] 05:25:30 Test Item Value Reference Range Interpretation Comments TRIGLYCERIDES (BEAKER) (test code = 59 mg/dL 540) CHOLESTEROL (BEAKER) (test code = 107 mg/dL 631) HDL CHOLESTEROL (BEAKER) (test code 18 mg/dL = 976) LDL CHOLESTEROL CALCULATED (BEAKER) 77 mg/dL (test code = 633) Triglyceride Reference Range: Low Risk <150 Borderline 150-199 High Risk 200- 499 Very High Risk >=500Cholesterol Reference Range: Low Risk <200 Borderline 200-239 High Risk >240HDL Cholesterol Reference Range: Low Risk >=60 High Risk <40LDL Cholesterol Reference Range: Optimal <100 Near Optimal 100-129 Borderline 130-159 High 160-189 Very High >=190 [employer] ID Byron Baker slightly ictericHEPATIC FUNCTION [id number] 05:25:30 Test Item Value Reference Range Interpretation Comments TOTAL PROTEIN (BEAKER) (test code = 6.5 gm/dL 6.0-8.3 770) ALBUMIN (BEAKER) (test code = 1145) 3.3 g/dL 3.5-5.0 L BILIRUBIN TOTAL (BEAKER) (test code 3.7 mg/dL 0.2-1.2 H = 377) BILIRUBIN DIRECT (BEAKER) (test 3.0 mg/dL 0.1-0.5 H code = 706) ALKALINE PHOSPHATASE (BEAKER) (test 103 U/L 40-150 code = 346) AST (SGOT) (BEAKER) (test code = 642 U/L 5-34 H 353) ALT (SGPT) (BEAKER) (test code = 661 U/L 6-55 H 347) [employer] - EVERARDO Baker slightly pqewxgdAdxlytbhda4914-56-78 05:25:29 Test Item Value Reference Range Interpretation Comments Phosphorus (test code = 4.8 mg/dL 2.3-4.7 H 2777-1) JEFF (test code = JEFF) [employer] Byron MCGEE L Lab Interpretation (test Abnormal code = 24117-6) [facility] Test Item Value Reference Range Interpretation Comments PHOSPHORUS (BEAKER) (test code = 4.8 mg/dL 2.3-4.7 H 604) [employer] [facility] - EVERARDO [id number] 05:25:28 Test Item Value Reference Range Interpretation Comments MAGNESIUM (BEAKER) (test code = 2.5 mg/dL 1.6-2.6 627) [employer] - EVERARDO LProthrombin time/RDQ0426-12-36 04:53:12 Test Item Value Reference Interpretation Comments Range Protime (test code = 29.6 See_Comment H [Autom ated 5902-2) message] The system which generated this result transmitted reference range : 11.9 - 14.2 seconds. The reference range was not used to interpret this result as normal/abnormal . INR (test code = 2.85 See_Comment [Automated 6671-6) message] The system which generated this result transmitted reference range : <=5.90. The reference range was not used to interpret this result as normal/abnormal . JEFF (test code = RECOMMENDED JEFF) COUMADIN/WARFARIN INR THERAPY RANGESSTANDARD DOSE: 2.0 - 3.0 Includes: PROPHYLAXIS for venous thrombosis, systemic embolization; TREATMENT for venous thrombosis and/or pulmonary embolus.HIGH RISK: Target INR is 2.5-3.5 for patients with mechanical heart valves. Lab Interpretation Abnormal (test code = 19999-6) [facility][id number] 04:53:12 Test Item Value Reference Range Interpretation Comments PROTIME (BEAKER) 29.6 seconds 11.9-14.2 H (test code = 759) INR (BEAKER) (test 2.85 See_Comment [Automat ed message] code = 370) The system [employer] generated this result transmitted ref erence range: <=5.90. The reference range was not used to int erpret this result as normal/abnormal . RECOMMENDED COUMADIN/WARFARIN INR THERAPY RANGESSTANDARD DOSE: 2.0 - 3.0 Includes: PROPHYLAXIS for venous thrombosis, systemic embolization; TREATMENT for venous thrombosis and/or pulmonary embolus.HIGH RISK: Target INR is 2.5-3.5 for patients with mechanical heart valves.B-type Natriuretic Factor (BNP) 2021-01-30 04:51:36 Test Item Value Reference Range Interpretation Comments BNP (test code = 61596-8) 1864 pg/mL 0-100 H JEFF (test code = JEFF) [employer] ID - RAMÓN G Lab Interpretation (test Abnormal code = 30573-1) [facility] (BNP)2021-01-30 04:51:36 Test Item Value Reference Range Interpretation Comments B-TYPE NATRIURETIC PEPTIDE 1864 pg/mL 0-100 H (BEAKER) (test code = 700) [employer] BC - RAMÓN GLACTIC ACID, [id number] 04:45:11 Test Item Value Reference Range Interpretation Comments LACTATE BLOOD VENOUS 1.89 mmol/L 0.50-2.20 Specime n slightly (2) (BEAKER) (test hemolyzed code = 2872) [employer] ID - PIAYA LSpecimen slightly ictericCBC W/PLT COUNT & AUTO [id number] 04:35:07 Test Item Value Reference Range Interpretation Comments WHITE BLOOD CELL COUNT (BEAKER) 9.7 K/ L 3.5-10.5 (test code = 775) RED BLOOD CELL COUNT (BEAKER) 4.90 M/ L 4.63-6.08 (test code = 761) HEMOGLOBIN (BEAKER) (test code = 13.1 GM/DL 13.7-17.5 L 410) HEMATOCRIT (BEAKER) (test code = 39.6 % 40.1-51.0 L 411) MEAN CORPUSCULAR VOLUME (BEAKER) 80.8 fL 79.0-92.2 (test code = 753) MEAN CORPUSCULAR HEMOGLOBIN 26.7 pg 25.7-32.2 (BEAKER) (test code = 751) MEAN CORPUSCULAR HEMOGLOBIN CONC 33.1 GM/DL 32.3-36.5 (BEAKER) (test code = 752) RED CELL DISTRIBUTION WIDTH 20.3 % 11.6-14.4 H (BEAKER) (test code = 412) PLATELET COUNT (BEAKER) (test 218 K/CU MM 150-450 code = 756) MEAN PLATELET VOLUME (BEAKER) 11.5 fL 9.4-12.4 (test code = 754) NUCLEATED RED BLOOD CELLS 0 /100 WBC 0-0 (BEAKER) (test code = 413) NEUTROPHILS RELATIVE PERCENT 74 % (BEAKER) (test code = 429) LYMPHOCYTES RELATIVE PERCENT 10 % (BEAKER) (test code = 430) MONOCYTES RELATIVE PERCENT 15 % (BEAKER) (test code = 431) EOSINOPHILS RELATIVE PERCENT 0 % (BEAKER) (test code = 432) BASOPHILS RELATIVE PERCENT 0 % (BEAKER) (test code = 437) NEUTROPHILS ABSOLUTE COUNT 7.15 K/ L 1.78-5.38 H (BEAKER) (test code = 670) LYMPHOCYTES ABSOLUTE COUNT 0.94 K/ L 1.32-3.57 L (BEAKER) (test code = 414) MONOCYTES ABSOLUTE COUNT (BEAKER) 1.48 K/ L 0.30-0.82 H (test code = 415) EOSINOPHILS ABSOLUTE COUNT 0.01 K/ L 0.04-0.54 L (BEAKER) (test code = 416) BASOPHILS ABSOLUTE COUNT (BEAKER) 0.02 K/ L 0.01-0.08 (test code = 417) IMMATURE GRANULOCYTES-RELATIVE 1 % 0-1 PERCENT (BEAKER) (test code = 2801) POCT-GLUCOSE [id number] 01:24:38 Test Item Value Reference Range Interpretation Comments POC-GLUCOSE METER 166 mg/dL 70-110 H : TESTED A T [facility] 6720 (BEAKER) (test code = DARIANA [place], 1538) [address]: [employer]/Techni meaghan ID = [id number] for No rman, [place] UREA NITROGEN, RANDOM [id number] 00:25:52 Test Item Value Reference Range Interpretation Comments UREA NITROGEN URINE (BEAKER) (test 608 mg/dL code = 538) Reference Range: No NormalsOperator ID - EVERARDO LCREATININE, RANDOM URINE 2021-01-30 00:25:52 Test Item Value Reference Range Interpretation Comments CREATININE URINE (BEAKER) (test 114.1 mg/dL code = 375) Reference Range: No NormalsOperator ID - PIAYA LRAD, CHEST, 1 VIEW, NON DEPT 2021-01-29 23:59:00Reason for exam:->coughShould this be performed at the bedside?->YesSH[facility] : 1960 Sex: MFINAL REPORTPATIENT ID: [id number] EXAM/TECHNIQUE: Single view frontal radiograph of the chest. INDICATION: Cough.COMPARISON: None. FINDINGS: Devices/Objects: None. Lungs: No focal consolidation. No pleural effusion. No pneumothorax. Heart/Mediastinum: Mild cardiomegaly with basilar interstitial prominence. Osseous: No acute osseous process. No suspicious osseous lesion. Upper abdomen: Unremarkable. Impression: Pulmonary vascular congestion. Signed: Cody Pandey Verified Date/Time: 01/29/2021 23:59:16 POCT glycosylated hemoglobin (Hb A1C) docked [id number] 17:02:00 Test Item Value Reference Range Interpretation Comments Hemoglobin A1C (test code = 4548-4) [facility] [id number] 16:58:00 Test Item Value Reference Range Interpretation Comments Glucose Blood, POC (test code = 118 mg/dL 70-078 [id number]) [facility] [id number] 16:25:00 Test Item Value Reference Range Interpretation Comments Glucose Blood, POC (test code = 100 mg/dL 70-512 [id number]) [facility] (Hb A1C) docked [id number] 16:25:00 Test Item Value Reference Range Interpretation Comments Hemoglobin A1C (test code = 4548-4) [facility]2020-03-06 19:33:00 Test Item Value Reference Range Interpretation Comments POCT INFLUENZA A (test code = NEG Negative - Negative 3840) POCT INFLUENZA B (test code = NEG Negative - Negative 3841) Lab Interpretation (test code = Normal 62859-1) [facility] (MOLECULAR)2020-03-06 19:27:00 Test Item Value Reference Range Interpretation Comments POCT GP A STREP (test code = neg Negative - Negative 13858-9) Lab Interpretation (test code = Normal 07696-8) [facility]
[2021-10-10] MEDS ORDERED: MORPHINE 4 MG/ML SYR ONE (06:12)
[2021-10-10 06:13] LABS: Absolute Lymphocytes (CBC) 1.8 K/uL (0.7-4.9); Hematocrit 40.7 % (39.6-49.0); Lymphocytes % 12.1 % (15.3-44.8); MCV 78.4 fL (80-100); MPV 9.8 fL (7.6-11.3); RBC Red Blood Cell Count 5.19 M/uL (4.33-5.43)
[2021-10-10] MEDS ORDERED: NA CHLORIDE 0.9% 1,000 ML ONE (06:13)
[2021-10-10] MEDS ORDERED: ONDANSETRON 4 MG/2 ML VIAL ONE (06:13)
[2021-10-10 06:14] LABS: Protime INR 1.88
[2021-10-10 06:27] LABS: Albumin 3.4 g/dL (3.4-5.0); Bilirubin Direct 0.4 mg/dL (0-0.2); Magnesium 2.4 mg/dL (1.8-2.4); Potassium 4.6 mmol/L (3.5-5.1); Protein, Total 7.3 g/dL (6.4-8.2); Troponin High Sensitivity 24.3 pg/mL (<58.9)
[2021-10-10 06:39] LABS: SARS-CoV-2 Antigen Rapid Res Negative (Negative)
--- NOTE | 2021-10-10 07:38 | EDPHYS ---
Physician Documentation [facility] Name: Enma Ribeiro Age: 61 yrs Sex: Male : 1960 Arrival Date: 10/10/2021 Time: 05:31 Bed 18 Private MD: ED Physician Macho Singh HPI: 10/10 05:50 This 61 yrs old Male presents to ER via EMS with complaints of Leg Pain. cricket 05:50 The patient presents with decreased range of motion, pain, that is acute. The cricket complaints affect the lateral aspect of right calf, right ankle, right calf, right Achilles, medial aspect of right calf, right may and anterior aspect of right ankle. Context: resulted from the patient falling, the patient is not able to bear weight. Onset: The symptoms/episode began/occurred yesterday. Modifying factors: The symptoms are alleviated by nothing. elevating leg, remaining still. Associated signs and symptoms: Pertinent positives: weakness. Historical: - Allergies: 05:42 Keflex; ja4 - Immunization history:: Adult Immunizations up to date. - Family history:: not pertinent. ROS: 05:50 Constitutional: Negative for fever, chills, and weight loss, Eyes: Negative for injury, cricket pain, redness, and discharge, ENT: Negative for injury, pain, and discharge, Neck: Negative for injury, pain, and swelling, Cardiovascular: Negative for chest pain, palpitations, and edema, Respiratory: Negative for shortness of breath, cough, wheezing, and pleuritic chest pain, Abdomen/GI: Negative for abdominal pain, nausea, vomiting, diarrhea, and constipation, Back: Negative for injury and pain, : Negative for injury, bleeding, discharge, and swelling, Skin: Negative for injury, rash, and discoloration, Neuro: Negative for headache, weakness, numbness, tingling, and seizure, Psych: Negative for depression, anxiety, suicide ideation, homicidal ideation, and hallucinations, Allergy/Immunology: Negative for hives, rash, and allergies, Endocrine: Negative for neck swelling, polydipsia, polyuria, polyphagia, and marked weight changes. 05:50 MS/extremity: Positive for injury or acute deformity, decreased range of motion, pain, of the lateral aspect of right calf, right ankle, lateral aspect of right foot, medial aspect of right calf, medial aspect of right foot, right may, anterior aspect of right ankle and dorsum of right foot. Exam: 05:50 Constitutional: This is a well developed, well nourished patient who is awake, alert, cricket and in no acute distress. Head/Face: Normocephalic, atraumatic. Eyes: Pupils equal round and reactive to light, extra-ocular motions intact. Lids and lashes normal. Conjunctiva and sclera are non-icteric and not injected. Cornea within normal limits. Periorbital areas with no swelling, redness, or edema. ENT: Nares patent. No nasal discharge, no septal abnormalities noted. Tympanic membranes are normal and external auditory canals are clear. Oropharynx with no redness, swelling, or masses, exudates, or evidence of obstruction, uvula midline. Mucous membranes moist. Neck: Trachea midline, no thyromegaly or masses palpated, and no cervical lymphadenopathy. Supple, full range of motion without nuchal rigidity, or vertebral point tenderness. No Meningismus. Chest/axilla: Normal chest wall appearance and motion. Nontender with no deformity. No lesions are appreciated. Cardiovascular: Regular rate and rhythm with a normal S1 and S2. No gallops, murmurs, or rubs. Normal PMI, no JVD. No pulse deficits. Respiratory: Lungs have equal breath sounds bilaterally, clear to auscultation and percussion. No rales, rhonchi or wheezes noted. No increased work of breathing, no retractions or nasal flaring. Abdomen/GI: Soft, non-tender, with normal bowel sounds. No distension or tympany. No guarding or rebound. No evidence of tenderness throughout. Back: No spinal tenderness. No costovertebral tenderness. Full range of motion. Male : Normal genitalia with no discharge or lesions. Skin: Warm, dry with normal turgor. Normal color with no rashes, no lesions, and no evidence of cellulitis. Neuro: Awake and alert, GCS 15, oriented to person, place, time, and situation. Cranial nerves II-XII grossly intact. Motor strength 5/5 in all extremities. Sensory grossly intact. Cerebellar exam normal. Normal gait. Psych: Awake, alert, with orientation to person, place and time. Behavior, mood, and affect are within normal limits. 05:50 Musculoskeletal/extremity: ROM: limited active range of motion, limited passive range of motion, limited active range of motion due to pain, limited passive range of motion due to pain, Pulses: noted to be 1+ in the right posterior tibial artery and right dorsalis pedis artery, Calf tenderness, that is moderate, Joints: All joints are normal except the right ankle displays pain at rest, painful range of motion, tenderness. 05:50 Neuro: Orientation: is normal, appropriate for stated age, no acute changes, Mentation: is normal, appropriate for stated age, no acute changes, Memory: is normal, appropriate for stated age, no acute changes, Cranial nerves: grossly normal, Cerebellar function: is grossly normal, is grossly normal based on the patient's age, no acute changes. 06:13 ECG was reviewed by the Attending Physician. [facility] Vital Signs: 05:40 BP 101 / 43; Pulse 57; Resp 17; Pulse Ox 98% ; Weight 83.46 kg; Height 6 ft. 0 in. ja4 (182.88 cm); Pain 10/10; 05:46 BP 101 / 43; Pulse 59; Resp 16; Pulse Ox 98% ; ja4 08:20 BP 117 / 66; Pulse 80; Resp 20; Temp 98; Pulse Ox 98% ; Pain 6/10; mb8 05:40 Body Mass Index 24.95 (83.46 kg, 182.88 cm) ja4 MDM: 05:32 Patient medically screened. [facility] 05:55 Data reviewed: vital signs, nurses notes, lab test result(s), EKG, radiologic studies, [facility] plain films. Data interpreted: autopsy assistant: rate is 59 beats/min, rhythm is regular, Pulse oximetry: on room air is 98 %. Test interpretation: by ED physician or midlevel provider: ECG, plain radiologic studies. Counseling: I had a detailed discussion with the patient and/or guardian regarding: the historical points, exam findings, and any diagnostic results supporting the discharge/admit diagnosis, lab results, radiology results, the need for outpatient follow up. 10/10 05:50 Order name: Basic Metabolic Panel [facility] 10/10 05:50 Order name: CBC with Diff [facility] 10/10 05:50 Order name: LFT's [facility] 10/10 05:50 Order name: Magnesium [facility] 10/10 05:50 Order name: NT PRO-BNP [facility] 10/10 05:50 Order name: PT-INR [facility] 10/10 05:50 Order name: Troponin HS 10/10 05:50 Order name: XRAY Chest (1 view) [facility] 10/10 05:50 Order name: US LE Artery Uni Ltd 10/10 05:50 Order name: Tib Fib Right XRAY [facility] 10/10 05:50 Order name: Foot Right 3 View XRAY 10/10 05:50 Order name: SARS RAPID 10/10 05:50 Order name: EKG; Complete Time: 05:51 [facility] 10/10 05:50 Order name: Cardiac monitoring; Complete Time: 06:09 [facility] 10/10 05:50 Order name: EKG - Nurse/Tech; Complete Time: 06:04 [facility] 10/10 05:50 Order name: IV Saline Lock; Complete Time: 05:55 [facility] 10/10 05:50 Order name: Labs collected and sent; Complete Time: 05:55 [facility] 10/10 05:50 Order name: O2 Per Protocol; Complete Time: 06:04 [facility] 10/10 05:50 Order name: O2 Sat Monitoring; Complete Time: 06:04 [facility] 10/10 05:57 Order name: Wound Care; Complete Time: 06:01 [facility] EC:13 Rate is 60 beats/min. Rhythm is regular. QRS [place] is Normal. TN interval is normal. QT cricket interval is normal. No Q waves. T waves are Inverted in leads I, aVL. ST Segment is depressed in leads II, V2, V3, V4, V5, V6. Clinical impression: Abnormal EKG without significant change and No evidence of ischemia. Interpreted by me. Reviewed by me. Administered Medications: 06:01 Drug: Neosporin (ixefecwz-bwkjjyjfjv-okqusjfog) Ointment 1 application Route: Topical; ja4 Site: affected area; 08:32 Follow up: Response: No adverse reaction mb8 06:08 Drug: NS 0.9% 500 ml Route: IV; Rate: bolus; Site: left forearm; ja4 06:08 Drug: NS 0.9% 1000 ml Route: IV; Rate: 75 ml/hr; Site: left forearm; ja4 06:08 Drug: morphine 2 mg Route: IVP; Infused Over: 4 mins; Site: left forearm; ja4 08:32 Follow up: Response: No adverse reaction mb8 06:08 Drug: morphine 2 mg Route: IVP; Infused Over: 4 mins; Site: left forearm; ja4 08:32 Follow up: Response: No adverse reaction mb8 06:08 Drug: Zofran (Ondansetron) 4 mg Route: IVP; Site: left forearm; ja4 08:32 Follow up: Response: No adverse reaction mb8 07:41 Drug: Bactroban (mupirocin) Ointment 2 % 1 application Route: Topical; Site: wound; mb8 08:32 Drug: fentaNYL Patch (50 mcg/hr) 1 patches Route: Transdermal; Site: anterior chest mb8 wall; Disposition Summary: 10/10/21 07:37 Discharge Ordered Location: Home cricket Problem: new cricket Symptoms: have improved cricket Condition: Stable cricket Diagnosis - Peripheral vascular disease, unspecified cricket - Fall on same level, unspecified cricket - Abrasion, right foot cricket Followup: cricket - With: Private Physician - When: 2 - 3 days - Reason: Recheck today's complaints, Continuance of care, Re-evaluation by your physician Followup: cricket - With: Jovany Pace MD - When: 2 - 3 days - Reason: Recheck today's complaints, Re-evaluation by your physician Followup: cricket - With: Garfield Adam MD - When: 2 - 3 days - Reason: Recheck today's complaints, Re-evaluation by your physician Discharge Instructions: - Discharge Summary Sheet cricket - Peripheral Vascular Disease cricket - Angiogram cricket - Angiogram, Igju-rg-Spfm cricket - Peripheral Vascular Disease, Sflr-vd-Fttp [facility] Forms: - Medication Reconciliation Form cricket - Thank You Letter cricket - Antibiotic Education cricket - Prescription Opioid Use [facility] Prescriptions: - Centany 2 % Topical ointment - apply 1 application by TOPICAL route 3 times per day; 45 gram; Refills: 0, [facility] Product Selection Permitted - Zofran 4 mg Oral Tablet - take 1 tablet by ORAL route every 12 hours As needed; 20 tablet; Refills: 0, [facility] Product Selection Permitted - Tramadol 50 mg Oral Tablet - take 1 tablet by ORAL route every 8 hours as needed; 20 tablet; Refills: 0, [facility] Product Selection Permitted - Pepcid 20 mg Oral Tablet - take 1 tablet by ORAL route every 12 hours for 21 days; 42 tablet; Refills: 0, [facility] Product Selection Permitted Signatures: Dispatcher [employer] Macho Madsen MD MD cha Allen, Jeremy RN RN ja4 Omar Polanco RN RN mb8 Corrections: (The following items were deleted from the chart) 05:43 05:42 PMHx: Diabetes - IDDM; shai4 ivonne 05:43 05:42 PMHx: CVA; shai4 ivonne 05:43 05:42 PMHx: Hypertension; ivonne coronado 05:43 05:42 PMHx: Aphasia; shai4 ivonne 05:43 05:42 PMHx: Atrial fibrillation; ja4 shai4
--- NOTE | 2021-10-10 07:38 | ER ---
Nurse's Notes [facility] Name: Enma Riebiro Age: 61 yrs Sex: Male : 1960 Arrival Date: 10/10/2021 Time: 05:31 Bed 18 Private MD: Diagnosis: Peripheral vascular disease, unspecified;Fall on same level, unspecified;Abrasion, right foot Presentation: 10/10 05:40 Chief complaint: Patient states: right leg pain to move. Coronavirus screen: At this ja4 time, the client does not indicate any symptoms associated with coronavirus-19. Ebola Screen: Patient denies exposure to infectious person. Patient denies travel to an Ebola-affected area in the 21 days before illness onset. No symptoms or risks identified at this time. 05:40 Method Of Arrival: EMS ja4 05:41 Initial Sepsis Screen: Does the patient meet any 2 criteria? No. Patient's initial ja4 sepsis screen is negative. Does the patient have a suspected source of infection? No. Patient's initial sepsis screen is negative. Risk Assessment: Do you want to hurt yourself or someone else? Patient reports no desire to harm self or others. Onset of symptoms was October 09, 2021. 05:41 Acuity: SIERRA 2 ja4 Triage Assessment: 05:42 General: Appears distressed, uncomfortable, obese, Behavior is cooperative, appropriate ja4 for age, agitated. Pain: Complains of pain in right leg and left leg Pain currently is 10 out of 10 on a pain scale. at worst was 10 out of 10 on a pain scale. Pain began 1 day ago. Neuro: No deficits noted. Cardiovascular: No deficits noted. Respiratory: No deficits noted. Musculoskeletal: discoloration. Historical: - Allergies: 05:42 Keflex; ja4 - Immunization history:: Adult Immunizations up to date. - Family history:: not pertinent. Screenin:47 Abuse screen: Denies threats or abuse. Nutritional screening: No deficits noted. ja4 Tuberculosis screening: No symptoms or risk factors identified. Fall Risk Gait- Impaired (20 pts.). Total Mcf[place]ane Fall Scale indicates High Risk Score (45 or more points). Fall prevention measures have been instituted. Side Rails Up X 2 Family Present and informed to notify staff if the need to leave the bedside. Assessment: 05:47 Reassessment: see triage notes. 4 Vital Signs: 05:40 BP 101 / 43; Pulse 57; Resp 17; Pulse Ox 98% ; Weight 83.46 kg; Height 6 ft. 0 in. ja4 (182.88 cm); Pain 10/10; 05:46 BP 101 / 43; Pulse 59; Resp 16; Pulse Ox 98% ; ja4 08:20 BP 117 / 66; Pulse 80; Resp 20; Temp 98; Pulse Ox 98% ; Pain 6/10; mb8 05:40 Body Mass Index 24.95 (83.46 kg, 182.88 cm) [facility] ED Course: 05:31 Patient arrived in ED. wm 05:32 Macho Singh MD is Attending Physician. cricket 05:39 Edwin Corral RN is Primary Nurse. [facility] 05:42 Triage completed. 4 05:47 Bed in low position. Call light in reach. Side rails up X2. Adult w/ patient. [facility] 05:47 No provider procedures requiring assistance completed. Inserted saline lock: 20 gauge [facility] in left forearm, using aseptic technique. Blood collected. 05:55 Basic Metabolic Panel Sent. 4 05:55 CBC with Diff Sent. 4 05:55 LFT's Sent. ja4 05:55 Magnesium Sent. 4 05:55 NT PRO-BNP Sent. 4 05:55 PT-INR Sent. 4 05:55 Troponin HS Sent. 4 06:01 SARS RAPID Sent. ja4 07:09 XRAY Chest (1 view) In Process Unspecified. EDMS 07:09 Tib Fib Right XRAY In Process Unspecified. EDMS 07:09 Foot Right 3 View XRAY In Process Unspecified. EDMS 07:10 US LE Artery Uni Ltd In Process Unspecified. EDMS 07:36 Jovany Pace MD is Referral Physician. cricket 07:36 Garfield Adam MD is Referral Physician. cricket 08:32 Arm band placed on. mb8 08:33 IV discontinued, intact, bleeding controlled, No redness/swelling at site. Pressure mb8 dressing applied. Administered Medications: 06:01 Drug: Neosporin (rtgpyorv-fubnzglyqd-zkvjvscca) Ointment 1 application Route: Topical; [facility] Site: affected area; 08:32 Follow up: Response: No adverse reaction mb8 06:08 Drug: NS 0.9% 500 ml Route: IV; Rate: bolus; Site: left forearm; ja4 06:08 Drug: NS 0.9% 1000 ml Route: IV; Rate: 75 ml/hr; Site: left forearm; ja4 06:08 Drug: morphine 2 mg Route: IVP; Infused Over: 4 mins; Site: left forearm; ja4 08:32 Follow up: Response: No adverse reaction mb8 06:08 Drug: morphine 2 mg Route: IVP; Infused Over: 4 mins; Site: left forearm; ja4 08:32 Follow up: Response: No adverse reaction mb8 06:08 Drug: Zofran (Ondansetron) 4 mg Route: IVP; Site: left forearm; ja4 08:32 Follow up: Response: No adverse reaction 8 07:41 Drug: Bactroban (mupirocin) Ointment 2 % 1 application Route: Topical; Site: wound; 8 08:32 Drug: fentaNYL Patch (50 mcg/hr) 1 patches Route: Transdermal; Site: anterior chest mb8 wall; Medication: 05:47 VIS not applicable for this client. Outcome: 07:37 Discharge ordered by MD. harley 08:33 Discharged to home via wheelchair, with family. [facility] 08:33 Condition: stable 08:33 Discharge instructions given to patient, family, Instructed on discharge instructions, follow up and referral plans. no drinking with medication, no driving heavy equipment, medication usage, wound care, Demonstrated understanding of instructions, follow-up care, medications, wound care, Prescriptions given X 4. 08:34 Patient left the ED. mb8 Signatures: Dispatcher [employer] EDCA Macho Singh MD MD cha Marsh, Wendy wm Allen, Jeremy, RN RN ja Omar Polanco RN RN mb8 Corrections: (The following items were deleted from the chart) 05:43 05:42 PMHx: Diabetes - IDDM; 05:43 05:42 PMHx: CVA; 05:43 05:42 PMHx: Hypertension; 05:43 05:42 PMHx: Aphasia; 05:43 05:42 PMHx: Atrial fibrillation;
[2021-10-10] MEDS ORDERED: MUPIROCIN 2% OINT 22GM TUBE TOP ONE (07:46)
[2021-10-10] MEDS ORDERED: FENTANYL 50 MCG/PATCH TD ONE (08:00)
--- NOTE | 2021-10-10 08:04 | RAD REPORT ---
EXAM DESCRIPTION: RAD - Foot Right 3 View - 10/10/2021 7:07 am CLINICAL HISTORY: PAIN COMPARISON: Tib Fib Right dated 10/10/2021; Chest Single View dated 10/10/2021; Lower Extremity Artery U ni Ltd dated 10/10/2021 FINDINGS/IMPRESSION: No acute fracture. No malalignment. No significant focal degenerative changes. Peripheral vascular calcifications.
--- NOTE | 2021-10-10 08:05 | RAD REPORT ---
EXAM DESCRIPTION: RAD - Tib Fib Right - 10/10/2021 7:07 am CLINICAL HISTORY: PAIN COMPARISON: No comparisons FINDINGS/IMPRESSION: No acute fracture. No malalignment. No significant focal degenerative changes.
--- NOTE | 2021-10-10 08:05 | RAD REPORT ---
EXAM DESCRIPTION: RAD - Chest Single View - 10/10/2021 7:07 am CLINICAL HISTORY: COUGH COMPARISON: Chest Pa And Lat (2 Views) dated 08/20/2021; Chest Single View dated 01/29/2021; Chest Si ngle View dated 04/18/2020; Chest Pa And Lat (2 Views) dated 07/04/2018 FINDINGS: Lines: None. Lungs: Pulmonary vascular congestion. No consolidative airspace disease. Pleural: No significant pleural effusions or pneumothorax. Cardiac: Cardiomegaly. Sternotomy. Mediastinum: Within normal limits. Bones: No acute fractures. Other: None IMPRESSION: Pulmonary vascular congestion without diana pulmonary edema.
--- NOTE | 2021-10-10 08:08 | RAD REPORT ---
EXAM DESCRIPTION: [place] - Lower Extremity [facility] [employer] - 10/10/2021 7:08 am CLINICAL HISTORY: Leg pain COMPARISON: None FINDINGS: Color Doppler, grayscale, and spectral analysis was performed. Triphasic flow is present in the right common femoral artery. There is also triphasic flow in the rig ht proximal SFA. At the mid SFA, the flow transitions to monophasic waveforms which extends into the popliteal artery is, posterior tibial artery, and dorsalis pedis artery. Hard plaque is seen througho ut the common femoral and superficial femoral arteries. IMPRESSION: Severe stenosis at the mid SFA with monophasic waveforms beyond the stenosis.
--- NOTE | 2021-10-10 09:19 | EKG ---
Test Date: 2021-10-10 Test Time: 06:02:49 Foundation Relations Manager: KAREY MEASUREMENT RESULTS: Intervals: Rate: 60 [place]: 190 QRSD: 114 QT: 496 QTc: 496 [place]: P: 74 [place]: 190 QRS: 76 T: 116 INTERPRETIVE STATEMENTS: Normal sinus rhythm Nonspecific ST and T wave abnormality Prolonged QT Abnormal ECG Compared to ECG 08/20/2021 12:56:44 Sinus bradycardia no longer present ST (T wave) deviation still present Electronically Signed On 10-10-21 09:18:26 CDT by Garfield Adam
== END 2021-10-10 08:34 | disposition home or self-care (01) ==
LOC: ER 05:28
DX: I73.9 Peripheral vascular disease, unspecified (principal); S90.811A Abrasion, right foot, initial encounter; W18.30XA Fall on same level, unspecified, initial encounter; R53.1 Weakness; Z88.1 Allergy status to other antibiotic agents; Z20.822 Contact with and (suspected) exposure to COVID-19
CPT/HCPCS: 93005; 85025; 80048; 36415; 83735; 85610; 80076; 84484; 83880; 71045; 73630; 73590; 93926; 96375; 96374; 99284; 87811; J7030; J2405